=== PATIENT | female | born 1975 | race Caucasian/White ===

== ENCOUNTER 2020-07-06 07:47 | Outpatient (REF) | payer OTHER, SELFPAY ==
[2020-07-06 10:46] LABS: Alanine Aminotransferase 25 U/L (0-31); Albumin Level 4.2 g/dL (3.5-5.0); Alkaline Phosphatase 75 U/L (39-117); Anion Gap 12 (12-20); Aspartate Amino Transferase 20 U/L (5-31); Bilirubin Total 0.2 mg/dL (0.0-1.0); Blood Urea Nitrogen 11 mg/dL (9-16); Calcium 9.2 mg/dL (8.4-10.2); Carbon Dioxide 26 mmol/L (22-29); Chloride 105 mmol/L (96-108); Cholesterol 233 mg/dL; Estimated Glomerular Filt Rate > 60; Glucose Fasting 90 mg/dL (60-99); HDL Cholesterol 44 mg/dL; LDL Cholesterol Calculated 167 mg/dl; Potassium 5.3 mmol/l (3.3-5.1); Sodium 138 mmol/L (135-145); Triglycerides 113 mg/dL
[2020-07-06 10:59] LABS: Vitamin D 25-OH Total 19.9 ng/mL (>30)
== END 2020-07-06 07:48 | disposition home or self-care (01) ==
LOC: HO.10HDL 07:47
PROVIDERS: Absent Provider Internal Medicine Hypertension Specialist; PCP Internal Medicine; Visit Provider Internal Medicine
DX: I10 Essential (primary) hypertension (principal); E55.9 Vitamin D deficiency, unspecified
CPT/HCPCS: 80053; 80061; 82306

== ENCOUNTER 2020-07-24 09:06 | Outpatient (REF) | payer OTHER, SELFPAY ==
[2020-07-24 09:25] LABS: COVID-19 Test Negative (Negative)
== END 2020-07-24 09:07 | disposition home or self-care (01) ==
LOC: HO.EMPCOV 09:06
PROVIDERS: PCP Internal Medicine; Visit Provider Internal Medicine
DX: Z20.828 Contact with and (suspected) exposure to other viral communicable diseases (principal)
CPT/HCPCS: 87635; C9803

== ENCOUNTER 2020-08-07 16:59 | Outpatient (REF) | payer OTHER, SELFPAY ==
--- NOTE | 2020-08-07 17:05 | XR_ITS ---
EXAMINATION: CHEST 2 VIEWS CLINICAL INFORMATION: J18.9 - Pneumonia, unspecified organism . COMPARISON: 11/22/2019. TECHNIQUE: PA and lateral views of the chest obtained. FINDINGS: The lungs are well expanded. No focal infiltrate, effusion, edema, or pneumothorax. Cardiac and mediastinal silhouettes are within normal limits for technique. No acute bony abnormality seen XR/XR chest 2V IMPRESSION: No evidence of acute disease. Specifically no dense consolidation seen.
== END 2020-08-07 17:00 | disposition home or self-care (01) ==
LOC: HO.XRAY 16:59
PROVIDERS: PCP Internal Medicine; Visit Provider Physician Assistant
DX: J18.9 Pneumonia, unspecified organism (principal)
CPT/HCPCS: 71046

== ENCOUNTER 2020-08-18 11:21 | Outpatient (REF) | payer OTHER, SELFPAY ==
[2020-08-18 12:11] LABS: COVID-19 Test Negative (Negative)
== END 2020-08-18 11:22 | disposition home or self-care (01) ==
LOC: HO.EMPCOV 11:21
PROVIDERS: Visit Provider Internal Medicine
DX: Z20.822 Contact with and (suspected) exposure to COVID-19 (principal)
CPT/HCPCS: 36415; 87635; C9803

== ENCOUNTER 2020-09-07 14:31 | Outpatient (REF) | payer OTHER, SELFPAY ==
[2020-09-07 15:53] LABS: MANUAL DIFF FLAG NO
[2020-09-07 15:56] LABS: Basophils Percent Auto 0.4 % (0-2); Eosinophils Absolute Auto 0.4 X10*3/uL (0.0-0.4); Eosinophils Percent Auto 4.9 % (0-4); Hematocrit 38.4 % (37-47); Hemoglobin 13.4 g/dl (12.0-16.0); Imm Gran Abs Auto 0.03 X10*3/uL (0.00-0.03); Imm Gran Pct Auto 0.4 % (0.0-0.4); Lymphocytes Absolute Auto 2.7 X10*3/uL (1.2-4.9); Lymphocytes Percent Auto 32.3 % (20-40); Mean Corpuscular HGB Conc 34.9 g/dl (31.0-35.0); Mean Corpuscular Volume 94.6 fL (80-98); Mean Platelet Volume 9.6 fL (9.4-12.3); Monocytes Absolute Auto 0.7 X10*3/uL (0.1-1.2); Monocytes Percent Auto 8.2 % (2-11); Neutrophils Absolute Auto 4.5 X10*3/uL (2.0-8.3); Neutrophils Percent Auto 53.8 % (45-73); Platelet Count 404 X10*3/uL (160-400); Red Blood Count 4.06 X10*6/uL (4.20-5.50); Red Cell Distribution Width 11.8 % (11.0-16.0); White Blood Count 8.3 X10*3/uL (4.8-10.8)
== END 2020-09-07 14:32 | disposition home or self-care (01) ==
LOC: HO.LAB 14:31
PROVIDERS: PCP Internal Medicine; Visit Provider Internal Medicine Pulmonary Disease
DX: J45.50 Severe persistent asthma, uncomplicated (principal); J45.991 Cough variant asthma; Z91.09 Other allergy status, other than to drugs and biological substances; Z79.899 Other long term (current) drug therapy
CPT/HCPCS: 36415; 82785; 85025; 86003

== ENCOUNTER 2020-09-21 07:49 | Outpatient (REF) | payer OTHER, SELFPAY ==
--- NOTE | 2020-09-21 17:25 | PFT_ITS ---
Forced vital capacity slightly decreased. FEV1 also slightly decreased. [id number] moderately decreased and MVV is normal. Post bronchodilator therapy, there is a slight improvement in [id number]. Total lung capacity and residual volume normal. Diffusion capacity normal. CONCLUSION: Mild degree of small airway obstructive disorder, which improves after bronchodilator therapy. This finding is suggestive of mild bronchial asthma. Clinical correlation is recommended. MD AMBER Ku/MODL / [id number]
== END 2020-09-21 07:50 | disposition home or self-care (01) ==
LOC: HO.RESP 07:49
PROVIDERS: PCP Internal Medicine; Visit Provider Internal Medicine Pulmonary Disease
DX: J45.991 Cough variant asthma (principal)
CPT/HCPCS: 94060; 94727; 94729

== ENCOUNTER → 2020-09-28 09:08 | Outpatient (BNVA) | payer OTHER, SELFPAY | PROVIDERS: PCP Internal Medicine; Visit Provider Internal Medicine Pulmonary Disease ==

== ENCOUNTER 2020-10-05 07:54 | Outpatient (REF) | payer OTHER, SELFPAY ==
--- NOTE | ~2020-10-05 | MM_ITS ---
EXAMINATION: MM SCREENING DIGITAL BREAST TOMOSYNTHESIS, BILATERAL CLINICAL INFORMATION: Screening. Asymptomatic. The lifetime risk of breast cancer based on the Tyrer-Cuzick Model is 7.3%. COMPARISON: Mammography: July 01, 2019 and studies dating back to March 15, 2013 TECHNIQUE: Digital breast tomosynthesis is performed in both the craniocaudal and mediolateral oblique views along with computer-aided detection (CAD). Synthesized 2D images are generated from the tomosynthesis. FINDINGS: The breasts are almost entirely fatty (ACR BI-RADS breast composition Category a). There are no significant masses, abnormal calcifications, or other abnormalities. MM/MM tomosynthesis screening BI IMPRESSION: There are no significant changes from prior study. ASSESSMENT: BI-RADS 1: Negative RECOMMENDATION: Routine annual mammography screening. This patient's information was entered into a reminder system with a target due date for their next mammogram.
== END 2020-10-05 07:55 | disposition home or self-care (01) ==
LOC: HO.MAMMO 07:54
PROVIDERS: PCP Internal Medicine; Visit Provider Internal Medicine
DX: Z12.31 Encounter for screening mammogram for malignant neoplasm of breast (principal)
CPT/HCPCS: 77063; 77067

== ENCOUNTER 2021-01-09 06:03 | Outpatient (REF) | payer OTHER, SELFPAY ==
[2021-01-09 06:55] LABS: Anion Gap 12 (12-20); Blood Urea Nitrogen 12 mg/dL (9-16); Calcium 9.2 mg/dL (8.4-10.2); Carbon Dioxide 23 mmol/L (22-29); Chloride 107 mmol/L (96-108); Cholesterol 248 mg/dL; Estimated Glomerular Filt Rate > 60; HDL Cholesterol 45 mg/dL; LDL Cholesterol Calculated 172 mg/dl; Potassium 4.2 mmol/L (3.3-5.1); Sodium 138 mmol/L (135-145); Triglycerides 157 mg/dL
== END 2021-01-09 06:04 | disposition home or self-care (01) ==
LOC: HO.LAB 06:03
PROVIDERS: Absent Provider Internal Medicine; PCP Internal Medicine; Visit Provider Internal Medicine Hypertension Specialist
DX: I10 Essential (primary) hypertension (principal)
CPT/HCPCS: 36415; 80051; 80061; 82310; 82565; 84520

== ENCOUNTER 2021-02-07 13:54 | Outpatient (REF) | payer OTHER, SELFPAY | END 2021-02-07 13:55 | disposition home or self-care (01) | LOC: HO.LNP 13:54 | PROVIDERS: Visit Provider Internal Medicine | DX: Z20.822 Contact with and (suspected) exposure to COVID-19 (principal) | CPT/HCPCS: U0003; U0005 ==

== ENCOUNTER 2021-04-07 06:37 | Outpatient (REF) | payer OTHER, SELFPAY ==
[2021-04-07 11:48] LABS: Cholesterol 231 mg/dL; HDL Cholesterol 44 mg/dL; LDL Cholesterol Calculated 161 mg/dl; Triglycerides 131 mg/dL
[2021-04-10 22:46] LABS: Immunoglobulin E 355 kU/L (<OR=114)
[2021-04-11 15:30] LABS: Vitamin D 25-OH, D2 <4 ng/mL; Vitamin D 25-OH, D3 20 ng/mL; Vitamin D 25-OH, Total 20 ng/mL (30-100)
== END 2021-04-07 06:38 | disposition home or self-care (01) ==
LOC: HO.HMGCLDS 06:37
PROVIDERS: Internal Medicine Pulmonary Disease; PCP Internal Medicine; Visit Provider Internal Medicine
DX: E55.9 Vitamin D deficiency, unspecified (principal); E78.5 Hyperlipidemia, unspecified; Z91.09 Other allergy status, other than to drugs and biological substances
CPT/HCPCS: 36415; 80061; 82306; 82785

== ENCOUNTER 2021-04-18 11:11 | Outpatient (REF) | payer OTHER, SELFPAY | END 2021-04-18 11:12 | disposition home or self-care (01) | LOC: HO.LNP 11:11 | PROVIDERS: Visit Provider Physician Assistant Medical | DX: Z20.822 Contact with and (suspected) exposure to COVID-19 (principal) | CPT/HCPCS: U0003; U0005 ==

== ENCOUNTER → 2021-05-04 15:37 | Outpatient (BNVA) | payer OTHER, SELFPAY | PROVIDERS: PCP Internal Medicine; Visit Provider Internal Medicine Pulmonary Disease ==

== ENCOUNTER 2021-05-25 08:22 | Outpatient (REF) | payer OTHER, SELFPAY | END 2021-05-25 08:23 | disposition home or self-care (01) | LOC: HO.MDS 08:22 | PROVIDERS: PCP Internal Medicine; Visit Provider Internal Medicine Pulmonary Disease | DX: J45.50 Severe persistent asthma, uncomplicated (principal) | CPT/HCPCS: 96372; J2357 ==

== ENCOUNTER 2021-06-08 14:19 | Outpatient (REF) | payer OTHER, SELFPAY | END 2021-06-08 14:20 | disposition home or self-care (01) | LOC: HO.MDS 14:19 | PROVIDERS: Visit Provider Internal Medicine Pulmonary Disease | DX: J45.50 Severe persistent asthma, uncomplicated (principal) | CPT/HCPCS: 96372; J2357 ==

== ENCOUNTER 2021-06-29 15:28 | Outpatient (REF) | payer OTHER, SELFPAY | END 2021-06-29 15:29 | disposition home or self-care (01) | LOC: HO.MDS 15:28 | PROVIDERS: Visit Provider Internal Medicine Pulmonary Disease | DX: J45.50 Severe persistent asthma, uncomplicated (principal) | CPT/HCPCS: 96372; J2357 ==

== ENCOUNTER 2021-07-09 11:36 | Outpatient (REF) | payer OTHER, SELFPAY ==
[2021-07-09 14:23] LABS: Anion Gap 12 (12-20); Blood Urea Nitrogen 10 mg/dL (9-16); Calcium 9.6 mg/dL (8.4-10.2); Carbon Dioxide 25 mmol/L (22-29); Chloride 106 mmol/L (96-108); Estimated Glomerular Filt Rate > 60; Glucose Random 98 mg/dL (60-115); Potassium 4.2 mmol/L (3.3-5.1); Sodium 139 mmol/L (135-145)
[2021-07-09 14:35] LABS: Creatinine Urine 108.27 mg/dL; Total Protein Urine Random < 7 mg/dL (<12)
[2021-07-09 17:42] LABS: Appearance Urine HAZY; Color Urine YELLOW; Glucose Urine UA NEG (NEG); Leukocyte Esterase Urine NEG (NEG); Nitrite Urine NEG (NEG); Urine Blood NEG (NEG); Urine Ketones NEG (NEG); Urine Protein NEG (NEG-TRACE)
== END 2021-07-09 11:37 | disposition home or self-care (01) ==
LOC: HO.10HDL 11:36
PROVIDERS: Nurse Practitioner Acute Care; Visit Provider Internal Medicine Hypertension Specialist
DX: I10 Essential (primary) hypertension (principal); R30.0 Dysuria
CPT/HCPCS: 36415; 80048; 81003; 84156

== ENCOUNTER 2021-07-13 08:56 | Outpatient (REF) | payer OTHER, SELFPAY | END 2021-07-13 08:57 | disposition home or self-care (01) | LOC: HO.MDS 08:56 | PROVIDERS: Visit Provider Internal Medicine Pulmonary Disease | DX: J45.50 Severe persistent asthma, uncomplicated (principal) | CPT/HCPCS: 96372; J2357 ==

== ENCOUNTER → 2021-07-31 15:34 | Outpatient (BNVA) | payer OTHER, SELFPAY | PROVIDERS: PCP Internal Medicine; Visit Provider Internal Medicine Pulmonary Disease ==

== ENCOUNTER 2021-08-03 15:27 | Outpatient (REF) | payer OTHER, SELFPAY | END 2021-08-03 15:28 | disposition home or self-care (01) | LOC: HO.MDS 15:27 | PROVIDERS: PCP Internal Medicine; Visit Provider Internal Medicine Pulmonary Disease | DX: J45.40 Moderate persistent asthma, uncomplicated (principal) | CPT/HCPCS: 96372; J2357 ==

== ENCOUNTER 2021-08-17 15:35 | Outpatient (REF) | payer OTHER, SELFPAY | END 2021-08-17 15:36 | disposition home or self-care (01) | LOC: HO.MDS 15:35 | PROVIDERS: PCP Internal Medicine; Visit Provider Internal Medicine Pulmonary Disease | DX: J45.50 Severe persistent asthma, uncomplicated (principal) | CPT/HCPCS: 96372; J2357 ==

== ENCOUNTER 2021-08-31 15:29 | Outpatient (REF) | payer OTHER, SELFPAY | END 2021-08-31 15:30 | disposition home or self-care (01) | LOC: HO.MDS 15:29 | PROVIDERS: PCP Internal Medicine; Visit Provider Internal Medicine Pulmonary Disease | DX: J45.50 Severe persistent asthma, uncomplicated (principal) | CPT/HCPCS: 96372; J2357 ==

== ENCOUNTER 2021-09-01 09:01 | Outpatient (REF) | payer OTHER, SELFPAY ==
[2021-09-01 11:25] LABS: Alanine Aminotransferase 31 U/L (0-31); Albumin Level 4.1 g/dL (3.5-5.0); Alkaline Phosphatase 87 U/L (39-117); Anion Gap 11 (12-20); Aspartate Amino Transferase 23 U/L (5-31); Bilirubin Total 0.9 mg/dL (0.0-1.0); Blood Urea Nitrogen 12 mg/dL (9-16); Calcium 9.5 mg/dL (8.4-10.2); Carbon Dioxide 24 mmol/L (22-29); Chloride 108 mmol/L (96-108); Cholesterol 142 mg/dL; Estimated Glomerular Filt Rate > 60; Glucose Fasting 90 mg/dL (60-99); HDL Cholesterol 40 mg/dL; LDL Cholesterol Calculated 88 mg/dl; Potassium 4.4 mmol/L (3.3-5.1); Sodium 139 mmol/L (135-145); Total Protein 6.8 g/dL (6.5-8.0); Triglycerides 71 mg/dL
[2021-09-05 13:21] LABS: Vitamin D 25-OH, D2 <4 ng/mL; Vitamin D 25-OH, D3 16 ng/mL; Vitamin D 25-OH, Total 16 ng/mL (30-100)
== END 2021-09-01 09:02 | disposition home or self-care (01) ==
LOC: HO.HMGCLDS 09:01
PROVIDERS: Visit Provider Internal Medicine
DX: I10 Essential (primary) hypertension (principal); E78.5 Hyperlipidemia, unspecified; E55.9 Vitamin D deficiency, unspecified
CPT/HCPCS: 36415; 80053; 80061; 82306

== ENCOUNTER 2021-09-14 15:41 | Outpatient (REF) | payer OTHER, SELFPAY | END 2021-09-14 15:42 | disposition home or self-care (01) | LOC: HO.MDS 15:41 | PROVIDERS: PCP Internal Medicine; Visit Provider Internal Medicine Pulmonary Disease | DX: J45.50 Severe persistent asthma, uncomplicated (principal) | CPT/HCPCS: 96372; J2357 ==

== ENCOUNTER 2021-09-28 15:30 | Outpatient (REF) | payer OTHER, SELFPAY | END 2021-09-28 15:31 | LOC: HO.MDS 15:30 | PROVIDERS: Visit Provider Internal Medicine Pulmonary Disease | DX: J45.50 Severe persistent asthma, uncomplicated (principal) | CPT/HCPCS: 96372; J2357 ==

== ENCOUNTER 2021-10-12 15:36 | Outpatient (REF) | payer OTHER, SELFPAY | END 2021-10-12 15:37 | disposition home or self-care (01) | LOC: HO.MDS 15:36 | PROVIDERS: Visit Provider Internal Medicine Pulmonary Disease | DX: J45.50 Severe persistent asthma, uncomplicated (principal) | CPT/HCPCS: 96372; J2357 ==

== ENCOUNTER 2021-10-13 08:49 | Outpatient (REF) | payer OTHER, SELFPAY ==
--- NOTE | ~2021-10-13 | MM_ITS ---
EXAMINATION: MM SCREENING DIGITAL BREAST TOMOSYNTHESIS, BILATERAL CLINICAL INFORMATION: Screening. Asymptomatic. The lifetime risk of breast cancer based on the Tyrer-Cuzick Model is 7.0%. COMPARISON: Mammography: October 05, 2020 and studies dating back to March 15, 2013 TECHNIQUE: Digital breast tomosynthesis is performed in both the craniocaudal and mediolateral oblique views along with computer-aided detection (CAD). Synthesized 2D images are generated from the tomosynthesis. FINDINGS: There are scattered areas of fibroglandular density (ACR BI-RADS breast composition Category b). There are no significant masses, abnormal calcifications, or other abnormalities. MM/MM tomosynthesis screening BI IMPRESSION: There are no significant changes from prior study. ASSESSMENT: BI-RADS 1: Negative RECOMMENDATION: Routine annual mammography screening. This patient's information was entered into a reminder system with a target due date for their next mammogram.
== END 2021-10-13 08:50 | disposition home or self-care (01) ==
LOC: HO.MAMMO 08:49
PROVIDERS: PCP Internal Medicine; Visit Provider Internal Medicine
DX: Z12.31 Encounter for screening mammogram for malignant neoplasm of breast (principal)
CPT/HCPCS: 77063; 77067

== ENCOUNTER 2021-10-26 15:25 | Outpatient (REF) | payer OTHER, SELFPAY | END 2021-10-26 15:26 | disposition home or self-care (01) | LOC: HO.MDS 15:25 | PROVIDERS: Visit Provider Internal Medicine Pulmonary Disease | DX: J45.50 Severe persistent asthma, uncomplicated (principal) | CPT/HCPCS: 96372; J2357 ==

== ENCOUNTER 2021-11-09 15:30 | Outpatient (REF) | payer OTHER, SELFPAY | END 2021-11-09 15:31 | disposition home or self-care (01) | LOC: HO.MDS 15:30 | PROVIDERS: Visit Provider Internal Medicine Pulmonary Disease | DX: J45.50 Severe persistent asthma, uncomplicated (principal) | CPT/HCPCS: 96372; J2357 ==

== ENCOUNTER 2021-11-23 14:32 | Outpatient (REF) | payer OTHER, SELFPAY | END 2021-11-23 14:33 | disposition home or self-care (01) | LOC: HO.MDS 14:32 | PROVIDERS: Visit Provider Internal Medicine Pulmonary Disease | DX: J45.50 Severe persistent asthma, uncomplicated (principal) | CPT/HCPCS: 96372; J2357 ==

== ENCOUNTER 2021-12-07 15:14 | Outpatient (REF) | payer OTHER, SELFPAY | END 2021-12-07 15:15 | disposition home or self-care (01) | LOC: HO.MDS 15:14 | PROVIDERS: Visit Provider Internal Medicine Pulmonary Disease | DX: J45.50 Severe persistent asthma, uncomplicated (principal) | CPT/HCPCS: 96372; J2357 ==

== ENCOUNTER 2021-12-21 08:58 | Outpatient (REF) | payer OTHER, SELFPAY | END 2021-12-21 08:59 | disposition home or self-care (01) | LOC: HO.MDS 08:58 | PROVIDERS: Visit Provider Internal Medicine Pulmonary Disease | DX: J45.50 Severe persistent asthma, uncomplicated (principal) | CPT/HCPCS: J2357 ==

== ENCOUNTER 2022-01-18 14:41 | Outpatient (REF) | payer OTHER, SELFPAY | END 2022-01-18 14:42 | disposition home or self-care (01) | LOC: HO.MDS 14:41 | PROVIDERS: Visit Provider Internal Medicine Pulmonary Disease | DX: J45.50 Severe persistent asthma, uncomplicated (principal) | CPT/HCPCS: 96372; J2357 ==

== ENCOUNTER 2022-02-01 11:47 | Outpatient (REF) | payer OTHER, SELFPAY | END 2022-02-01 11:48 | disposition home or self-care (01) | LOC: HO.MDS 11:47 | PROVIDERS: Visit Provider Internal Medicine Pulmonary Disease | DX: J45.50 Severe persistent asthma, uncomplicated (principal) | CPT/HCPCS: 96372; J2357 ==

== ENCOUNTER 2022-02-15 14:25 | Outpatient (REF) | payer OTHER, SELFPAY | END 2022-02-15 14:26 | disposition home or self-care (01) | LOC: HO.MDS 14:25 | PROVIDERS: Visit Provider Internal Medicine Pulmonary Disease | DX: J45.50 Severe persistent asthma, uncomplicated (principal) | CPT/HCPCS: 96372; J2357 ==

== ENCOUNTER 2022-03-01 07:15 | Outpatient (REF) | payer OTHER, SELFPAY | END 2022-03-01 07:16 | disposition home or self-care (01) | LOC: HO.MDS 07:15 | PROVIDERS: Visit Provider Internal Medicine Pulmonary Disease | DX: J45.50 Severe persistent asthma, uncomplicated (principal) | CPT/HCPCS: 96372; J2357 ==

== ENCOUNTER 2022-03-15 15:27 | Outpatient (REF) | payer OTHER, SELFPAY | END 2022-03-15 15:28 | disposition home or self-care (01) | LOC: HO.MDS 15:27 | PROVIDERS: Visit Provider Internal Medicine Pulmonary Disease | DX: J45.50 Severe persistent asthma, uncomplicated (principal) | CPT/HCPCS: 96372; J2357 ==

== ENCOUNTER 2022-03-29 06:58 | Outpatient (REF) | payer OTHER, SELFPAY | END 2022-03-29 06:59 | disposition home or self-care (01) | LOC: HO.MDS 06:58 | PROVIDERS: Visit Provider Internal Medicine Pulmonary Disease | DX: J45.50 Severe persistent asthma, uncomplicated (principal) | CPT/HCPCS: 96372; J2357 ==

== ENCOUNTER 2022-04-12 12:45 | Outpatient (REF) | payer OTHER, SELFPAY | END 2022-04-12 12:46 | disposition home or self-care (01) | LOC: HO.MDS 12:45 | PROVIDERS: Visit Provider Internal Medicine Pulmonary Disease | DX: J45.50 Severe persistent asthma, uncomplicated (principal) | CPT/HCPCS: 96372; J2357 ==

== ENCOUNTER 2022-04-26 15:14 | Outpatient (REF) | payer OTHER, SELFPAY | END 2022-04-26 15:15 | disposition home or self-care (01) | LOC: HO.MDS 15:14 | PROVIDERS: Visit Provider Internal Medicine Pulmonary Disease | DX: J45.50 Severe persistent asthma, uncomplicated (principal) | CPT/HCPCS: 96372; J2357 ==

== ENCOUNTER 2022-05-10 15:01 | Outpatient (REF) | payer OTHER, SELFPAY | END 2022-05-10 15:02 | disposition home or self-care (01) | LOC: HO.MDS 15:01 | PROVIDERS: Visit Provider Internal Medicine Pulmonary Disease | DX: J45.50 Severe persistent asthma, uncomplicated (principal) | CPT/HCPCS: 96372; J2357 ==

== ENCOUNTER 2022-05-24 15:24 | Outpatient (REF) | payer OTHER, SELFPAY | END 2022-05-24 15:25 | disposition home or self-care (01) | LOC: HO.MDS 15:24 | PROVIDERS: Visit Provider Internal Medicine Pulmonary Disease | DX: J45.50 Severe persistent asthma, uncomplicated (principal) | CPT/HCPCS: 96372; J2357 ==

== ENCOUNTER 2022-06-07 15:04 | Outpatient (REF) | payer OTHER, SELFPAY | END 2022-06-07 15:05 | disposition home or self-care (01) | LOC: HO.MDS 15:04 | PROVIDERS: Visit Provider Internal Medicine Pulmonary Disease | DX: J45.50 Severe persistent asthma, uncomplicated (principal) | CPT/HCPCS: 96372; J2357 ==

== ENCOUNTER 2022-06-11 07:58 | Outpatient (REF) | payer OTHER, SELFPAY ==
[2022-06-11 09:09] LABS: Alanine Aminotransferase 26 U/L (0-31); Albumin Level 4.3 g/dL (3.5-5.0); Alkaline Phosphatase 78 U/L (39-117); Anion Gap 12 (12-20); Aspartate Amino Transferase 14 U/L (5-31); Bilirubin Total 0.8 mg/dL (0.0-1.0); Blood Urea Nitrogen 9 mg/dL (9-16); Calcium 9.1 mg/dL (8.4-10.2); Carbon Dioxide 23 mmol/L (22-29); Chloride 109 mmol/L (96-108); Cholesterol 137 mg/dL; Estimated Glomerular Filt Rate > 60; Glucose Fasting 99 mg/dL (60-99); HDL Cholesterol 44 mg/dL; LDL Cholesterol Calculated 78 mg/dl; Potassium 4.2 mmol/L (3.3-5.1); Sodium 140 mmol/L (135-145); Total Protein 6.7 g/dL (6.5-8.0); Triglycerides 78 mg/dL; Vitamin D 25-OH Total 20.7 ng/mL (>30)
== END 2022-06-11 07:59 | disposition home or self-care (01) ==
LOC: HO.LAB 07:58
PROVIDERS: PCP Internal Medicine; Visit Provider Internal Medicine
DX: E55.9 Vitamin D deficiency, unspecified (principal); E78.5 Hyperlipidemia, unspecified; E78.00 Pure hypercholesterolemia, unspecified
CPT/HCPCS: 36415; 80053; 80061; 82306

== ENCOUNTER 2022-06-25 12:41 | Outpatient (REF) | payer OTHER, SELFPAY ==
--- NOTE | ~2022-06-25 | XR_ITS ---
EXAMINATION: XR ELBOW, RIGHT CLINICAL INFORMATION: Right elbow pain. COMPARISON: None TECHNIQUE: AP, lateral, and oblique views of the right elbow. An indicator arrow points to the lateral aspect of the right elbow. FINDINGS: The bones and soft tissues are normal. No fracture or joint effusion. Alignment is anatomic. Joint spaces are maintained. XR/XR elbow RT min 3V IMPRESSION: Unremarkable right elbow.
== END 2022-06-25 12:42 | disposition home or self-care (01) ==
LOC: HO.XRAY 12:41
PROVIDERS: Visit Provider Student in an Organized Health Care Education/Training Program
DX: M77.11 Lateral epicondylitis, right elbow (principal)
CPT/HCPCS: 73080

== ENCOUNTER 2022-06-27 08:33 | Outpatient (REF) | payer OTHER, SELFPAY ==
[2022-06-27 11:08] LABS: Anion Gap 11 (12-20); Blood Urea Nitrogen 9 mg/dL (9-16); Calcium 9.5 mg/dL (8.4-10.2); Carbon Dioxide 26 mmol/L (22-29); Chloride 104 mmol/L (96-108); Estimated Glomerular Filt Rate > 60; Glucose Random 93 mg/dL (60-115); Potassium 4.5 mmol/L (3.3-5.1); Sodium 136 mmol/L (135-145)
[2022-06-27 14:19] LABS: Creatinine Urine 176.32 mg/dL; Total Protein Urine Random < 7 mg/dL (<12)
== END 2022-06-27 08:34 | disposition home or self-care (01) ==
LOC: HO.10HDL 08:33
PROVIDERS: Visit Provider Internal Medicine Hypertension Specialist
DX: I10 Essential (primary) hypertension (principal)
CPT/HCPCS: 36415; 80048; 84156

== ENCOUNTER 2022-07-05 15:30 | Outpatient (REF) | payer OTHER, SELFPAY | END 2022-07-05 15:31 | disposition home or self-care (01) | LOC: HO.MDS 15:30 | PROVIDERS: Visit Provider Internal Medicine Pulmonary Disease | DX: J45.50 Severe persistent asthma, uncomplicated (principal) | CPT/HCPCS: 96372; J2357 ==

== ENCOUNTER → 2022-07-17 07:45 | Outpatient (BNVA) | payer OTHER, SELFPAY | PROVIDERS: PCP Internal Medicine; Visit Provider Physician Assistant | DX: M77.11 Lateral epicondylitis, right elbow (principal) ==

== ENCOUNTER 2022-07-19 11:31 | Outpatient (REF) | payer OTHER, SELFPAY | END 2022-07-19 11:32 | disposition home or self-care (01) | LOC: HO.MDS 11:31 | PROVIDERS: Visit Provider Internal Medicine Pulmonary Disease | DX: J45.50 Severe persistent asthma, uncomplicated (principal) | CPT/HCPCS: 96372; J2357 ==

== ENCOUNTER 2022-08-02 14:59 | Outpatient (REF) | payer OTHER, SELFPAY | END 2022-08-02 15:00 | disposition home or self-care (01) | LOC: HO.MDS 14:59 | PROVIDERS: Visit Provider Internal Medicine Pulmonary Disease | DX: J45.50 Severe persistent asthma, uncomplicated (principal) | CPT/HCPCS: 96372; J2357 ==

== ENCOUNTER 2022-08-16 15:12 | Outpatient (REF) | payer OTHER, SELFPAY | END 2022-08-16 15:13 | disposition home or self-care (01) | LOC: HO.MDS 15:12 | PROVIDERS: Visit Provider Internal Medicine Pulmonary Disease | DX: J45.50 Severe persistent asthma, uncomplicated (principal) | CPT/HCPCS: 96372; J2357 ==

== ENCOUNTER → 2022-08-22 08:29 | Outpatient (BNVA) | payer OTHER, SELFPAY | PROVIDERS: PCP Internal Medicine; Visit Provider Internal Medicine Pulmonary Disease | DX: Z13.89 Encounter for screening for other disorder (principal) ==

== ENCOUNTER 2022-08-30 15:05 | Outpatient (REF) | payer OTHER, SELFPAY | END 2022-08-30 15:06 | disposition home or self-care (01) | LOC: HO.MDS 15:05 | PROVIDERS: Visit Provider Internal Medicine Pulmonary Disease | DX: J45.50 Severe persistent asthma, uncomplicated (principal) | CPT/HCPCS: 96372; J2357 ==

== ENCOUNTER 2022-09-13 15:20 | Outpatient (REF) | payer OTHER, SELFPAY | END 2022-09-13 15:21 | disposition home or self-care (01) | LOC: HO.MDS 15:20 | PROVIDERS: Visit Provider Internal Medicine Pulmonary Disease | DX: J45.50 Severe persistent asthma, uncomplicated (principal) | CPT/HCPCS: 96372; J2357 ==

== ENCOUNTER 2022-09-18 07:30 | Outpatient (RCR) | payer OTHER, SELFPAY ==
--- NOTE | 2022-08-21 08:02 | MHC.OT.EP ---
[address] [phone] Occupational Therapy Plan of Care Date of Evaluation: 08/21/22 Diagnosis: Right Tennis Elbow Pain Location: Right lateral elbow > right medial elbow, radiates up forearm Pain Score: 8 Pain Scale Used: Numeric (0 - 10) Aggravating Factors: Gripping, bending arm with sleep Alleviating Factors: Rx Cream from ortho, warm shower, ice pack to elbow during work, CFB at work helps a bit Assessment: 46 yo right hand dominant female w/ hx of right elbow pain over the past year of so, presents to OT from [facility], she has declined cortisone injection at this time and open to other conservative treatments. Tiesha is an employee at [employer] and works at the [employer], has difficulty answering phone, clamping lines and grasping objects. She also has pain with every day home activities that require gripping, lifting or carrying. Assessment is consistent w/ right lateral epicondylitis, possibly with some medial epicondylitis as well. We have discussed joint protection, use of counter force brace with daily activities and nighttime elbow brace to reduce flexion of elbow while sleeping. She is very motivated and receptive to therapy and will likely benefit from course of outpatient OT. Frequency and Duration: The patient will be seen 2x/wk for 4 weeks Short Term Goals: Ind w/ CFB for work and home tasks Ind w/ nighttime elbow brace use Ind w/ use of heat amd ice modalities appropriately Good follow through w/ Mill's stretches and incorporation of light cardio activity Technical Writer Goals: QuickDASH score <30 pts Right gross grasp >30lb w/ minimal pain Pt to demo lift an carry 20lb w/ minimal pain Pt to report ease w/ work tasks and modifications as needed Progress to resistance exercises for tennis elbow Treatment Plan: Therapeutic Exercise Therapeutic Activity Home Exercise Program Splinting Patient Education Edema Control ADL Training Ultrasound MHP Cold Packs Joint Mobilization Soft Tissue Mobilization Kinesiotaping Pt reports allergies/sensitivities to steroids as well as tapes/ahesives Electronically Signed By: Michelle Franco OTR/L CHT Please Sign and return to therapist. Thank you once again for your referral.
== END 2022-09-23 07:49 | disposition home or self-care (01) ==
LOC: HO.OT 07:30
PROVIDERS: Visit Provider Physician Assistant
DX: M77.11 Lateral epicondylitis, right elbow (principal)
CPT/HCPCS: 97033; 97035; 97110; 97140; 97165

== ENCOUNTER → 2022-09-27 07:53 | Outpatient (BNVA) | payer OTHER, SELFPAY | PROVIDERS: PCP Internal Medicine; Visit Provider Internal Medicine | DX: Z13.89 Encounter for screening for other disorder (principal) | CPT/HCPCS: 73562; 99203 ==

== ENCOUNTER 2022-09-27 10:34 | Outpatient (REF) | payer OTHER, SELFPAY | END 2022-09-27 10:35 | disposition home or self-care (01) | LOC: HO.MDS 10:34 | PROVIDERS: Visit Provider Internal Medicine Pulmonary Disease | DX: J45.50 Severe persistent asthma, uncomplicated (principal) | CPT/HCPCS: 96372; J2357 ==

== ENCOUNTER → 2022-09-30 08:04 | Outpatient (BNVA) | payer OTHER, SELFPAY | PROVIDERS: PCP Internal Medicine; Visit Provider Internal Medicine | DX: Z13.89 Encounter for screening for other disorder (principal) | CPT/HCPCS: 99213 ==

== ENCOUNTER → 2022-10-08 07:59 | Outpatient (BNVA) | payer OTHER, SELFPAY | PROVIDERS: PCP Internal Medicine; Visit Provider Internal Medicine | DX: Z13.89 Encounter for screening for other disorder (principal) | CPT/HCPCS: 99213 ==

== ENCOUNTER 2022-10-11 15:15 | Outpatient (REF) | payer OTHER, SELFPAY | END 2022-10-11 15:16 | disposition home or self-care (01) | LOC: HO.MDS 15:15 | PROVIDERS: Visit Provider Internal Medicine Pulmonary Disease | DX: J45.50 Severe persistent asthma, uncomplicated (principal) | CPT/HCPCS: 96372; J2357 ==

== ENCOUNTER 2022-10-25 15:12 | Outpatient (REF) | payer OTHER, SELFPAY | END 2022-10-25 15:13 | disposition home or self-care (01) | LOC: HO.MDS 15:12 | PROVIDERS: Visit Provider Internal Medicine Pulmonary Disease | DX: J45.50 Severe persistent asthma, uncomplicated (principal) | CPT/HCPCS: 96372; J2357 ==

== ENCOUNTER 2022-10-26 08:52 | Outpatient (REF) | payer OTHER, SELFPAY ==
--- NOTE | ~2022-10-26 | MM_ITS ---
EXAMINATION: MM SCREENING DIGITAL BREAST TOMOSYNTHESIS, BILATERAL CLINICAL INFORMATION: Screening. Asymptomatic. The lifetime risk of breast cancer based on the Tyrer-Cuzick Model is 5%. COMPARISON: Mammography: 10/13/2021, 10/05/2020, 07/01/2019 TECHNIQUE: Digital breast tomosynthesis is performed in both the craniocaudal and mediolateral oblique views along with computer-aided detection (CAD). Synthesized 2D images are generated from the tomosynthesis. FINDINGS: There are scattered areas of fibroglandular density (ACR BI-RADS breast composition Category b). Breast tissue composition borders on predominantly fatty. Background stromal and fibroglandular densities are stable. There are no significant masses, abnormal calcifications, or other abnormalities. No developing density or architectural abnormality. The axilla and skin contours are unremarkable. MM/MM tomosynthesis screening BI IMPRESSION: No mammographic evidence of malignancy. ASSESSMENT: BI-RADS 1: Negative RECOMMENDATION: Routine annual mammography screening. This patient's information was entered into a reminder system with a target due date for their next mammogram.
== END 2022-10-26 08:53 | disposition home or self-care (01) ==
LOC: HO.MAMMO 08:52
PROVIDERS: PCP Internal Medicine; Visit Provider Internal Medicine
DX: Z12.31 Encounter for screening mammogram for malignant neoplasm of breast (principal)
CPT/HCPCS: 77063; 77067

== ENCOUNTER 2022-10-28 12:37 | Outpatient (REF) | payer OTHER, SELFPAY | END 2022-10-28 12:38 | disposition home or self-care (01) | LOC: HO.HOSX 12:37 | PROVIDERS: Visit Provider Physician Assistant | DX: Z13.89 Encounter for screening for other disorder (principal) ==

== ENCOUNTER 2022-11-08 15:17 | Outpatient (REF) | payer OTHER, SELFPAY | END 2022-11-08 15:18 | disposition home or self-care (01) | LOC: HO.MDS 15:17 | PROVIDERS: Visit Provider Internal Medicine Pulmonary Disease | DX: J45.50 Severe persistent asthma, uncomplicated (principal) | CPT/HCPCS: 96372; J2357 ==

== ENCOUNTER 2022-11-22 15:12 | Outpatient (REF) | payer OTHER, SELFPAY | END 2022-11-22 15:13 | disposition home or self-care (01) | LOC: HO.MDS 15:12 | PROVIDERS: Visit Provider Internal Medicine Pulmonary Disease | DX: J45.50 Severe persistent asthma, uncomplicated (principal) | CPT/HCPCS: 96372; J2357 ==

== ENCOUNTER 2022-12-06 08:04 | Outpatient (REF) | payer OTHER, SELFPAY | END 2022-12-06 08:05 | disposition home or self-care (01) | LOC: HO.MDS 08:04 | PROVIDERS: Visit Provider Internal Medicine Pulmonary Disease | DX: J45.50 Severe persistent asthma, uncomplicated (principal) | CPT/HCPCS: 96372; J2357 ==

== ENCOUNTER 2022-12-20 15:18 | Outpatient (REF) | payer OTHER, SELFPAY | END 2022-12-20 15:19 | disposition home or self-care (01) | LOC: HO.MDS 15:18 | PROVIDERS: Visit Provider Internal Medicine Pulmonary Disease | DX: J45.50 Severe persistent asthma, uncomplicated (principal) | CPT/HCPCS: 96372; J2357 ==

== ENCOUNTER 2023-01-03 15:21 | Outpatient (REF) | payer OTHER, SELFPAY | END 2023-01-03 15:22 | disposition home or self-care (01) | LOC: HO.MDS 15:21 | PROVIDERS: Visit Provider Internal Medicine Pulmonary Disease | DX: J45.50 Severe persistent asthma, uncomplicated (principal) | CPT/HCPCS: 96372; J2357 ==

== ENCOUNTER 2023-01-17 15:27 | Outpatient (REF) | payer OTHER, SELFPAY | END 2023-01-17 15:28 | disposition home or self-care (01) | LOC: HO.MDS 15:27 | PROVIDERS: Visit Provider Internal Medicine Pulmonary Disease | DX: J45.50 Severe persistent asthma, uncomplicated (principal) | CPT/HCPCS: 96372; J2357 ==

== ENCOUNTER 2023-01-31 07:27 | Outpatient (REF) | payer OTHER, SELFPAY | END 2023-01-31 07:28 | disposition home or self-care (01) | LOC: HO.MDS 07:27 | PROVIDERS: Visit Provider Internal Medicine Pulmonary Disease | DX: J45.50 Severe persistent asthma, uncomplicated (principal) | CPT/HCPCS: 96372; J2357 ==

== ENCOUNTER 2023-02-14 11:51 | Outpatient (REF) | payer OTHER, SELFPAY | END 2023-02-14 11:52 | disposition home or self-care (01) | LOC: HO.MDS 11:51 | PROVIDERS: Visit Provider Internal Medicine Pulmonary Disease | DX: J45.50 Severe persistent asthma, uncomplicated (principal) | CPT/HCPCS: 96372; J2357 ==

== ENCOUNTER 2023-02-28 07:26 | Outpatient (REF) | payer OTHER, SELFPAY | END 2023-02-28 07:27 | disposition home or self-care (01) | LOC: HO.MDS 07:26 | PROVIDERS: Visit Provider Internal Medicine Pulmonary Disease | DX: J45.50 Severe persistent asthma, uncomplicated (principal) | CPT/HCPCS: 96372; J2357 ==

== ENCOUNTER 2023-03-14 07:39 | Outpatient (REF) | payer OTHER, SELFPAY | END 2023-03-14 07:40 | disposition home or self-care (01) | LOC: HO.MDS 07:39 | PROVIDERS: Visit Provider Internal Medicine Pulmonary Disease | DX: J45.50 Severe persistent asthma, uncomplicated (principal) | CPT/HCPCS: 96372; J2357 ==

== ENCOUNTER 2023-03-18 15:28 | Outpatient (AMB) | payer OTHER, SELFPAY ==
--- NOTE | 2023-03-18 15:31 | MHC.OFFVIS ---
Intake Vital Signs 03/18/23 15:32 Height 4 ft 11 in Weight 187 lb 6.287 oz BMI 37.8 BP 120/84 Blood Pressure Location Rt brachial Position Sitting Pulse 94 Pulse Source Pulse Oximeter Pulse Oximetry (%) 99 Oxygen Delivery Method Room Air Intake Visit Reasons: Asthma Allergies pineapple [PINEAPPLE] Allergy (Severe, Verified 03/18/23 15:38) SWELLING shellfish derived [SHELLFISH DERIVED] Allergy (Severe, Verified 03/18/23 15:38) ANAPHYLAXIS animal dander [PET DANDER] Allergy (Intermediate, Verified 03/18/23 15:38) ITCHING morphine [Morphine] Allergy (Intermediate, Verified 03/18/23 15:38) ITCHING NSAIDS (Non-Steroidal Anti-Inflamma [NSAIDS (NON-STEROIDAL ANTI-INFLAMMA] Allergy (Intermediate, Verified 03/18/23 15:38) BLEEDING sulfamethoxazole [From Bactrim] Allergy (Intermediate, Verified 03/18/23 15:38) RASH trimethoprim [From Bactrim] Allergy (Intermediate, Verified 03/18/23 15:38) RASH HPI Asthma HPI Details 47-year-old lady, nonsmoker, with underlying history of asthma diagnosed when she was a child, now followed for underlying moderate to severe persistent allergic asthma and multiple environmental allergies.? She has been using Xolair, Advair, and albuterol MDI previous with good control of her underlying symptoms.? She denies any recent exacerbations.? Patient did ran out of Advair and has not refill it for several months and now his symptoms much worse controlled. She also also complain of unrestful sleep, snoring, and daytime sleepiness. [facility] Medical History Asthma exacerbation Contact with and (suspected) exposure to other viral communicable diseases Depression with anxiety Essential hypertension Hypovitaminosis D Insomnia Mild recurrent major depression Moderate asthma Morbid obesity with BMI of 40.0-44.9, adult Pneumonia Pure hypercholesterolemia Surgical History History of hysterectomy Family History Mother Hypertension Father Hypertension Mental health disorder Other Family history of rheumatoid arthritis Social History Housing: House Alcohol intake: never Patient Tobacco Use Status: Never used Tobacco e-Cigarette/Vaping Use: Never Used Second Hand Smoke Exposure: No service: No Current occupational status: employed Current occupation: [employer], rt hand Current occupational exposures/hazards: No Cognitive needs: No Hearing needs: No Vision needs: Yes (Glasses) Review of Systems Const Reports daytime sleepiness, Denies excessive sweating, Reports fatigue, Denies fever(s), Reports lethargy, Denies malaise, Denies night sweats, Denies snoring and Denies weight loss Eyes Denies blurry vision and Denies itchy eyes ENT Denies nasal congestion, Denies post nasal drip, Denies sinus pain, Denies sinus pressure and Denies other ( Thrush) Card Denies chest pain, Denies pedal edema, Denies dyspnea, Reports dyspnea on exertion, Denies orthopnea and Denies paroxysmal nocturnal dyspnea Resp Denies cough, Denies hemoptysis, Denies excessive phlegm production, Denies dyspnea, Reports dyspnea on exertion, Denies snoring and Denies wheezing GI Denies abdominal pain and Denies heartburn Musc Denies myalgias, Denies arthralgias and Denies joint swelling Skin/Breast Denies rash Neuro Denies memory loss and Denies seizure-like activity Psych Denies abnormal sleep pattern, Denies anxiety and Denies memory loss Endo Denies excessive sweating, Reports fatigue and Denies heat intolerance Lon/Lymph Denies easy bruising Aller/Immun Denies itchy eyes, Denies seasonal rhinorrhea and Denies wheezing Physical Exam Vital Signs: Last Vital Signs Pulse 94 03/18/23 15:32 BP 120/84 03/18/23 15:32 Pulse Ox 99 03/18/23 15:32 Oxygen Delivery Method Room Air 03/18/23 15:32 BMI result Body Mass Index 37.8 Const General: no acute distress and alert Nutritional Appearance: obese Orientation/consciousness: Other orientation findings ( oriented) HEENT Head: Yes atraumatic Eyes General: appearance normal, both eyes and all related structures Sclerae: sclerae normal EOM: EOMs intact bilaterally Neck Neck: Yes supple Lymphatic: no lymphadenopathy noted Resp Effort & Inspection: normal respiratory effort and no use of accessory muscles Auscultation: clear to auscultation bilaterally Cardio Rate: regular rate Rhythm: regular rhythm Heart sounds: no gallops, no murmurs and no rubs Skin General skin exam: other ( warm) Extrem General: No clubbing, No cyanosis and No edema Assessment & Plan Assessment & Plan (1) Severe persistent allergic asthma: Code(s): J45.50 - Severe persistent asthma, uncomplicated Plan: Suboptimally controlled as patient has ran out of Advair. Restart Advair. Continue Xolair and albuterol MDI. (2) JUSTO (obstructive sleep apnea): Code(s): G47.33 - Obstructive sleep apnea (adult) (pediatric) Plan: Snoring, restful sleep, daytime somnolence. [place] Sleepiness Scale score of 16. Will obtain home sleep study. Orders: Orders RT home sleep study Today G47.33 - Obstructive sleep apnea (adult) (pediatric) Medications: Refilled fluticasone propion-salmeterol 250-50 mcg/dose (Advair Diskus) 1 ea PO BID 180 caps 2RF J45.991 - Cough variant asthma Coding Level of Care Code Est Pt Level 4 (28565) Diagnoses Severe persistent allergic asthma J45.50 JUSTO (obstructive sleep apnea) G47.33
[2023-03-18 15:32] VITALS: BP 120/84; PULSE 94; O2SAT 99; BMI 37.8
== END 2023-03-18 15:51 | disposition home or self-care (01) ==
PROVIDERS: PCP Internal Medicine; Visit Provider Internal Medicine Pulmonary Disease
DX: J45.50 Severe persistent asthma, uncomplicated (principal); G47.33 Obstructive sleep apnea (adult) (pediatric)
CPT/HCPCS: 99214

== ENCOUNTER → 2023-03-18 15:28 | Outpatient (BNVA) | payer OTHER, SELFPAY | PROVIDERS: Visit Provider Internal Medicine Pulmonary Disease ==

== ENCOUNTER → 2023-03-27 10:58 | Outpatient (REF) | payer OTHER, SELFPAY | LOC: HO.SL 10:58 | PROVIDERS: PCP Internal Medicine; Visit Provider Internal Medicine Pulmonary Disease | DX: G47.33 Obstructive sleep apnea (adult) (pediatric) (principal) | CPT/HCPCS: 95806 ==

== ENCOUNTER → 2023-03-27 11:08 | Outpatient (BNV) | payer OTHER, SELFPAY | PROVIDERS: PCP Internal Medicine; Visit Provider Internal Medicine | DX: R06.83 Snoring (principal) | CPT/HCPCS: 95806 ==

== ENCOUNTER 2023-03-28 07:12 | Outpatient (REF) | payer OTHER, SELFPAY | END 2023-03-28 07:13 | disposition home or self-care (01) | LOC: HO.MDS 07:12 | PROVIDERS: Visit Provider Internal Medicine Pulmonary Disease | DX: J45.50 Severe persistent asthma, uncomplicated (principal) | CPT/HCPCS: 96372; J2357 ==

== ENCOUNTER 2023-04-11 15:26 | Outpatient (REF) | payer OTHER, SELFPAY | END 2023-04-11 15:27 | disposition home or self-care (01) | LOC: HO.MDS 15:26 | PROVIDERS: Visit Provider Internal Medicine Pulmonary Disease | DX: J45.50 Severe persistent asthma, uncomplicated (principal) | CPT/HCPCS: 96372; J2357 ==

== ENCOUNTER 2023-04-25 15:29 | Outpatient (REF) | payer OTHER, SELFPAY | END 2023-04-25 15:30 | disposition home or self-care (01) | LOC: HO.MDS 15:29 | PROVIDERS: Visit Provider Internal Medicine Pulmonary Disease | DX: J45.50 Severe persistent asthma, uncomplicated (principal) | CPT/HCPCS: 96372; J2357 ==

== ENCOUNTER 2023-04-29 08:35 | Outpatient (AMB) | payer OTHER, SELFPAY ==
--- NOTE | 2023-04-29 08:35 | MHC.PC.OV ---
Intake Visit Reasons: Headaches, stomach ache, congested/ per Jessy Intake Note: pt states body aches, chills, headaches and congestion X3days Allergies pineapple [PINEAPPLE] Allergy (Severe, Verified 04/29/23 08:40) SWELLING shellfish derived [SHELLFISH DERIVED] Allergy (Severe, Verified 04/29/23 08:40) ANAPHYLAXIS animal dander [PET DANDER] Allergy (Intermediate, Verified 04/29/23 08:40) ITCHING morphine [Morphine] Allergy (Intermediate, Verified 04/29/23 08:40) ITCHING NSAIDS (Non-Steroidal Anti-Inflamma [NSAIDS (NON-STEROIDAL ANTI-INFLAMMA] Allergy (Intermediate, Verified 04/29/23 08:40) BLEEDING sulfamethoxazole [From Bactrim] Allergy (Intermediate, Verified 04/29/23 08:40) RASH trimethoprim [From Bactrim] Allergy (Intermediate, Verified 04/29/23 08:40) RASH Medication List - Last Reconciled 04/29/23 by TRISTON Franklin albuterol sulfate 90 mcg/actuation 2 puffs inhalation Q6H PRN atorvastatin 10 mg PO BEDTIME 90 days bupropion HCl 150 mg PO QAM 90 days cholecalciferol (vitamin D3) 50 mcg PO DAILY 90 days diclofenac sodium 1% (Arthritis Pain (diclofenac)) 2 grams topical QID 30 days fluticasone propion-salmeterol 250-50 mcg/dose (Advair Diskus) 1 ea PO BID omalizumab (Xolair) 300 mg (2 mL) subcut Q2W 28 days sumatriptan succinate 50 mg PO trazodone 100 mg (2 x 50 mg) PO BEDTIME PRN 90 days verapamil ER 240 mg PO DAILY zolpidem 5 mg PO BEDTIME PRN 5 days Tobacco use date assessed: 04/29/23 HPI Headaches, stomach ache, congested/ per Jessy HPI Details This is a telehealth visit and patient was verified by name and date of . Patient is a 47-year-old female who presents today with body aches, chills, congestion, soft bowel movements that are better today for the past 3 days. She also reports dry cough at night although this is chronic for her, she has asthma. She reports negative COVID test yesterday. Reports that her daughter had COVID 3 weeks ago. Her mom was recently with the same symptoms as patient. Patient reports she has been using her inhalers as prescribed, denies shortness of breath or wheezing. Patient also reports ongoing nausea for the past 3 days. She did eat soup yesterday. [facility] Medical History Pure hypercholesterolemia Morbid obesity with BMI of 40.0-44.9, adult Mild recurrent major depression Asthma exacerbation Contact with and (suspected) exposure to other viral communicable diseases Hypovitaminosis D Insomnia Depression with anxiety Moderate asthma Essential hypertension Pneumonia Surgical History History of hysterectomy Family History Mother Hypertension Father Hypertension Mental health disorder Other Family history of rheumatoid arthritis Social History Housing: House Alcohol intake: never Patient Tobacco Use Status: Never used Tobacco e-Cigarette/Vaping Use: Never Used Second Hand Smoke Exposure: No service: No Current occupational status: employed Current occupation: [employer], rt hand Current occupational exposures/hazards: No Cognitive needs: No Hearing needs: No Vision needs: Yes (Glasses) Questionnaire Thrive Questionnaire Date Thrive assessed: 01/08/23 AUDIT C Alcohol Use Questionnaire (AUDIT-C) 1. How often do you have a drink containing alcohol?: Never Total Score: 0 Score Reviewed/Action Taken: No OLIVIA-7 AMB Questionnaire OLIVIA-7 Date OLIVIA - 7 assessed: 01/08/23 Source: Developed by Drs. Rohan Gil, Alexandra Cheng, Edd Noonan and colleagues, with an educational michele from [employer]. Review of Systems Const Reports body aches, Reports chills, Reports fatigue, Denies fever(s) and Reports headache(s) ENT Denies dizziness, Denies otalgia, Reports headache(s), Denies nasal discharge, Denies sinus pain and Denies sore throat Card Denies chest pain, Denies edema, Denies lightheadedness and Denies dyspnea Resp Reports cough, Denies dyspnea and Denies wheezing GI Details: Soft stools Denies constipation, Denies diarrhea, Reports nausea and Denies vomiting Denies dysuria Musc Reports myalgias Skin/Breast Denies rash Neuro Denies dizziness and Reports headache(s) Endo Reports fatigue Aller/Immun Denies wheezing Physical exam (Primary Care) Tobacco/Smoking Status: Tobacco use Status Tobacco use date assessed 04/29/23 04/29/23 08:38 Patient Tobacco Use Status Never used Tobacco 04/29/23 08:38 Tobacco use type 01/08/23 07:28 e-Cigarette/Vaping Use Never Used 04/29/23 08:38 Thrive Assessment: Date of Thrive Assessment Date Thrive assessed 01/08/23 04/29/23 08:38 Const Other: This is a telehealth visit unable to obtain physical exam Speech is normal Telehealth Telehealth Location of provider rendering services: practice address Location of patient: address on file Patient Identification confirmed using: Name, : Yes Telehealth method: voice only (iphone) Patient verbally consented to treatment: Yes Patient verbally consented to billing insurance company: Yes Patient informed of any privacy concerns related to visit: Yes Minutes spent on Phone/Video with Pt.: 9 Assessment and Plan Assessment & Plan (1) Nausea: Code(s): R11.0 - Nausea Plan: ? Gastroenteritis, patient also with soft stools for the past 3 days. Mother recently with the same symptoms. Encouraged bland diet. Will provide with Zofran p.r.n. for nausea. Work note provided and return to work 05/01/2023. (2) Fatigue: Code(s): R53.83 - Other fatigue Plan: COVID test negative yesterday. Will test for flu. Patient can try [id number] Tylenol 650 mg every 6 hours as needed for body aches. Increase fluid consumption. Patient agreed with the plan. Orders: Orders Influenza A B2 ID NOW ([place]) Today R53.83 - Other fatigue Medications: New ondansetron 4 mg PO Q8H PRN 7 tabs 0RF nausea and vomiting R11.0 - Nausea Coding Level of Care Code Tele Est Pt Level 3 (06590) Diagnoses Nausea R11.0 Fatigue R53.83
== END 2023-04-29 09:34 | disposition home or self-care (01) ==
LOC: HO.HMGH 08:35
PROVIDERS: PCP Internal Medicine; Visit Provider Nurse Practitioner Family
DX: R11.0 Nausea (principal); R53.83 Other fatigue
CPT/HCPCS: 99213

== ENCOUNTER 2023-04-29 10:06 | Outpatient (REF) | payer OTHER, SELFPAY ==
[2023-04-29 11:04] LABS: IDNOW Serial# BCCEAD1C; Influenza A Negative (Negative); Influenza B2 Negative (Negative)
== END 2023-04-29 10:07 | disposition home or self-care (01) ==
LOC: HO.LAB 10:06
PROVIDERS: PCP Internal Medicine; Visit Provider Nurse Practitioner Family
DX: R53.83 Other fatigue (principal)
CPT/HCPCS: 87502

== ENCOUNTER 2023-05-09 15:09 | Outpatient (REF) | payer OTHER, SELFPAY | END 2023-05-09 15:10 | disposition home or self-care (01) | LOC: HO.MDS 15:09 | PROVIDERS: Visit Provider Internal Medicine Pulmonary Disease | DX: J45.50 Severe persistent asthma, uncomplicated (principal) | CPT/HCPCS: 96372; J2357 ==

== ENCOUNTER 2023-05-20 15:28 | Outpatient (AMB) | payer OTHER, SELFPAY ==
--- NOTE | 2023-05-20 15:31 | A.OFFVIS_ITS ---
Intake Vital Signs 05/20/23 15:32 Height 4 ft 11 in Weight 187 lb BMI 37.8 BP 132/97 H Blood Pressure Location Lt brachial Position Sitting Pulse 89 Pulse Source Doppler Pulse Oximetry (%) 99 Oxygen Delivery Method Room Air Intake Visit Reasons: Asthma Allergies pineapple [PINEAPPLE] Allergy (Severe, Verified 05/20/23 15:37) SWELLING shellfish derived [SHELLFISH DERIVED] Allergy (Severe, Verified 05/20/23 15:37) ANAPHYLAXIS animal dander [PET DANDER] Allergy (Intermediate, Verified 05/20/23 15:37) ITCHING morphine [Morphine] Allergy (Intermediate, Verified 05/20/23 15:37) ITCHING NSAIDS (Non-Steroidal Anti-Inflamma [NSAIDS (NON-STEROIDAL ANTI-INFLAMMA] Allergy (Intermediate, Verified 05/20/23 15:37) BLEEDING sulfamethoxazole [From Bactrim] Allergy (Intermediate, Verified 05/20/23 15:37) RASH trimethoprim [From Bactrim] Allergy (Intermediate, Verified 05/20/23 15:37) RASH HPI Asthma HPI Details 47-year-old lady, nonsmoker, with underl maria fernanda history of asthma diagnosed when she was a child, now followed for underlying moderate to severe persistent allergic asthma and multiple environmental allergies.? At the last office visit patient has been restarted on Advair and continued on Xolair, and albuterol MDI with good control of her symptoms. She denies any recent exacerbations. She has completed her home sleep study that does not show underlying sleep apnea. [facility] Medical History (Updated 05/20/23 @ 15:47 by Javon Khan MD) Pure hypercholesterolemia Morbid obesity with BMI of 40.0-44.9, adult Mild recurrent major depression Asthma exacerbation Contact with and (suspected) exposure to other viral communicable diseases Hypovitaminosis D Insomnia Depression with anxiety Moderate asthma Essential hypertension Pneumonia Surgical History History of hysterectomy Family History Mother Hypertension Father Hypertension Mental health disorder Other Family history of rheumatoid arthritis Social History Housing: House Alcohol intake: never Patient Tobacco Use Status: Never used Tobacco e-Cigarette/Vaping Use: Never Used Second Hand Smoke Exposure: No service: No Current occupational status: employed Current occupation: [employer], rt hand Current occupational exposures/hazards: No Cognitive needs: No Hearing needs: No Vision needs: Yes (Glasses) Review of Systems Const Denies daytime sleepiness, Denies excessive sweating, Denies fatigue, Denies fever(s), Denies lethargy, Denies malaise, Denies night sweats, Denies snoring and Denies weight loss Eyes Denies blurry vision and Denies itchy eyes ENT Denies nasal congestion, Denies post nasal drip, Denies sinus pain, Denies sinus pressure and Denies other ( Thrush) Card Denies chest pain, Denies pedal edema, Denies dyspnea, Denies orthopnea and Denies paroxysmal nocturnal dyspnea Resp Denies cough, Denies hemoptysis, Denies excessive phlegm production, Denies dyspnea, Denies snoring and Denies wheezing GI Denies abdominal pain and Denies heartburn Musc Denies myalgias, Denies arthralgias and Denies joint swelling Skin/Breast Denies rash Neuro Denies memory loss and Denies seizure-like activity Psych Denies abnormal sleep pattern, Denies anxiety and Denies memory loss Endo Denies excessive sweating, Denies fatigue and Denies heat intolerance Lon/Lymph Denies easy bruising Aller/Immun Denies itchy eyes, Denies seasonal rhinorrhea and Denies wheezing Physical Exam Vital Signs: Last Vital Signs Pulse 89 05/20/23 15:32 BP 132/97 H 05/20/23 15:32 Pulse Ox 99 05/20/23 15:32 Oxygen Delivery Method Room Air 05/20/23 15:32 BMI result Body Mass Index 37.8 Const General: no acute distress and alert Nutritional Appearance: obese Orientation/consciousness: Other orientation findings ( oriented) HEENT Head: Yes atraumatic Eyes General: appearance normal, both eyes and all related structures Sclerae: sclerae normal EOM: EOMs intact bilaterally Neck Neck: Yes supple Lymphatic: no lymphadenopathy noted Resp Effort & Inspection: normal respiratory effort and no use of accessory muscles Auscultation: clear to auscultation bilaterally Cardio Rate: regular rate Rhythm: regular rhythm Heart sounds: no gallops, no murmurs and no rubs Skin General skin exam: other ( warm) Extrem General: No clubbing, No cyanosis and No edema Assessment & Plan Assessment & Plan (1) Severe persistent allergic asthma: Code(s): J45.50 - Severe persistent asthma, uncomplicated Plan: Well controlled on current regimen of Xolair, Advair, and albuterol MDI. Continue current regimen. (2) Environmental allergies: Code(s): Z91.09 - Other allergy status, other than to drugs and biological substances Plan: Well controlled on Xolair. Continue current regimen. Coding Level of Care Code Est Pt Level 4 (50659) Diagnoses Severe persistent allergic asthma J45.50 Environmental allergies Z91.09
[2023-05-20 15:32] VITALS: BP 132/97; PULSE 89; O2SAT 99; BMI 37.8
== END 2023-05-20 15:46 | disposition home or self-care (01) ==
PROVIDERS: PCP Internal Medicine; Visit Provider Internal Medicine Pulmonary Disease
DX: J45.50 Severe persistent asthma, uncomplicated (principal); Z91.09 Other allergy status, other than to drugs and biological substances
CPT/HCPCS: 99214

== ENCOUNTER → 2023-05-20 15:28 | Outpatient (BNVA) | payer OTHER, SELFPAY | PROVIDERS: PCP Internal Medicine; Visit Provider Internal Medicine Pulmonary Disease ==

== ENCOUNTER 2023-05-23 15:23 | Outpatient (REF) | payer OTHER, SELFPAY | END 2023-05-23 15:24 | disposition home or self-care (01) | LOC: HO.MDS 15:23 | PROVIDERS: Visit Provider Internal Medicine Pulmonary Disease | DX: J45.50 Severe persistent asthma, uncomplicated (principal) | CPT/HCPCS: 96372; J2357 ==

== ENCOUNTER 2023-06-06 14:35 | Outpatient (REF) | payer OTHER, SELFPAY | END 2023-06-06 14:36 | disposition home or self-care (01) | LOC: HO.MDS 14:35 | PROVIDERS: Visit Provider Internal Medicine Pulmonary Disease | DX: J45.50 Severe persistent asthma, uncomplicated (principal) | CPT/HCPCS: 96372; J2357 ==

== ENCOUNTER 2023-06-25 15:34 | Outpatient (AMB) | payer OTHER, SELFPAY ==
--- NOTE | 2023-06-25 15:43 | MHC.PC.OV ---
Vital Signs 06/25/23 15:45 Height 4 ft 11 in Weight 190 lb BMI 38.4 BP 130/86 Blood Pressure Location Lt brachial Position Sitting Intake Visit Reasons: PE Intake Note: Patient here for a physical exam [place] [place] [employer] Required: No Accompanied by: Self / Same As Patient Allergies pineapple [PINEAPPLE] Allergy (Severe, Verified 06/25/23 16:01) SWELLING shellfish derived [SHELLFISH DERIVED] Allergy (Severe, Verified 06/25/23 16:01) ANAPHYLAXIS animal dander [PET DANDER] Allergy (Intermediate, Verified 06/25/23 16:01) ITCHING morphine [Morphine] Allergy (Intermediate, Verified 06/25/23 16:01) ITCHING NSAIDS (Non-Steroidal Anti-Inflamma [NSAIDS (NON-STEROIDAL ANTI-INFLAMMA] Allergy (Intermediate, Verified 06/25/23 16:01) BLEEDING sulfamethoxazole [From Bactrim] Allergy (Intermediate, Verified 06/25/23 16:01) RASH trimethoprim [From Bactrim] Allergy (Intermediate, Verified 06/25/23 16:01) RASH Medication List - Last Reconciled 06/25/23 by Yoana Saucedo MD albuterol sulfate 90 mcg/actuation 2 puffs inhalation Q6H PRN atorvastatin 10 mg PO BEDTIME 90 days bupropion HCl 150 mg PO QAM 90 days cholecalciferol (vitamin D3) 50 mcg PO DAILY 90 days diclofenac sodium 1% (Arthritis Pain (diclofenac)) 2 grams topical QID 30 days fluticasone propion-salmeterol 250-50 mcg/dose (Advair Diskus) 1 ea PO BID omalizumab (Xolair) 300 mg (2 mL) subcut Q2W 28 days ondansetron 4 mg PO Q8H PRN sumatriptan succinate 50 mg PO trazodone 100 mg (2 x 50 mg) PO BEDTIME PRN 90 days verapamil ER 240 mg PO DAILY Tobacco use date assessed: 04/29/23 Dental Screening Dental Screen Date: 06/25/23 Did you have a dental visit in the last 12 months?: Yes Did you have a dental problem in the last 6 months where you did not have access to dental care?: No Was dental information given to patient?: Patient has dentist HPI HPI Comments History of Present Illness Details This is a 47-year-old female with mild recurrent major depression that comes for her physical exam. Depression has been stable also she is released that today because she lost her cousin very recently. Last mammogram was 2022 and was normal. She prefers Cologuard rather than colonoscopy. No chest pain or shortness of breath. [facility] Medical History Pure hypercholesterolemia Morbid obesity with BMI of 40.0-44.9, adult Mild recurrent major depression Asthma exacerbation Contact with and (suspected) exposure to other viral communicable diseases Hypovitaminosis D Insomnia Depression with anxiety Moderate asthma Essential hypertension Pneumonia Surgical History History of hysterectomy Family History Mother Hypertension Father Hypertension Mental health disorder Other Family history of rheumatoid arthritis Social History Housing: House Alcohol intake: never Patient Tobacco Use Status: Never used Tobacco e-Cigarette/Vaping Use: Never Used Second Hand Smoke Exposure: No service: No Current occupational status: employed 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 Rohan Gil, Alexandra Cheng, Edd Noonan and colleagues, with an educational michele from [email or web address]. Review of Systems Const All systems reviewed & are unremarkable except as noted in HPI and below Eyes Reports no additional complaints, Denies change in vision and Denies other visual disturbances Card Denies chest pain at rest, Denies chest pain with activity, Denies edema, Denies irregular heart rhythm, Denies claudication, Denies dyspnea, Denies dyspnea on exertion, Denies orthopnea, Denies paroxysmal nocturnal dyspnea and Denies slow heart rate Resp Denies cough, Denies dyspnea and Denies dyspnea on exertion GI Denies abdominal pain, Denies change in bowel habits, Denies excessive flatus, Denies nausea and Denies vomiting Denies urinary incontinence, Denies urinary hesitancy and Denies urinary urgency Musc Denies abnormal gait, Denies atrophy, Denies deformity and Denies limited range of motion Skin/Breast Denies bleeding lesions, Denies changing lesions and Denies rash Neuro Denies abnormal gait and Denies lack of coordination Physical exam (Primary Care) Vital Signs: Last Vital Signs BP 130/86 06/25/23 15:45 BMI result Body Mass Index 38.4 Tobacco/Smoking Status: Tobacco use Status Tobacco use date assessed 04/29/23 06/25/23 15:53 Patient Tobacco Use Status Never used Tobacco 06/25/23 15:53 Tobacco use type 01/08/23 07:28 e-Cigarette/Vaping Use Never Used 06/25/23 15:53 Thrive Assessment: Date of Thrive Assessment Date Thrive assessed 01/08/23 06/25/23 15:53 Const Orientation/consciousness: patient oriented x3 HENMT Head: Yes normal to inspection, Yes normocephalic and Yes atraumatic Ears: external ears normal Eyes General: appearance normal, both eyes and all related structures Eyelids: Yes eyelids normal Conjunctivae: conjunctivae normal Neck Neck: Yes normal visual inspection and Yes supple Resp Effort & Inspection: normal respiratory effort Auscultation: clear to auscultation bilaterally Cardio Jugular venous distension: no JVD Rate: regular rate Rhythm: regular rhythm Heart sounds: S1 normal heart sound present and S2 normal heart sound present GI Inspection: Yes normal to inspection Palpation (GI): Soft to palpation and nontender Auscultation: normal bowel sounds Skin General skin exam: no rashes or lesions noted Neuro General: patient oriented x3 and no focal motor deficits Extrem General: Yes full ROM Psych Appearance: grossly normal Assessment and Plan Assessment & Plan (1) Physical exam: Code(s): Z00.00 - Encounter for general adult medical examination without abnormal findings Plan: Repeat in a year. (2) Mild recurrent major depression: Code(s): F33.0 - Major depressive disorder, recurrent, mild Plan: Continue bupropion. Orders: Orders Lipid Panel Today Z00.00 - Encounter for general adult medical examination without abnormal findings Comprehensive [place]. Panel Fast Today Z00.00 - Encounter for general adult medical examination without abnormal findings Referrals Cologuard Test Z12.11 - Encounter for screening for malignant neoplasm of colon, Z12.12 - Encounter for screening for malignant neoplasm of rectum Coding Level of Care Code Est Pt Prev Care 40-64y(18467) Diagnoses Physical exam Z00.00 Mild recurrent major depression F33.0 Time Spent (min) 33
[2023-06-25 15:45] VITALS: BP 130/86; BMI 38.4
== END 2023-06-25 16:19 | disposition home or self-care (01) ==
PROVIDERS: Visit Provider Internal Medicine
DX: Z00.00 Encounter for general adult medical examination without abnormal findings (principal); F33.0 Major depressive disorder, recurrent, mild
CPT/HCPCS: 99396

== ENCOUNTER 2023-07-04 15:14 | Outpatient (REF) | payer OTHER, SELFPAY | END 2023-07-04 15:15 | disposition home or self-care (01) | LOC: HO.MDS 15:14 | PROVIDERS: PCP Internal Medicine; Visit Provider Internal Medicine Pulmonary Disease | DX: J45.50 Severe persistent asthma, uncomplicated (principal) | CPT/HCPCS: 96372; J2357 ==

== ENCOUNTER 2023-07-18 07:14 | Outpatient (REF) | payer OTHER, SELFPAY | END 2023-07-18 07:15 | disposition home or self-care (01) | LOC: HO.MDS 07:14 | PROVIDERS: Visit Provider Internal Medicine Pulmonary Disease | DX: J45.50 Severe persistent asthma, uncomplicated (principal) | CPT/HCPCS: 96372; J2357 ==

== ENCOUNTER 2023-07-22 08:48 | Emergency (ER) | payer OTHER, SELFPAY ==
--- NOTE | ~2023-07-22 | XR_ITS ---
EXAMINATION: XR CHEST CLINICAL INFORMATION: Cough. COMPARISON: None available. TECHNIQUE: 2 views of the chest were obtained. FINDINGS: No significant abnormality is noted involving the heart, lungs, mediastinum, bony thorax or soft tissues. XR/XR chest 2V IMPRESSION: Unremarkable chest examination.
[2023-07-22 08:50] VITALS: BP 179/116; PULSE 106; RESP 20; TEMP 36.2; O2SAT 97; BMI 38.4
[2023-07-22 09:23] LABS: IDNOW Serial# 08D9AD1C; Strep A Nucleic Acid Negative (Negative)
[2023-07-22 09:59] LABS: Influenza A PCR NEGATIVE (Negative); Influenza B PCR NEGATIVE (Negative); Resp Syncy Virus RNA Qual PCR NEGATIVE (Negative); SARS COV2 PCR INHOUSE NEGATIVE (Negative)
--- NOTE | 2023-07-22 10:00 | PC.NURSE ---
bel garcia remains aware bp elevated but decreasing
--- NOTE | 2023-07-22 10:03 | ED.URI ---
HPI - URI/Sore Throat General Chief Complaint: Upper Respiratory Symptoms Stated Complaint: Cough Sore Throat Chest Tightness Time Seen by Provider: 07/22/23 09:42 Source: patient and RN notes reviewed Mode of arrival: ambulatory Limitations: no limitations History of Present Illness HPI Narrative: This is a 47-year-old female, with a history of asthma, depression, hypertension, presenting to the emergency depart with complaints of sore throat, cough, nasal congestion and subjective fevers and chills x 4 days. Patient reports that she woke up Friday morning and started to have a sore throat. She states that since Friday morning her symptoms have progressed into subjective fevers and chills, nasal congestion, facial pain. She has been using her albuterol inhaler as needed with some relief. She states that around this time every year she gets bronchitis as well as sinus infection. She states that her symptoms feel very similar to these symptoms she has had in the past. She sees Dr. Khan, her straight ruling machine operator, regularly for her asthma. Denies any chest pain, palpitations, current shortness of breath, wheezing, abdominal pain, nausea, vomiting or diarrhea. No urinary or bowel symptoms. She states that her family with sick several weeks ago with COVID and RSV. No other complaints or concerns at this time. MD elicited complaint: fever, cough, sore throat, nasal congestion and sinus pain Onset (ago): day(s) Consistency: constant Severity: moderate Description of mucous: yellow Able to tolerate fluids by mouth: Yes Exacerbating factors: nothing Context: sick contacts Associated symptoms: fever (Subjective), chills, headache, rhinorrhea, nasal congestion and sore throat Treatments prior to arrival: none Related Data Home Medications Medication Instructions Recorded Confirmed albuterol sulfate 90 mcg/actuation 2 puff inhalation Q6H PRN 09/04/21 06/25/23 aerosol inhaler verapamil 120 mg tablet,extended 240 mg PO DAILY 10/16/22 06/25/23 release sumatriptan succinate 50 mg tablet 50 mg PO 03/18/23 06/25/23 Previous Rx's Medication Instructions Recorded omalizumab 150 mg/mL subcutaneous 300 mg (2 mL) subcut Q2W 28 days 05/10/21 syringe (Xolair) #4 mL diclofenac sodium 1 % topical gel 2 g topical QID 30 days #100 grams 10/16/22 (Arthritis Pain (diclofenac)) fluticasone 250 mcg-salmeterol 50 1 ea PO BID #180 caps 03/19/23 mcg/dose blistr powdr for inhalation (Advair Diskus) bupropion HCl 150 mg 24 hr tablet, 150 mg PO QAM 90 days #90 tabs 04/25/23 extended release cholecalciferol (vitamin D3) 50 50 mcg PO DAILY 90 days #90 tabs 04/25/23 mcg (2,000 unit) tablet trazodone 50 mg tablet 100 mg (2 x 50 mg) PO BEDTIME PRN 04/25/23 sleep 90 days #180 tabs ondansetron 4 mg disintegrating 4 mg PO Q8H PRN nausea and 04/29/23 tablet vomiting #7 tabs atorvastatin 10 mg tablet 10 mg PO BEDTIME 90 days #90 tabs 05/02/23 azithromycin 250 mg tablet See Rx Instructions PO .COMPLEX #6 07/22/23 tabs benzonatate 200 mg capsule 200 mg PO TID PRN cough #14 caps 07/22/23 prednisone 20 mg tablet 20 mg PO DAILY 5 days #5 tabs 07/22/23 sodium chloride 0.65 % nasal spray 2 spray intranasal Q4H PRN nasal 07/22/23 aerosol (Saline Nasal Mist) congestion #44 mL Allergies Allergy/AdvReac Type Severity Reaction Status Date / Time pineapple [PINEAPPLE] Allergy Severe SWELLING Verified 07/22/23 08:54 shellfish derived Allergy Severe ANAPHYLAXIS Verified 07/22/23 08:54 [SHELLFISH DERIVED] animal dander [PET DANDER] Allergy Intermediate ITCHING Verified 07/22/23 08:54 morphine [Morphine] Allergy Intermediate ITCHING Verified 07/22/23 08:54 NSAIDS (Non-Steroidal Allergy Intermediate BLEEDING Verified 07/22/23 08:54 Anti-Inflamma [NSAIDS (NON-STEROIDAL ANTI-INFLAMMA] sulfamethoxazole Allergy Intermediate RASH Verified 07/22/23 08:54 [From Bactrim] trimethoprim [From Bactrim] Allergy Intermediate RASH Verified 07/22/23 08:54 Review of Systems Review of Systems: Yes all other systems are reviewed and are negative Constitutional: Constitutional: Reports as per [facility] Past Medical History Attestation statement: The following information was validated with the patient. Medical History Pure hypercholesterolemia Morbid obesity with BMI of 40.0-44.9, adult Mild recurrent major depression Asthma exacerbation Contact with and (suspected) exposure to other viral communicable diseases Hypovitaminosis D Insomnia Depression with anxiety Moderate asthma Essential hypertension Pneumonia Surgical History History of hysterectomy Family History Family History Mother Hypertension Father Hypertension Mental health disorder Other Family history of rheumatoid arthritis Social History Social History Housing: House Alcohol intake: never Patient Tobacco Use Status: Never used Tobacco e-Cigarette/Vaping Use: Never Used Second Hand Smoke Exposure: No Advance Directives: No Advance Directives Information Provided: Yes service: No Current occupational status: employed Current occupation: [employer], rt hand Current occupational exposures/hazards: No Cognitive needs: No Hearing needs: No Vision needs: Yes (Glasses) Physical Exam Vital Signs: Vital Signs: Last Vital Signs Temp 98.3 F 07/22/23 10:06 Pulse 90 07/22/23 10:06 Resp 20 07/22/23 10:06 BP 155/107 H 07/22/23 10:06 Pulse Ox 98 07/22/23 10:06 O2 Del Method Room Air 07/22/23 10:06 BMI result Body Mass Index 38.4 Const: General: cooperative, comfortable and no acute distress Orientation/consciousness: patient oriented x3 Limitations: no limitations HEENT: Other: Tenderness to palpation along the frontal and ethmoid sinuses, no fluctuance or induration. No erythema. Head: Yes normal to inspection, Yes normocephalic and Yes atraumatic Ears: hearing grossly normal bilaterally and TM's normal bilaterally General nose exam: Normal external nose present Face and sinus: Yes normal facial exam Mouth: Normal oral and palatal mucosa present, tongue normal, oropharynx normal and moist mucous membranes Throat: Yes posterior oropharynx normal, Yes tonsils normal and Yes uvula midline Eyes: General: appearance normal, both eyes and all related structures Eyelids: Yes eyelids normal Conjunctivae: conjunctivae normal Sclerae: sclerae normal Pupils: Equal, round and reactive pupils present EOM: EOMs intact bilaterally Neck: Neck: Yes normal visual inspection, Yes full ROM and Yes no lymphadenopathy Lymphatic: no lymphadenopathy noted Chest: Chest palpation & inspection: normal inspection of the chest Resp: Effort & Inspection: normal respiratory effort and able to speak in complete sentences Auscultation: clear to auscultation bilaterally, no crackles, no rales, no rhonchi and no wheezes Cardio: Rate: regular rate Rhythm: regular rhythm Heart sounds: S1 normal heart sound present and S2 normal heart sound present GI: Inspection: Yes normal to inspection Skin: General skin exam: no rashes or lesions noted Trauma: no lacerations or abrasions Wounds: no wounds Neuro: General: patient oriented x3 and moves all extremities Cranial nerves: Yes Equal, round and reactive pupils present Extrem: General: Yes normal to inspection Right upper extremity: normal to inspection Left upper extremity: normal to inspection Right lower extremity: normal to inspection Left lower extremity: normal to inspection Medical Decision Making Medical Decision Making [facility] Narrative: This is a 47-year-old female presenting to the emergency department with complaints of sore throat, cough, chest tightness, subjective fevers and chills. On arrival, patient hypertensive at 179/116 and she is tachycardic at 1:06 a.m., repeat blood pressure improved to 155/107. She has no dizziness, lightheadedness chest pain or shortness breath. No changes in her vision. She is neurologically intact. She has tenderness palpation along her frontal and ethmoid sinuses, with worsening headache with forward lean. Concerning for start of rhinosinusitis. Her lungs are clear to auscultation bilaterally she is nontoxic-appearing. She tested negative for COVID, RSV, flu, strep, chest x-ray unremarkable. Given concerns for sinusitis, will treat with course of antibiotics, prednisone, Tessalon Perles, and saline spray. Patient given return precautions. Patient understands and agrees with plan. Patient stable for discharge. Differential Diagnosis Differential Diagnoses: The differential diagnosis associated with the presentation includes COVID, flu, strep pharyngitis, upper respiratory infection, pneumonia Lab Data [facility] Lab Attestation statement: I reviewed the patient's lab results. Negative Labs: Lab Results 07/22/23 Range/Units 09:07 Influenza Type A (PCR) NEGATIVE (Negative) Influenza Type B (PCR) NEGATIVE (Negative) RSV RNA Qual (PCR) NEGATIVE (Negative) SARS-CoV-2 RNA (RT-PCR) NEGATIVE (Negative) S. pyogenes GrpA ESPINOZA Negative (Negative) Radiology Impression Discussion of test interpretation with radiology: I have reviewed the radiologist's reading. Radiologist Impression: EXAMINATION: XR CHEST CLINICAL INFORMATION: Cough. COMPARISON: None available. TECHNIQUE: 2 views of the chest were obtained. FINDINGS: No significant abnormality is noted involving the heart, lungs, mediastinum, bony thorax or soft tissues. XR/XR chest 2V IMPRESSION: Unremarkable chest examination. Dictated By: Bud Andrew MD Discharge Plan Discharge Clinical Impression: Sinusitis, Acute upper respiratory infection Patient Disposition: Still a Patient Instructions: Sinusitis (ED), Upper Respiratory Infection (ED) Additional Instructions: You presented to the emergency department due to a sinus congestion and a cough. You likely have the start of a sinus infection as well as an upper respiratory infection. It is unclear whether not this is a virus or a bacterial infection. Given your risk factors, I am treating with an antibiotic. You tested negative for COVID, RSV, and flu. Your chest x-ray does not show pneumonia at this time. I am treating with antibiotic, please finish the entire course even if you are feeling better. I am also giving him prednisone, this will help with the inflammation. I am also prescribing you a nasal spray, this will help with your sinus congestion. I am also prescribing you Tessalon, this will help with cough. Please get plenty of fluids get plenty of rest. Please return if you develop any new or worsening symptoms including but not limited to fevers not responding to Tylenol or Motrin, chest pain, shortness of breath. Follow-up with your straight ruling machine operator. Prescriptions: New prednisone 20 mg tablet 20 mg PO DAILY 5 Days Qty: 5 0RF benzonatate 200 mg capsule 200 mg PO TID PRN (Reason: cough) Qty: 14 0RF azithromycin 250 mg tablet See Rx Instructions PO .COMPLEX Qty: 6 0RF Rx Instructions: For 250 mg dose pack: take 500 mg today (day 1), then 250 mg for 4 days (days 2-5) Saline Nasal Mist 0.65 % aerosol,spray 2 spray intranasal Q4H PRN (Reason: nasal congestion) Qty: 44 0RF No Action Xolair 150 mg/mL syringe 300 mg subcut Q2W 28 Days Qty: 4 12RF fluticasone propion-salmeterol [Advair Diskus] 250-50 mcg/dose blister with device 1 ea PO BID Qty: 180 2RF bupropion HCl 150 mg tablet extended release 24 hr 150 mg PO QAM 90 Days Qty: 90 1RF cholecalciferol (vitamin D3) 50 mcg (2,000 unit) tablet 50 mcg PO DAILY 90 Days Qty: 90 1RF trazodone 50 mg tablet 100 mg PO BEDTIME PRN (Reason: sleep) 90 Days Qty: 180 1RF atorvastatin 10 mg tablet 10 mg PO BEDTIME 90 Days Qty: 90 1RF verapamil 120 mg tablet extended release 240 mg PO DAILY diclofenac sodium [Arthritis Pain (diclofenac)] 1 % gel 2 g topical QID 30 Days Qty: 100 1RF Rx Instructions: apply to single elbow, wrist or hand; for hand includes palm/fingers/back of hand albuterol sulfate 90 mcg/actuation HFA aerosol inhaler 2 puff inhalation Q6H PRN ondansetron 4 mg tablet,disintegrating 4 mg PO Q8H PRN (Reason: nausea and vomiting) Qty: 7 0RF sumatriptan succinate 50 mg tablet 50 mg PO
[2023-07-22 10:06] VITALS: BP 155/107; PULSE 90; RESP 20; TEMP 36.8; O2SAT 98
== END 2023-07-22 10:45 | disposition home or self-care (01) ==
PROVIDERS: Emergency Provider Emergency Medicine; PCP Internal Medicine
DX: J06.9 Acute upper respiratory infection, unspecified (principal); J02.9 Acute pharyngitis, unspecified; J32.9 Chronic sinusitis, unspecified; R05.9 Cough, unspecified; R07.89 Other chest pain; I10 Essential (primary) hypertension; Z20.822 Contact with and (suspected) exposure to COVID-19; Z20.828 Contact with and (suspected) exposure to other viral communicable diseases
CPT/HCPCS: 0241U; 71046; 87651; 99282; 99283

== ENCOUNTER 2023-07-24 07:08 | Outpatient (AMB) | payer OTHER, SELFPAY ==
--- NOTE | 2023-07-24 07:33 | MHC.OFFVIS ---
Intake Vital Signs 07/24/23 07:44 Height 4 ft 11 in Weight 179 lb BMI 36.1 BP 127/73 Blood Pressure Location Lt brachial Position Sitting Pulse 89 Intake Visit Reasons: Colonoscopy Screening Intake Note: Patient new consult for 1st pre colonoscopy screening. Dr. Kim and Fidelia Kelly former patient. Patient cc: Constipation, abdominal pain and bloating, fullness and cologuard positive. 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 Accompanied by: Self / Same As Patient Allergies pineapple [PINEAPPLE] Allergy (Severe, Verified 07/24/23 07:32) SWELLING shellfish derived [SHELLFISH DERIVED] Allergy (Severe, Verified 07/24/23 07:32) ANAPHYLAXIS animal dander [PET DANDER] Allergy (Intermediate, Verified 07/24/23 07:32) ITCHING morphine [Morphine] Allergy (Intermediate, Verified 07/24/23 07:32) ITCHING NSAIDS (Non-Steroidal Anti-Inflamma [NSAIDS (NON-STEROIDAL ANTI-INFLAMMA] Allergy (Intermediate, Verified 07/24/23 07:32) BLEEDING sulfamethoxazole [From Bactrim] Allergy (Intermediate, Verified 07/24/23 07:32) RASH trimethoprim [From Bactrim] Allergy (Intermediate, Verified 07/24/23 07:32) RASH Medication List - Last Reconciled 07/24/23 by Fabi Malik PA-C albuterol sulfate 90 mcg/actuation 2 puffs inhalation Q6H PRN atorvastatin 10 mg PO BEDTIME 90 days azithromycin For 250 mg dose pack: take 500 mg today (day 1), then 250 mg for 4 days (days 2-5) benzonatate 200 mg PO TID PRN bupropion HCl 150 mg PO QAM 90 days cholecalciferol (vitamin D3) 50 mcg PO DAILY 90 days fluticasone propion-salmeterol 250-50 mcg/dose (Advair Diskus) 1 ea PO BID omalizumab (Xolair) 300 mg (2 mL) subcut Q2W 28 days prednisone 20 mg PO DAILY 5 days sodium chloride 0.65% (Saline Nasal Mist) 2 sprays intranasal Q4H PRN sumatriptan succinate 50 mg PO trazodone 100 mg (2 x 50 mg) PO BEDTIME PRN 90 days verapamil ER 240 mg PO DAILY HPI HPI Comments History of Present Illness Details A 47 y/o female here after positive cologuard-She says her bowels are not normal- she has constipation- increased fiber-she did notice some improvement -no overt bleeding She has hx gastritis-no HP EGD- 2013 Early satiety with nausea- intermittent diffuse abdominal pain ongoing for couple years. She has some issues- asthma-compliant with treatment P GM- colon ca - age unknown hx HP negative- She has no vomiting, weight loss, hematemesis, hematochezia fever or chills PFSH Medical History Pure hypercholesterolemia Morbid obesity with BMI of 40.0-44.9, adult Mild recurrent major depression Asthma exacerbation Contact with and (suspected) exposure to other viral communicable diseases Hypovitaminosis D Insomnia Depression with anxiety Moderate asthma Essential hypertension Pneumonia Surgical History History of hysterectomy Family History (Updated 07/24/23 @ 08:01 by Fabi Malik PA-C) Mother Hypertension Father Hypertension Mental health disorder Maternal Grandmother Colon cancer Other Family history of rheumatoid arthritis Social History Housing: House Alcohol intake: never Patient Tobacco Use Status: Never used Tobacco e-Cigarette/Vaping Use: Never Used Second Hand Smoke Exposure: No service: No Current occupational status: employed 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[employer], rt hand Current occupational exposures/hazards: No Cognitive needs: No Hearing needs: No Vision needs: Yes (Glasses) Review of Systems Const All systems reviewed & are unremarkable except as noted in HPI and below Card Denies chest pain and Denies dyspnea Resp Denies dyspnea GI Reports bloating, Reports constipation and Reports nausea Physical Exam Vital Signs: Last Vital Signs Pulse 89 07/24/23 07:44 BP 127/73 07/24/23 07:44 BMI result Body Mass Index 36.1 Const General: cooperative, healthy appearing, comfortable and no acute distress Orientation/consciousness: patient oriented x3 Limitations: no limitations Eyes Sclerae: sclerae normal Resp Effort & Inspection: normal respiratory effort and able to speak in complete sentences Auscultation: clear to auscultation bilaterally, no rales, no rhonchi and no wheezes Cardio Rate: regular rate Rhythm: regular rhythm Heart sounds: S1 normal heart sound present and S2 normal heart sound present GI Palpation (GI): Soft to palpation and not firm Auscultation: normal bowel sounds Skin General skin exam: no rashes or lesions noted Neuro General: patient oriented x3 Extrem General: Yes full ROM Psych Appearance: grossly normal and well kempt Mental Status: mental status grossly normal Speech and movement: Normal speech and movement present and Clear speech present Attitude: cooperative Thought process: Normal thought process present Thought content: Normal thought content present Insight: Good insight present (Psych) Judgement: Good judgement present (Psych) Results Reviewed Results Reviewed: 2013-EGD- mild gastritis- no HP Assessment & Plan Assessment & Plan (1) Positive colorectal cancer screening using Cologuard test: Comment: May likely be hemorrhoidal, polyp Code(s): R19.5 - Other fecal abnormalities Plan: Colonoscopy (2) Chronic idiopathic constipation: Comment: Maintain high-fiber diet Consistent bowel regimen Code(s): K59.04 - Chronic idiopathic constipation Plan: consistent bowel regimen (3) Hx of gastritis: Comment: Early satiety, nausea Code(s): Z87.19 - Personal history of other diseases of the digestive system Plan: Will get H pylori stool antigen if positive will treat (4) Early satiety: Comment: History gastritis and hematemesis-EGD 2013 Code(s): R68.81 - Early satiety Plan: EGD Plan EGD/ colon- anesthesia consult- asthma- MG Orders: Orders Comprehensive Met. Panel Today K58.9 - Irritable bowel syndrome without diarrhea Thyroid Stimulating Hormone Today R19.8 - Other specified symptoms and signs involving the digestive system and abdomen EGD/[place] Combo - GI Use Only Today K59.04 - Chronic idiopathic constipation, R19.5 - Other fecal abnormalities, R68.81 - Early satiety, Z87.19 - Personal history of other diseases of the digestive system H pylori Ag Stool Today A04.8 - Other specified bacterial intestinal infections Complete Blood Count Auto Diff Today K59.04 - Chronic idiopathic constipation, R19.5 - Other fecal abnormalities Lipid Panel Today E78.00 - Pure hypercholesterolemia, unspecified, K59.04 - Chronic idiopathic constipation, R19.5 - Other fecal abnormalities Medications: New docusate sodium (Colace) 200 mg (2 x 100 mg) PO BEDTIME 60 caps 5RF polyethylene glycol 3350 (Miralax) 17 grams PO DAILY 510 grams 6RF bisacodyl (Dulcolax (bisacodyl)) 10 mg [place] DAILY PRN 20 ea 0RF constipation bisacodyl (Dulcolax (bisacodyl)) Day before procedure, prep day Take 4 tablets by mouth upon awakening followed by large glass of water 20 mg (4 x 5 mg) PO ONCE 1 day 4 tabs 0RF colonoscopy prep Z12.11 - Encounter for screening for malignant neoplasm of colon polyethylene glycol 3350 (Miralax) Take as directed by mouth the day before your procedure. 238 grams PO ONCE 1 day PRN 238 grams 0RF laxative effect calcium polycarbophil (Fiber Laxative (calcium polycarbophil)) 1,250 mg (2 x 625 mg) PO DAILY 30 days 60 tabs 3RF Patient Instructions: Very pleasant 47-year-old female chronic constipation, abdominal bloating her early satiety and nausea she will call for results H.P, if positive will treat Schedule EGD colonoscopy Discussed procedure, rare risk need for escorted due to anesthesia MiraLax Gatorade split prep, reviewed literature given Maintain high-fiber diet Consistent bowel regimen Encouraged to call questions or concerns Coding Level of Care Code New Pt Level 3 (59572) Diagnoses Positive colorectal cancer screening using Cologuard test R19.5 Chronic idiopathic constipation K59.04 Hx of gastritis Z87.19 Early satiety R68.81 Time Spent (min) 30
[2023-07-24 07:44] VITALS: BP 127/73; PULSE 89; BMI 36.1
== END 2023-07-24 08:18 | disposition home or self-care (01) ==
PROVIDERS: PCP Internal Medicine; Visit Provider Physician Assistant
DX: R19.5 Other fecal abnormalities (principal); K59.04 Chronic idiopathic constipation; Z87.19 Personal history of other diseases of the digestive system; R68.81 Early satiety
CPT/HCPCS: 99203

== ENCOUNTER → 2023-07-24 07:08 | Outpatient (BNVA) | payer OTHER, SELFPAY | PROVIDERS: PCP Internal Medicine; Visit Provider Physician Assistant ==

== ENCOUNTER 2023-07-24 08:34 | Outpatient (REF) | payer OTHER, SELFPAY ==
[2023-07-24 10:33] LABS: MANUAL DIFF FLAG NO
[2023-07-24 10:35] LABS: Basophils Percent Auto 0.4 % (0-2); Eosinophils Percent Auto 0.5 % (0-4); Hematocrit 40.1 % (37.0-47.0); Imm Gran Abs Auto 0.01 X10*3/uL (0.00-0.03); Imm Gran Pct Auto 0.1 % (0.0-0.4); Lymphocytes Absolute Auto 2.4 X10*3/uL (1.2-4.9); Lymphocytes Percent Auto 29.4 % (20-40); Mean Corpuscular HGB Conc 34.9 g/dl (31.0-35.0); Mean Corpuscular Hemoglobin 33.4 pg (27.0-33.0); Mean Corpuscular Volume 95.7 fL (80.0-98.0); Mean Platelet Volume 9.5 fL (9.4-12.3); Monocytes Absolute Auto 0.6 X10*3/uL (0.1-1.2); Monocytes Percent Auto 7.7 % (2-11); Neutrophils Percent Auto 61.9 % (45-73); Platelet Count 380 X10*3/uL (160-400); Red Blood Count 4.19 X10*6/uL (4.20-5.50); Red Cell Distribution Width 11.6 % (11.0-16.0)
[2023-07-24 11:13] LABS: Alanine Aminotransferase 23 U/L (0-31); Albumin Level 4.2 g/dL (3.5-5.0); Alkaline Phosphatase 72 U/L (39-117); Anion Gap 15 (12-20); Aspartate Amino Transferase 14 U/L (5-31); Bilirubin Total 0.6 mg/dL (0.0-1.0); Blood Urea Nitrogen 13 mg/dL (9-16); Calcium 9.2 mg/dL (8.4-10.2); Carbon Dioxide 24 mmol/L (22-29); Chloride 105 mmol/L (96-108); Cholesterol 138 mg/dL (<200); Estimated Glomerular Filt Rate > 60; Glucose Random 101 mg/dL (60-115); HDL Cholesterol 46 mg/dL (>40); LDL Cholesterol Calculated 75 mg/dL (<100); Potassium 3.9 mmol/L (3.3-5.1); Sodium 140 mmol/L (135-145); Total Protein 7.2 g/dL (6.5-8.0); Triglycerides 88 mg/dL (<150)
[2023-07-24 11:19] LABS: Thyroid Stimulating Hormone 1.32 uIU/mL (0.32-4.0)
== END 2023-07-24 08:35 | disposition home or self-care (01) ==
LOC: HO.10HDL 08:34
PROVIDERS: Visit Provider Physician Assistant
DX: K59.04 Chronic idiopathic constipation (principal); R19.5 Other fecal abnormalities; K58.9 Irritable bowel syndrome, unspecified; R19.8 Other specified symptoms and signs involving the digestive system and abdomen; E78.00 Pure hypercholesterolemia, unspecified
CPT/HCPCS: 36415; 80053; 80061; 84443; 85025

== ENCOUNTER 2023-08-01 07:22 | Outpatient (REF) | payer OTHER, SELFPAY | END 2023-08-01 07:23 | disposition home or self-care (01) | LOC: HO.MDS 07:22 | PROVIDERS: Visit Provider Internal Medicine Pulmonary Disease | DX: J45.50 Severe persistent asthma, uncomplicated (principal) | CPT/HCPCS: 96372; J2357 ==

== ENCOUNTER 2023-08-15 07:20 | Outpatient (REF) | payer OTHER, SELFPAY | END 2023-08-15 07:21 | disposition home or self-care (01) | LOC: HO.MDS 07:20 | PROVIDERS: Visit Provider Internal Medicine Pulmonary Disease | DX: J45.50 Severe persistent asthma, uncomplicated (principal) | CPT/HCPCS: 96372; J2357 ==

== ENCOUNTER 2023-08-20 07:29 | Outpatient (REF) | payer OTHER, SELFPAY | END 2023-08-20 07:30 | disposition home or self-care (01) | LOC: HO.10HDLNP 07:29 | PROVIDERS: Visit Provider Physician Assistant | DX: A04.8 Other specified bacterial intestinal infections (principal) | CPT/HCPCS: 87338 ==

== ENCOUNTER 2023-08-29 15:26 | Outpatient (REF) | payer OTHER, SELFPAY | END 2023-08-29 15:27 | disposition home or self-care (01) | LOC: HO.MDS 15:26 | PROVIDERS: Visit Provider Internal Medicine Pulmonary Disease | DX: J45.50 Severe persistent asthma, uncomplicated (principal) | CPT/HCPCS: 96372; J2357 ==

== ENCOUNTER 2023-09-10 11:30 | Day surgery (SDC) | payer OTHER, SELFPAY ==
[2023-09-08 13:46] VITALS: BMI 36.1
--- NOTE | 2023-09-09 10:52 | P.CONAN_ITS ---
Documented by User: Linda Ram NP 09/09/23 10:53 HPI - Anesthesia Eval Consult details Narrative: 47yo F for Upper Endoscopy and Colonoscopy PMFSH Active Problems Active Problems: All Active Problems (Updated 07/24/23 @ 12:18 by Fabi Malik PA-C) Hx of gastritis (Acute) Early satiety (Acute) Chronic idiopathic constipation (Acute) Positive colorectal cancer screening using Cologuard test (Acute) Nausea (Acute) Fatigue (Acute) Cellulitis of left axilla (Acute) Cellulitis of left upper arm (Acute) Patellofemoral arthritis of left knee (Acute) Chondrocalcinosis of left knee (Acute) Fall from slipping on ice (Acute ~09/27/22) Fibromyalgia, primary (Acute) Right tennis elbow (Acute) Physical exam (Acute) Acute sinusitis (Acute) Spasm of cervical paraspinous muscle (Acute) Yeast cystitis (Acute) Dysuria (Acute) Urinary tract infection (Acute) Upper respiratory tract infection (Acute) Environmental allergies (Acute) Cough variant asthma (Acute) Severe persistent allergic asthma (Acute) Pure hypercholesterolemia (Acute) Mild recurrent major depression (Acute) Asthma exacerbation (Acute) Contact with and (suspected) exposure to other viral communicable diseases (Acute) Hypovitaminosis D (Acute) Insomnia (Acute) Depression with anxiety (Acute) Moderate asthma (Acute) Essential hypertension (Acute) Past Medical History Medical History (Updated 09/10/23 @ 13:37 by Nelly Fields MD) Migraine Pure hypercholesterolemia Morbid obesity with BMI of 40.0-44.9, adult Mild recurrent major depression Asthma exacerbation Contact with and (suspected) exposure to other viral communicable diseases Hypovitaminosis D Insomnia Depression with anxiety Moderate asthma Essential hypertension Pneumonia Family History Family History Mother Hypertension Father Hypertension Mental health disorder Maternal Grandmother Colon cancer Other Family history of rheumatoid arthritis Surgical History Surgical History History of endometrial ablation History of esophagogastroduodenoscopy (EGD) History of hysterectomy Social History Social History Housing: House Alcohol intake: never Patient Tobacco Use Status: Never used Tobacco e-Cigarette/Vaping Use: Never Used Second Hand Smoke Exposure: No Have you been hit, kicked, punched, or otherwise hurt by someone within the past year? 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[employer], rt hand Current occupational exposures/hazards: No Cognitive needs: No Hearing needs: No Vision needs: Yes (Glasses) Meds Allergies Allergy/AdvReac Type Severity Reaction Status Date / Time pineapple [PINEAPPLE] Allergy Severe SWELLING Verified 07/24/23 07:32 shellfish derived Allergy Severe ANAPHYLAXIS Verified 07/24/23 07:32 [SHELLFISH DERIVED] animal dander [PET DANDER] Allergy Intermediate ITCHING Verified 07/24/23 07:32 morphine [Morphine] Allergy Intermediate ITCHING Verified 07/24/23 07:32 NSAIDS (Non-Steroidal Allergy Intermediate BLEEDING Verified 07/24/23 07:32 Anti-Inflamma [NSAIDS (NON-STEROIDAL ANTI-INFLAMMA] sulfamethoxazole Allergy Intermediate RASH Verified 07/24/23 07:32 [From Bactrim] trimethoprim [From Bactrim] Allergy Intermediate RASH Verified 07/24/23 07:32 Home Medications Medication Instructions Recorded Confirmed Last Taken Type albuterol sulfate 90 mcg/actuation 2 puff inhalation Q6H PRN 09/04/21 09/08/23 Unknown History aerosol inhaler Shortness Of Breath Or Wheezing verapamil 120 mg tablet,extended 240 mg PO DAILY 10/16/22 09/08/23 Unknown History release sumatriptan succinate 50 mg tablet 50 mg PO DAILY PRN Migraine 03/18/23 09/08/23 Unknown History Headache Exam Height,Weight and Vital Signs: Height 4 ft 11 in Weight 81.193 kg Pertinent Lab Results Pertinent Lab Results: Laboratory Tests 07/24/23 08:40 WBC 8.0 Hgb 14.0 Hct 40.1 Plt Count 380 Sodium 140 Potassium 3.9 Chloride 105 Carbon Dioxide 24 BUN 13 Creatinine 0.79 Assessment and Plan Assessment Anesthesia Assessment: Chart Reviewed Documented by User: Nelly Fields MD 09/10/23 13:39 [facility] Active Problems Active Problems: All Active Problems (Updated 09/10/23 @ 13:22 y Nelly Fields MD) Hx of gastritis (Acute) Early satiety (Acute) Chronic idiopathic constipation (Acute) Positive colorectal cancer screening using Cologuard test (Acute) Nausea (Acute) Fatigue (Acute) Cellulitis of left axilla (Acute) Cellulitis of left upper arm (Acute) Patellofemoral arthritis of left knee (Acute) Chondrocalcinosis of left knee (Acute) Fall from slipping on ice (Acute ~09/27/22) Fibromyalgia, primary (Acute) Right tennis elbow (Acute) Physical exam (Acute) Acute sinusitis (Acute) Spasm of cervical paraspinous muscle (Acute) Yeast cystitis (Acute) Dysuria (Acute) Urinary tract infection (Acute) Environmental allergies (Acute) Cough variant asthma (Acute) Severe persistent allergic asthma (Acute) Pure hypercholesterolemia (Acute) Mild recurrent major depression (Acute) Hypovitaminosis D (Acute) Insomnia (Acute) Depression with anxiety (Acute) Moderate asthma (Acute)- controlled with xolair injections. Not needed inhaler Essential hypertension (Acute) Denies JUSTO - sleep study negative. Snoring but no JUSTO Past Medical History Medical History (Updated 09/10/23 @ 13:37 by Nelly Fields MD) Migraine Pure hypercholesterolemia Morbid obesity with BMI of 40.0-44.9, adult Mild recurrent major depression Asthma exacerbation Contact with and (suspected) exposure to other viral communicable diseases Hypovitaminosis D Insomnia Depression with anxiety Moderate asthma Essential hypertension Pneumonia Family History Family History Mother Hypertension Father Hypertension Mental health disorder Maternal Grandmother Colon cancer Other Family history of rheumatoid arthritis Family history of problems with anesthesia: No Surgical History Surgical History History of endometrial ablation History of esophagogastroduodenoscopy (EGD) History of hysterectomy History of Problems with Anesthesia: Yes (Slow awakening, PONV with GA) Social History Social History Housing: House Alcohol intake: never Patient Tobacco Use Status: Never used Tobacco e-Cigarette/Vaping Use: Never Used Second Hand Smoke Exposure: No Have you been hit, kicked, punched, or otherwise hurt by someone within the past year? 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[employer], rt hand Current occupational exposures/hazards: No Cognitive needs: No Hearing needs: No Vision needs: Yes (Glasses) Meds Allergies Allergy/AdvReac Type Severity Reaction Status Date / Time pineapple [PINEAPPLE] Allergy Severe SWELLING Verified 07/24/23 07:32 shellfish derived Allergy Severe ANAPHYLAXIS Verified 07/24/23 07:32 [SHELLFISH DERIVED] animal dander [PET DANDER] Allergy Intermediate ITCHING Verified 07/24/23 07:32 morphine [Morphine] Allergy Intermediate ITCHING Verified 07/24/23 07:32 NSAIDS (Non-Steroidal Allergy Intermediate BLEEDING Verified 07/24/23 07:32 Anti-Inflamma [NSAIDS (NON-STEROIDAL ANTI-INFLAMMA] sulfamethoxazole Allergy Intermediate RASH Verified 07/24/23 07:32 [From Bactrim] trimethoprim [From Bactrim] Allergy Intermediate RASH Verified 07/24/23 07:32 Home Medications Medication Instructions Recorded Confirmed Last Taken Type albuterol sulfate 90 mcg/actuation 2 puff inhalation Q6H PRN 09/04/21 09/08/23 Unknown History aerosol inhaler Shortness Of Breath Or Wheezing verapamil 120 mg tablet,extended 240 mg PO DAILY 10/16/22 09/08/23 Unknown History release sumatriptan succinate 50 mg tablet 50 mg PO DAILY PRN Migraine 03/18/23 09/08/23 Unknown History Headache Exam Height,Weight and Vital Signs: Height 4 ft 11 in Weight 81.193 kg Vital Signs Temp Pulse Resp BP Pulse Ox O2 Del Method 09/10/23 12:40 98.2 F 89 18 143/97 H 98 Room Air Airway Mallampati Class: III TM Dist: >3cm Neck ROM: Full Loose/Missing/Broken Teeth: Yes (Molars extracted. Denies broken or loose teeth) Heart: RRR Lungs: CTAB Assessment and Plan Assessment Anesthesia Assessment: Anesthesia Plan Discussed and Chart Reviewed Final Anesthetic Review Family History of Problems with Anesthesia: No History of Problems with Anesthesia: Yes (Slow awakening, PONV with GA) NPO: Yes ASA Class: III Final Preanesthetic Review: No Changes in Pt Med Stat, Meds/Allgs Chart Reviewed, Consent Obtained/Reviewed and Anes Risks/Benef Reviewed Patient Risk: Intermediate Procedure Risk: Low Assessment/Block/Sedation in SS: Assess/Block/Sedation-SS Anesthetic Plan Anesthetic Plan: TIVA Disposition: Standard PACU
[2023-09-10 12:40] VITALS: BP 143/97; PULSE 89; RESP 18; TEMP 36.8; O2SAT 98; BMI 36.8
[2023-09-10] MEDS: Lactated Ringers 1,000 ML 100 ML IVCONT (12:44)
--- NOTE | 2023-09-10 12:45 | MHC.SHP ---
Pre-Procedural Eval Section A - 24 Hr Update-Section A only Date of Service: 09/10/23 Section B - Complete if H&P > 30 days Chief Complaint: Chronic idiopathic constipation Details of Present Illness: FH of CRC and colonic polyps Relevant Family History (Specify if Yes): Yes Relevant Social History: None Present Medications: see Short Stay Collaborative assessment Medical History: Significant History (Pure hypercholesterolemia obesity, adult Mild recurrent major depression Asthma exacerbation Contact with and (suspected) exposure to other viral communicable diseases Hypovitaminosis D Insomnia Depression with anxiety Moderate asthma Essential hypertension Pneumonia) History of Previous Operations: Relevant previous surgery/procedure and date(s) (y of endometrial ablation History of esophagogastroduodenoscopy (EGD) History of hysterectomy) Allergies: Allergies Allergy/AdvReac Type Severity Reaction Status Date / Time pineapple [PINEAPPLE] Allergy Severe SWELLING Verified 07/24/23 07:32 shellfish derived Allergy Severe ANAPHYLAXIS Verified 07/24/23 07:32 [SHELLFISH DERIVED] animal dander [PET DANDER] Allergy Intermediate ITCHING Verified 07/24/23 07:32 morphine [Morphine] Allergy Intermediate ITCHING Verified 07/24/23 07:32 NSAIDS (Non-Steroidal Allergy Intermediate BLEEDING Verified 07/24/23 07:32 Anti-Inflamma [NSAIDS (NON-STEROIDAL ANTI-INFLAMMA] sulfamethoxazole Allergy Intermediate RASH Verified 07/24/23 07:32 [From Bactrim] trimethoprim [From Bactrim] Allergy Intermediate RASH Verified 07/24/23 07:32 Review of Systems Sugical H&P ROS: Negative: Constitution, Cardiovascular, Respiratory, Neurological, Psychiatric, Hem-Onc, Allergic/Immunologic, Gastrointestinal, Genitourinary, Musculoskeletal, Integumentary, Endocrine and Eyes/Ears/Nose/Throat Exam Surgical H&P Exam: Normal: HEENT, Normal: Heart, Normal: Lungs, Normal: Extremities, Normal: Abdomen, Normal: Skin and Normal: Neurological Plan Diagnosis/Plan: Unchanged I have reviewed the history and physical and performed a pertinent physical examination on my patient. No changes have occurred unless specified. Time Spent With Patient Time: Total time managing care of this patient today ____ minutes.
--- NOTE | 2023-09-10 13:41 | W.PM.OPN ---
Operative Note Operative Note Date of Service: 09/10/23 Narrative: Operative Information Procedure Description: EGD, Colonoscopy Indication: FH of CRC and polyps, pos cologuard, satiety Anesthesia: MAC FLEXIBLE TRANSORAL UPPER GASTROINTESTINAL ENDOSCOPY AND COLONOSCOPY PROCEDURE NOTE UPPER ENDOSCOPY Consent: Indications for the procedure and potential complications of bleeding, perforation, reaction to medications and missed diagnosis were discussed with the patient and informed consent was obtained. Instrument: Olympus GIF H 190 J mid size upper endoscope Monitoring: Vital signs and clinical assessment, continuous EKG monitoring, Pulse oximetry, Carbon Dioxide monitoring and blood pressure monitoring were done throughout the procedure. Procedure: The patient was placed in the left lateral decubitis position and pre-procedure medications were administered and a bite block was placed. The endoscope was inserted into the mouth and advanced under direct vision to the third part of duodenum. A careful inspection was made as the upper endoscope was withdrawn including a retroflexed examination of the proximal stomach; Findings and interventions are described below. Findings: Larynx:normal Esophagus: GE junction at 38 cm, diaphragm hiatus at 38 cm, bogginess and erythema, bx taken from GEJ and distal esophagus Stomach: Patchy erythema sonny in fundus. Biopsies were obtained. Grade 2 flap valve on retroflexed examination of the cardia. Duodenum: Normal bulb and descending duodenum, bx taken Intervention: Biopsies as noted above COLONOSCOPY Instrument: Olympus variable stiffness pediatric scope 190L Colonoscopy Monitoring: Vital signs and clinical assessment, continuous EKG monitoring, Pulse oximetry, Carbon Dioxide monitoring and blood pressure monitoring were done throughout the procedure. Colon withdrawal time was 9 minutes. Procedure: The patient was placed in the left lateral decubitis position and pre-procedure medications were administered. After a digital rectal examination of the ano-rectum, the video colonoscope was inserted into the rectum and advanced through the colon to the cecum/TI. The colonoscope was slowly withdrawn in a retrograde panoramic fashion and the colon mucosa was carefully examined including a retroflexed view of the rectum. Findings and interventions are described below. Procedure Difficulty:easy Findings: Terminal Ileum-normal, bx taken Cecum: granular mucosa bx taken Ascending Colon: normal Transverse Colon -normal Descending Colon:normal Sigmoid Colon: normal Rectum: Retroflexion with small internal hemorrhoids, grade I Anorectum - normal Colon preparation: [place] Bowel Preparation Scale Right colon; 1-2 Transverse colon: 2 Left colon; 2 (0 = Unprepared colon segment with mucosa not seen due to solid stool that cannot be cleared. 1 = Portion of mucosa of the colon segment seen, but other areas of the colon segment not well seen due to staining, residual stool and/or opaque liquid. 2 = Minor amount of residual staining, small fragments of stool and/or opaque liquid, but mucosa of colon segment seen well. 3 = Entire mucosa of colon segment seen well with no residual staining, small fragments of stool or opaque liquid) Impression and Post Procedure Diagnosis: Endoscopy Findings: gastritis esophagitis Colonoscopy Findings: internal hemorrhoids non specific mucosal changes cecum Plan: Await Pathology results Repeat Colonoscopy in 3 years due to fair prep and FH of CRC or earlier if clinically indicated High fiber diet leaflet avoid straining at stool, epsom salts and sitz bath, anusol supps or cream if h pylori pos treat-otherwise trial of PPI Above findings were reviewed with the patient and relevant handouts were provided if indicated.
[2023-09-10 14:32] VITALS: BP 124/82; PULSE 93; RESP 16; TEMP 36.1; O2SAT 97
[2023-09-10 14:47] VITALS: BP 139/93; PULSE 81; RESP 16; O2SAT 99
[2023-09-10 15:01] VITALS: BP 139/93; PULSE 86; RESP 16; TEMP 36.2; O2SAT 98
== END 2023-09-10 15:17 | disposition home or self-care (01) ==
PROVIDERS: PCP Internal Medicine; Visit Provider Internal Medicine Gastroenterology
PROC: (CPT 43239; principal; 2023-09-10 14:40)
DX: K52.9 Noninfective gastroenteritis and colitis, unspecified (principal); K29.60 Other gastritis without bleeding; K20.80 Other esophagitis without bleeding; K22.89 Other specified disease of esophagus; K64.0 First degree hemorrhoids; R19.5 Other fecal abnormalities; Z80.0 Family history of malignant neoplasm of digestive organs; E78.00 Pure hypercholesterolemia, unspecified; I10 Essential (primary) hypertension; R68.81 Early satiety; K59.04 Chronic idiopathic constipation; Z79.899 Other long term (current) drug therapy; Z79.02 Long term (current) use of antithrombotics/antiplatelets
CPT/HCPCS: 43239; 45380; 88305; 88313; 88342; J1596

== ENCOUNTER → 2023-09-10 11:30 | Outpatient (BNV) | payer OTHER, SELFPAY | PROVIDERS: PCP Internal Medicine; Visit Provider Internal Medicine Gastroenterology | DX: Z12.11 Encounter for screening for malignant neoplasm of colon (principal); Z80.0 Family history of malignant neoplasm of digestive organs; R19.5 Other fecal abnormalities; R68.81 Early satiety; K64.0 First degree hemorrhoids; K63.89 Other specified diseases of intestine | CPT/HCPCS: 43239; 45380 ==

== ENCOUNTER 2023-09-12 15:27 | Outpatient (REF) | payer OTHER, SELFPAY | END 2023-09-12 15:28 | disposition home or self-care (01) | LOC: HO.MDS 15:27 | PROVIDERS: Visit Provider Internal Medicine Pulmonary Disease | DX: J45.50 Severe persistent asthma, uncomplicated (principal) | CPT/HCPCS: 96372; J2357 ==

== ENCOUNTER 2023-09-24 09:01 | Outpatient (AMB) | payer OTHER, SELFPAY ==
--- NOTE | 2023-09-24 09:09 | A.OFFVIS_ITS ---
Intake Vital Signs 09/24/23 09:34 Height 4 ft 11 in Weight 190 lb 0.615 oz BMI 38.4 BP 166/87 H Blood Pressure Location Lt brachial Position Sitting Pulse 84 Intake Visit Reasons: S/p egd/colon Christin Intake Note: Patient is seen in office for post op assessment post EGD/Colonoscopy by Dr Waller. 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 Accompanied by: Self / Same As Patient Allergies pineapple [PINEAPPLE] Allergy (Severe, Verified 09/24/23 09:14) SWELLING shellfish derived [SHELLFISH DERIVED] Allergy (Severe, Verified 09/24/23 09:14) ANAPHYLAXIS animal dander [PET DANDER] Allergy (Intermediate, Verified 09/24/23 09:14) ITCHING morphine [Morphine] Allergy (Intermediate, Verified 09/24/23 09:14) ITCHING NSAIDS (Non-Steroidal Anti-Inflamma [NSAIDS (NON-STEROIDAL ANTI-INFLAMMA] Allergy (Intermediate, Verified 09/24/23 09:14) BLEEDING sulfamethoxazole [From Bactrim] Allergy (Intermediate, Verified 09/24/23 09:14) RASH trimethoprim [From Bactrim] Allergy (Intermediate, Verified 09/24/23 09:14) RASH Medication List - Last Reconciled 09/24/23 by Fabi Malik PA-C albuterol sulfate 90 mcg/actuation 2 puffs inhalation Q6H PRN atorvastatin 10 mg PO BEDTIME 90 days benzonatate 200 mg PO TID PRN bisacodyl (Dulcolax (bisacodyl)) 10 mg [place] DAILY PRN bupropion HCl 150 mg PO QAM 90 days calcium polycarbophil (Fiber Laxative (calcium polycarbophil)) 1,250 mg (2 x 625 mg) PO DAILY 30 days cholecalciferol (vitamin D3) 50 mcg PO DAILY 90 days docusate sodium (Colace) 200 mg (2 x 100 mg) PO BEDTIME fluticasone propion-salmeterol 250-50 mcg/dose (Advair Diskus) 1 ea PO BID omalizumab (Xolair) 300 mg (2 mL) subcut Q2W 28 days polyethylene glycol 3350 (Miralax) 17 grams PO DAILY sodium chloride 0.65% (Saline Nasal Mist) 2 sprays intranasal Q4H PRN sumatriptan succinate 50 mg PO DAILY PRN trazodone 100 mg (2 x 50 mg) PO BEDTIME PRN 90 days verapamil ER 240 mg PO DAILY HPI HPI Comments History of Present Illness Details A 47 y/o female f/u after EGD/ colon-for acid reflux, rectal bleeding, constipation and positive Cologuard Famotidine with fairly good response taking p.r.n. Reviewed procedure report, pathology as well as recommendation Dietary modifications, consistent bowel regimen beneficial [facility] Medical History (Updated 09/25/23 @ 09:48 by Fabi Malik PA-C) Migraine Pure hypercholesterolemia Morbid obesity with BMI of 40.0-44.9, adult Mild recurrent major depression Asthma exacerbation Contact with and (suspected) exposure to other viral communicable diseases Hypovitaminosis D Insomnia Depression with anxiety Moderate asthma Essential hypertension Pneumonia Surgical History History of endometrial ablation History of esophagogastroduodenoscopy (EGD) History of hysterectomy Family History Mother Hypertension Father Hypertension Mental health disorder Maternal Grandmother Colon cancer Other Family history of rheumatoid arthritis Social History Housing: House Alcohol intake: never Patient Tobacco Use Status: Never used Tobacco e-Cigarette/Vaping Use: Never Used Second Hand Smoke Exposure: No service: No Current occupational status: employed Current [place]: [employer] [place] Current occupational exposures/hazards: No Cognitive needs: No Hearing needs: No Vision needs: Yes (Glasses) Physical Exam Vital Signs: Last Vital Signs Pulse 84 09/24/23 09:34 BP 166/87 H 09/24/23 09:34 BMI result Body Mass Index 38.4 Results Reviewed Results Reviewed: Endoscopy Findings: gastritis esophagitis Colonoscopy Findings: internal hemorrhoids non specific mucosal changes cecum Plan: Await Pathology results Repeat Colonoscopy in 3 years due to fair prep and FH of CRC or earlier if clinically indicated High fiber diet leaflet avoid straining at stool, epsom salts and sitz bath, anusol supps or cream if h pylori pos treat-otherwise trial of PPI Age/Sex: 47/F Attending: Shelton Waller MD : 1975 Submitted by: Shelton Waller MD Copies to: Yoana Howe MD MR #: [id number] Status: [facility] Collected: 09/10/23 Location: [facility] Received: 09/11/23 Diagnosis A. Cecum, biopsy: Colonic mucosa with lymphoid aggregates and no specific change. B. Terminal ileum, biopsy: Ileal mucosa with no specific change. C. Duodenum, biopsy: Duodenal mucosa with predominantly preserved villi and mild changes consistent with chronic/non-specific duodenitis. D. Stomach, biopsy: Gastric body mucosa with lamina propria hemorrhage and focal minimal chronic inactive inflammation; negative for H pylori, intestinal metaplasia and dysplasia. E. Gastroesophageal junction, biopsy: Columnar mucosa with minimal chronic inactive inflammation; negative for intestinal metaplasia and dysplasia; no squamous component present. F. Esophagus, distal, biopsy: Squamous mucosa with no specific change; no columnar component present. Clinical History Pre-Op Dx: Chronic idiopathic constipation, family history of colon cancer, positive Cologuard test Post-Op Dx: Internal hemorrhoids, non specific colitis, gastritis, esophagitis Microscopic Description Microscopic sections reviewed. Immunostain for H. pylori on D is negative. AB/PAS stain on C is positive for focal evidence of chronic injury. AB/PAS stains on D and E are negative for intestinal metaplasia. Controls stain appropriately. Material Received A. Cecum bx's B. TI bx's C. Duodenum bx's D. Stomach bx's E. GE junction bx's F. Distal esophagus bx's Gross Description A. Received in formalin are 3 gar 1 mm soft tissue fragments, totally submitted in cassette A1. B. Received in formalin are 4 gar 1-2 mm soft tissue fragments, totally submitted in cassette B1. C. Received in formalin are 4 gar 1-3 mm soft tissue fragments, totally submitted in cassette C1. Patient: Tiesha Patel Age/Sex: 47/F MR#: [id number] Page 1 of 2 Assessment & Plan Assessment & Plan (1) Hx of gastritis: Comment: Very pleasant Code(s): Z87.19 - Personal history of other diseases of the digestive system Plan: Dietary modification (2) Chronic idiopathic constipation: Comment: Maintain high-fiber diet Consistent bowel regimen Code(s): K59.04 - Chronic idiopathic constipation Plan: High-fiber diet Consistent bowel regimen (3) Bloating: Code(s): R14.0 - Abdominal distension (gaseous) Plan: Low FODmap (4) Hemorrhoids: Code(s): K64.9 - Unspecified hemorrhoids Plan: High-fiber diet Plan 3 year repeat colon Low Fodmap famotodine 40 Medications: New famotidine 40 mg PO DAILY 30 tabs 5RF Patient Instructions: 47-year-old female follows up after recent EGD colonoscopy for multiple GI complaints. Symptoms seem to somewhat Repeat asymptomatic colonoscopy 3 years Reviewed procedure report, recommendations and pathology Review dietary modifications to include consider low FODMAP diet Reflux precautions, famotidine 40 mg daily Maintain consistent bowel regimen High-fiber diet Avoid straining Encouraged to call questions or concerns Coding Level of Care Code Est Pt Level 3 (40489) Diagnoses Hx of gastritis Z87.19 Chronic idiopathic constipation K59.04 Bloating R14.0 Hemorrhoids K64.9 Time Spent (min) 25
[2023-09-24 09:34] VITALS: BP 166/87; PULSE 84; BMI 38.4
== END 2023-09-24 10:43 | disposition home or self-care (01) ==
PROVIDERS: PCP Internal Medicine; Visit Provider Physician Assistant
DX: Z87.19 Personal history of other diseases of the digestive system (principal); K59.04 Chronic idiopathic constipation; R14.0 Abdominal distension (gaseous); K64.9 Unspecified hemorrhoids
CPT/HCPCS: 99213

== ENCOUNTER → 2023-09-24 09:01 | Outpatient (BNVA) | payer OTHER, SELFPAY | PROVIDERS: PCP Internal Medicine; Visit Provider Physician Assistant ==

== ENCOUNTER 2023-09-26 15:31 | Outpatient (REF) | payer OTHER, SELFPAY ==
[2023-09-26 15:32] VITALS: BP 142/94; PULSE 102; RESP 18; TEMP 36.5; O2SAT 98; BMI 38.4
[2023-09-26] MEDS: Omalizumab 150 MG/ML SYRINGE 300 MG SUBCUT (15:45)
== END 2023-09-26 15:32 | disposition home or self-care (01) ==
LOC: HO.MDS 15:31
PROVIDERS: Visit Provider Internal Medicine Pulmonary Disease
DX: J45.50 Severe persistent asthma, uncomplicated (principal)
CPT/HCPCS: 96372; J2357

== ENCOUNTER 2023-10-10 15:30 | Outpatient (REF) | payer OTHER, SELFPAY ==
[2023-10-10 15:37] VITALS: BP 145/90; PULSE 88; RESP 18; TEMP 36.7; O2SAT 98
[2023-10-10] MEDS: Omalizumab 150 MG/ML SYRINGE 300 MG SUBCUT (15:39)
== END 2023-10-10 15:31 | disposition home or self-care (01) ==
LOC: HO.MDS 15:30
PROVIDERS: Visit Provider Internal Medicine Pulmonary Disease
DX: J45.50 Severe persistent asthma, uncomplicated (principal)
CPT/HCPCS: 96372; J2357

== ENCOUNTER 2023-10-24 07:07 | Outpatient (REF) | payer OTHER, SELFPAY ==
[2023-10-24 07:08] VITALS: BP 147/88; PULSE 88; RESP 20; TEMP 36.7; O2SAT 97
[2023-10-24] MEDS: Omalizumab 150 MG/ML SYRINGE 300 MG SUBCUT (07:12)
== END 2023-10-24 07:08 | disposition home or self-care (01) ==
LOC: HO.MDS 07:07
PROVIDERS: Visit Provider Internal Medicine Pulmonary Disease
DX: J45.50 Severe persistent asthma, uncomplicated (principal)
CPT/HCPCS: 96372; J2357

== ENCOUNTER 2023-10-24 07:34 | Outpatient (REF) | payer OTHER, SELFPAY ==
[2023-10-24 11:34] LABS: Alanine Aminotransferase 30 U/L (0-31); Albumin Level 4.2 g/dL (3.5-5.0); Alkaline Phosphatase 79 U/L (39-117); Anion Gap 13 (12-20); Aspartate Amino Transferase 19 U/L (5-31); Bilirubin Total 0.7 mg/dL (0.0-1.0); Blood Urea Nitrogen 12 mg/dL (9-16); Calcium 9.3 mg/dL (8.4-10.2); Carbon Dioxide 23 mmol/L (22-29); Chloride 106 mmol/L (96-108); Cholesterol 140 mg/dL (<200); Estimated Glomerular Filt Rate > 60; Glucose Fasting 107 mg/dL (60-99); HDL Cholesterol 43 mg/dL (>40); LDL Cholesterol Calculated 81 mg/dL (<100); Potassium 4.1 mmol/L (3.3-5.1); Sodium 138 mmol/L (135-145); Triglycerides 81 mg/dL (<150)
== END 2023-10-24 07:35 | disposition home or self-care (01) ==
LOC: HO.10HDL 07:34
PROVIDERS: Visit Provider Internal Medicine
DX: Z00.00 Encounter for general adult medical examination without abnormal findings (principal); Z13.6 Encounter for screening for cardiovascular disorders
CPT/HCPCS: 36415; 80053; 80061

== ENCOUNTER 2023-10-27 15:34 | Outpatient (AMB) | payer OTHER, SELFPAY ==
--- NOTE | 2023-10-27 15:40 | MHC.PC.OV ---
Vital Signs 10/27/23 15:41 10/27/23 16:45 Height 4 ft 11 in Weight 187 lb BMI 37.8 BP 154/110 H 150/110 H Blood Pressure Location Lt brachial Lt brachial Position Sitting Sitting Intake Visit Reasons: bp,both hands numb/needs 30minutes Intake Note: Patient here follow up bp, bilateral hand pain and numbness, hip/joint pain Blanket Folder Required: No Accompanied by: Self / Same As Patient Allergies pineapple [PINEAPPLE] Allergy (Severe, Verified 10/27/23 16:06) SWELLING shellfish derived [SHELLFISH DERIVED] Allergy (Severe, Verified 10/27/23 16:06) ANAPHYLAXIS animal dander [PET DANDER] Allergy (Intermediate, Verified 10/27/23 16:06) ITCHING morphine [Morphine] Allergy (Intermediate, Verified 10/27/23 16:06) ITCHING NSAIDS (Non-Steroidal Anti-Inflamma [NSAIDS (NON-STEROIDAL ANTI-INFLAMMA] Allergy (Intermediate, Verified 10/27/23 16:06) BLEEDING sulfamethoxazole [From Bactrim] Allergy (Intermediate, Verified 10/27/23 16:06) RASH trimethoprim [From Bactrim] Allergy (Intermediate, Verified 10/27/23 16:06) RASH Medication List - Last Reconciled 10/27/23 by Yoana Saucedo MD albuterol sulfate 90 mcg/actuation 2 puffs inhalation Q6H PRN atorvastatin 10 mg PO BEDTIME 90 days bisacodyl (Dulcolax (bisacodyl)) 10 mg AL DAILY PRN bupropion HCl 150 mg PO QAM 90 days calcium polycarbophil (Fiber Laxative (calcium polycarbophil)) 1,250 mg (2 x 625 mg) PO DAILY 30 days cholecalciferol (vitamin D3) 50 mcg PO DAILY 90 days docusate sodium (Colace) 200 mg (2 x 100 mg) PO BEDTIME famotidine 40 mg PO DAILY fluticasone propion-salmeterol 250-50 mcg/dose (Advair Diskus) 1 ea PO BID omalizumab (Xolair) 300 mg (2 mL) subcut Q2W 28 days polyethylene glycol 3350 (Miralax) 17 grams PO DAILY sodium chloride 0.65% (Saline Nasal Mist) 2 sprays intranasal Q4H PRN sumatriptan succinate 50 mg PO DAILY PRN trazodone 100 mg (2 x 50 mg) PO BEDTIME PRN 90 days verapamil ER 240 mg PO DAILY Tobacco use date assessed: 10/27/23 Dental Screening Dental Screen Date: 10/27/23 Did you have a dental visit in the last 12 months?: Yes Did you have a dental problem in the last 6 months where you did not have access to dental care?: No Was dental information given to patient?: Patient has dentist HPI HPI Comments History of Present Illness Details This is a 47-year-old female with hypertension, pure hypercholesterolemia, moderate persistent asthma and mild recurrent major depression that comes today for follow-up on blood pressure which is elevated. I will add losartan to her verapamil. She follows with marketing and outreach coordinator which gave her verapamil at bedtime and I told her to take the losartan in the morning. Cholesterol stable with statins. Asthma has markedly improved with Xolair. Depression has also improved with medications. She denies any chest pain or shortness of breath. [facility] Medical History Migraine Pure hypercholesterolemia Morbid obesity with BMI of 40.0-44.9, adult Mild recurrent major depression Asthma exacerbation Contact with and (suspected) exposure to other viral communicable diseases Hypovitaminosis D Insomnia Depression with anxiety Moderate asthma Essential hypertension Pneumonia Surgical History History of endometrial ablation History of esophagogastroduodenoscopy (EGD) History of hysterectomy Family History Mother Hypertension Father Hypertension Mental health disorder Maternal Grandmother Colon cancer Other Family history of rheumatoid arthritis Social History Housing: House Alcohol intake: never Patient Tobacco Use Status: Never used Tobacco e-Cigarette/Vaping Use: Never Used Second Hand Smoke Exposure: No service: No Current occupational status: employed 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 1. Little interest or pleasure in doing things: not at all 2. Feeling down, depressed, or hopeless: several days 3. Trouble falling or staying asleep, or sleeping too much: not at all 4. Feeling tired or having little energy: more than half the days 5. Poor appetite or overeating: several days 6. Feeling bad about yourself - or that you are a failure or have let yourself or your family down: not at all 7. Trouble concentrating on things, such as reading the newspaper or watching television: several days 8. Moving or speaking so slowly that other people could have noticed. Or the opposite - being so fidgety or restless that you have been moving around a lot more than usual: not at all 9. Thoughts that you would be better off or of hurting yourself in some way: not at all Total score: 5 Depression Screening Interpretation: Positive Depression Screening Follow-up: Existing condition and In treatment Depression Screening Done: Yes 31801 - PHQ-9 Billing: Yes Source: Developed by Drs. Rohan Gil, Alexandra Cheng, Edd Noonan and colleagues, with an educational michele from [employer]. Thrive Questionnaire Date Thrive assessed: 10/27/23 I am a: Patient What is your living situation today?: I have a steady place to live Within the past 12 months, did the food you bought not last and you didn't have the money to get more?: Never true Within the past 12 months, did you worry whether your food would run out before you got money to buy more?: Never true Do you have trouble paying for medicines?: No Do you have trouble getting transportation to medical appointments?: No Do you have trouble paying your heating and electricity bill?: No Do you have trouble taking care of your child, family member or friend?: No Do you have trouble with day-to-day activities such as bathing, preparing meals, shopping, managing finances, etc.?: No Are you currently unemployed and looking for a job?: No Are you interested in more education?: No Please select the resources that you would like help with: None Currently or been in a relationship where the following occur: no concerns reported THRIVE Score: 0 AUDIT C Alcohol Use Questionnaire (AUDIT-C) 1. How often do you have a drink containing alcohol?: Never Total Score: 0 OLIVIA-7 AMB Questionnaire OLIVIA-7 Date OLIVIA - 7 assessed: 10/27/23 Feeling nervous, anxious, or on edge: 0 = Not at all Not being able to stop or control worryin = Not at all Worrying too much about different things: 0 = Not at all Trouble relaxin = Not at all Being so restless that it is hard to sit still: 0 = Not at all Becoming easily annoyed or irritable: 0 = Not at all Feeling afraid as if something awful might happen: 0 = Not at all Total OLIVIA-7 score (0-4 normal; 5-9 mild; 10-14 moderate; 15-21 severe): 0 Source: Developed by Drs. Rohan Gil, Alexandra Cheng, Edd Noonan and colleagues, with an educational michele from [employer]. OLIVIA-7 Assessment Billing OLIVIA-7 Assessment Tool: OLIVIA-7 Assessment 80216 Review of Systems Const All systems reviewed & are unremarkable except as noted in HPI and below Eyes Reports no additional complaints, Denies change in vision and Denies other visual disturbances Card Denies chest pain at rest, Denies chest pain with activity, Denies edema, Denies irregular heart rhythm, Denies claudication, Denies dyspnea, Denies dyspnea on exertion, Denies orthopnea, Denies paroxysmal nocturnal dyspnea and Denies slow heart rate Resp Denies cough, Denies dyspnea and Denies dyspnea on exertion GI Denies abdominal pain, Denies change in bowel habits, Denies excessive flatus, Denies nausea and Denies vomiting Denies urinary incontinence, Denies urinary hesitancy and Denies urinary urgency Physical exam (Primary Care) Vital Signs: Last Vital Signs BP 154/110 H 10/27/23 15:41 BMI result Body Mass Index 37.8 Tobacco/Smoking Status: Tobacco use Status Tobacco use date assessed 10/27/23 10/27/23 15:51 Patient Tobacco Use Status Never used Tobacco 10/27/23 15:43 Tobacco use type 01/08/23 07:28 e-Cigarette/Vaping Use Never Used 10/27/23 15:43 PHQ-9: PHQ-9 Score PHQ-9: Total score 5 10/27/23 16:10 Depression Screening Interpretation: Positive Depression Screening Follow-up: Existing condition and In treatment Thrive Assessment: Date of Thrive Assessment Date Thrive assessed 10/27/23 10/27/23 15:51 Currently or been in a relationship where the following occur: no concerns reported Cardio Jugular venous distension: no JVD Rate: regular rate Rhythm: regular rhythm Heart sounds: S1 normal heart sound present and S2 normal heart sound present Extrem General: Yes full ROM Assessment and Plan Assessment & Plan (1) Essential hypertension: Code(s): I10 - Essential (primary) hypertension Plan: Continue verapamil. Start losartan. Follow-up with Cardiology. Blood pressure goal is equal or less than 130/80. Recheck blood pressure with nurse navigator in 3 weeks. (2) Moderate asthma: Code(s): J45.909 - Unspecified asthma, uncomplicated Qualifiers: Asthma persistence: persistent Asthma complication type: with acute exacerbation Qualified Code(s): J45.41 - Moderate persistent asthma with (acute) exacerbation Plan: Continue long-acting inhaler. Use rescue inhaler as needed. Continue Xolair. Follow-up with pulmonology. (3) Mild recurrent major depression: Code(s): F33.0 - Major depressive disorder, recurrent, mild Plan: Continue bupropion. (4) Pure hypercholesterolemia: Code(s): E78.00 - Pure hypercholesterolemia, unspecified Plan: Continue statins. Medications: New losartan 25 mg PO DAILY 90 days 90 tabs 1RF I10 - Essential (primary) hypertension Coding Level of Care Code Est Pt Level 4 (77064) Diagnoses Essential hypertension I10 Moderate persistent asthma with acute exacerbation J45.41 Asthma persistence: persistent Asthma complication type: with acute exacerbation Mild recurrent major depression F33.0 Pure hypercholesterolemia E78.00 Additional Codes OLIVIA-7 Assessment Billing - OLIVIA-7 Assessment Tool: OLIVIA-7 Assessment 73665 ([id number]) Time Spent (min) 24
[2023-10-27 15:41] VITALS: BP 154/110; BMI 37.8
[2023-10-27 16:45] VITALS: BP 150/110
== END 2023-10-27 16:30 | disposition home or self-care (01) ==
PROVIDERS: PCP Internal Medicine; Visit Provider Internal Medicine
DX: I10 Essential (primary) hypertension (principal); J45.41 Moderate persistent asthma with (acute) exacerbation; F33.0 Major depressive disorder, recurrent, mild; E78.00 Pure hypercholesterolemia, unspecified
CPT/HCPCS: 99214

== ENCOUNTER 2023-11-08 08:59 | Outpatient (REF) | payer OTHER, SELFPAY | END 2023-11-08 09:00 | disposition home or self-care (01) | LOC: HO.MAMMO 08:59 | PROVIDERS: PCP Internal Medicine; Visit Provider Internal Medicine | DX: Z12.31 Encounter for screening mammogram for malignant neoplasm of breast (principal) | CPT/HCPCS: 77063; 77067 ==

== ENCOUNTER → 2023-11-08 09:45 | Outpatient (BNV) | payer OTHER, SELFPAY | PROVIDERS: PCP Internal Medicine; Visit Provider Radiology Diagnostic Radiology | DX: Z12.31 Encounter for screening mammogram for malignant neoplasm of breast (principal) | CPT/HCPCS: 77063; 77067 ==

== ENCOUNTER 2023-11-13 09:10 | Outpatient (AMB) | payer OTHER, SELFPAY ==
--- NOTE | 2023-11-13 09:23 | A.OFFVIS_ITS ---
Intake Vital Signs 11/13/23 09:24 Height 4 ft 11 in Weight 189 lb 9.561 oz BMI 38.3 BP 142/80 H Blood Pressure Location Rt brachial Position Sitting Pulse 102 H Pulse Source Pulse Oximeter Pulse Oximetry (%) 98 Oxygen Delivery Method Room Air Intake Visit Reasons: left hip pain Intake Note: Pt presents today for left hip pain x 1 month. Sometimes unable to bear weight. Pain is aggravated by stairs, prolonged sitting and is worse at night. She has tried Tylenol, icy hot, voltaren gel but none provide relief. Also reports pain in other joints Health Outreach Worker Required: No Accompanied by: Self / Same As Patient Allergies pineapple [PINEAPPLE] Allergy (Severe, Verified 11/13/23 09:26) SWELLING shellfish derived [SHELLFISH DERIVED] Allergy (Severe, Verified 11/13/23 09:26) ANAPHYLAXIS animal dander [PET DANDER] Allergy (Intermediate, Verified 11/13/23 09:26) ITCHING morphine [Morphine] Allergy (Intermediate, Verified 11/13/23 09:26) ITCHING NSAIDS (Non-Steroidal Anti-Inflamma [NSAIDS (NON-STEROIDAL ANTI-INFLAMMA] Allergy (Intermediate, Verified 11/13/23 09:26) BLEEDING sulfamethoxazole [From Bactrim] Allergy (Intermediate, Verified 11/13/23 09:26) RASH trimethoprim [From Bactrim] Allergy (Intermediate, Verified 11/13/23 09:26) RASH Medication List - Last Reconciled 11/13/23 by Maria E Whitmore MD albuterol sulfate 90 mcg/actuation 2 puffs inhalation Q6H PRN atorvastatin 10 mg PO BEDTIME 90 days bisacodyl (Dulcolax (bisacodyl)) 10 mg IN DAILY PRN bupropion HCl XL 150 mg PO QAM 90 days calcium polycarbophil (Fiber-Lax) 1,250 mg (2 x 625 mg) PO DAILY cholecalciferol (vitamin D3) 50 mcg PO DAILY 90 days docusate sodium (Colace) 200 mg (2 x 100 mg) PO BEDTIME famotidine 40 mg PO DAILY fluticasone propion-salmeterol 250-50 mcg/dose (Advair Diskus) 1 ea PO BID losartan 25 mg PO DAILY 90 days methylprednisolone (Medrol (Krishna)) PO PER PKG DIR omalizumab (Xolair) 300 mg (2 mL) subcut Q2W 28 days polyethylene glycol 3350 (Miralax) 17 grams PO DAILY sodium chloride 0.65% (Saline Nasal Mist) 2 sprays intranasal Q4H PRN sumatriptan succinate 50 mg PO DAILY PRN trazodone 100 mg (2 x 50 mg) PO BEDTIME PRN 90 days verapamil ER 240 mg PO DAILY HPI HPI Comments History of Present Illness Details Patient returns for follow-up. She is here for evaluation of left hip pain. It started approximately 1 month ago. She stated that she has started walking in order to lose weight to control her hypertension. She has developed pain in her left buttock, left groin and the outside of her left hip. Pain is worse with activity, worse when getting out of her car, lying on her side and after sitting down for some time and standing up. She states that she can not take NSAIDs due to GI problems. She does take Tylenol without much relief. [facility] Medical History Migraine Pure hypercholesterolemia Morbid obesity with BMI of 40.0-44.9, adult Mild recurrent major depression Asthma exacerbation Contact with and (suspected) exposure to other viral communicable diseases Hypovitaminosis D Insomnia Depression with anxiety Moderate asthma Essential hypertension Pneumonia Surgical History History of endometrial ablation History of esophagogastroduodenoscopy (EGD) History of hysterectomy Family History Mother Hypertension Father Hypertension Mental health disorder Maternal Grandmother Colon cancer Other Family history of rheumatoid arthritis Social History Housing: House Alcohol intake: never Patient Tobacco Use Status: Never used Tobacco e-Cigarette/Vaping Use: Never Used Second Hand Smoke Exposure: No service: No Current occupational status: employed 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, rt hand Current occupational exposures/hazards: No Cognitive needs: No Hearing needs: No Vision needs: Yes (Glasses) Review of Systems Musc Reports arthralgias, Reports limited range of motion and Reports stiffness Physical Exam Vital Signs: Last Vital Signs Pulse 102 H 11/13/23 09:24 BP 142/80 H 11/13/23 09:24 Pulse Ox 98 11/13/23 09:24 Oxygen Delivery Method Room Air 11/13/23 09:24 BMI result Body Mass Index 38.3 Const General: cooperative, healthy appearing, comfortable and no acute distress Nutritional Appearance: obese Orientation/consciousness: patient oriented x3 Limitations: no limitations HEENT Head: Yes normocephalic and Yes atraumatic Resp Effort & Inspection: normal respiratory effort and able to speak in complete sentences Neuro General: patient oriented x3 Extrem Other: Left lower lumbar paraspinal muscle tenderness, Left buttock tenderness Left trochanteric bursa area tenderness with negative Dilcia's test Assessment & Plan Assessment & Plan (1) Trochanteric bursitis, left hip: Code(s): M70.62 - Trochanteric bursitis, left hip Plan: Patient is here for evaluation of abrupt onset of left buttock, left hip and left groin pain in the setting of increased physical activity. This is likely gluteal tendinitis/trochanteric bursitis. Will prescribe a Medrol Dosepak. Provided patient with a printout of home exercises for trochanteric bursitis. Follow-up as needed Plan I spent 15 minutes reviewing patient's chart, evaluating patient, counseling patient and documenting in the chart Medications: New methylprednisolone (Medrol (Krishna)) PO PER PKG DIR 21 ea 0RF Coding Level of Care Code Est Pt Level 3 (19653) Diagnoses Trochanteric bursitis, left hip M70.62
[2023-11-13 09:24] VITALS: BP 142/80; PULSE 102; O2SAT 98; BMI 38.3
== END 2023-11-13 10:27 | disposition home or self-care (01) ==
PROVIDERS: PCP Internal Medicine; Visit Provider Student in an Organized Health Care Education/Training Program
DX: M70.62 Trochanteric bursitis, left hip (principal)
CPT/HCPCS: 99213

== ENCOUNTER → 2023-11-13 09:10 | Outpatient (BNVA) | payer OTHER, SELFPAY | PROVIDERS: PCP Internal Medicine; Visit Provider Student in an Organized Health Care Education/Training Program ==

== ENCOUNTER 2023-11-25 15:29 | Outpatient (AMB) | payer OTHER, SELFPAY ==
--- NOTE | 2023-11-25 15:32 | MHC.OFFVIS ---
Vital Signs 11/25/23 15:33 Height 4 ft 11 in Weight 190 lb 11.198 oz BMI 38.5 BP 138/80 Blood Pressure Location Rt brachial Position Sitting Pulse 99 Pulse Source Doppler Pulse Oximetry (%) 98 Oxygen Delivery Method Room Air Intake Visit Reasons: Asthma Allergies pineapple [PINEAPPLE] Allergy (Severe, Verified 11/25/23 15:38) SWELLING shellfish derived [SHELLFISH DERIVED] Allergy (Severe, Verified 11/25/23 15:38) ANAPHYLAXIS animal dander [PET DANDER] Allergy (Intermediate, Verified 11/25/23 15:38) ITCHING morphine [Morphine] Allergy (Intermediate, Verified 11/25/23 15:38) ITCHING NSAIDS (Non-Steroidal Anti-Inflamma [NSAIDS (NON-STEROIDAL ANTI-INFLAMMA] Allergy (Intermediate, Verified 11/25/23 15:38) BLEEDING sulfamethoxazole [From Bactrim] Allergy (Intermediate, Verified 11/25/23 15:38) RASH trimethoprim [From Bactrim] Allergy (Intermediate, Verified 11/25/23 15:38) RASH HPI HPI Asthma: Details: 47-year-old lady, nonsmoker, with underlying history of asthma diagnosed when she was a child, now followed for underlying moderate to severe persistent allergic asthma and multiple environmental allergies.? She continues on Advair and continued on Xolair, and albuterol MDI with good control of her symptoms. She denies any recent exacerbations. [facility] Medical History Migraine Pure hypercholesterolemia Morbid obesity with BMI of 40.0-44.9, adult Mild recurrent major depression Asthma exacerbation Contact with and (suspected) exposure to other viral communicable diseases Hypovitaminosis D Insomnia Depression with anxiety Moderate asthma Essential hypertension Pneumonia Surgical History History of endometrial ablation History of esophagogastroduodenoscopy (EGD) History of hysterectomy Family History Mother Hypertension Father Hypertension Mental health disorder Maternal Grandmother Colon cancer Other Family history of rheumatoid arthritis Social History Housing: House Alcohol intake: never Patient Tobacco Use Status: Never used Tobacco e-Cigarette/Vaping Use: Never Used Second Hand Smoke Exposure: No service: No Current occupational status: employed Current occupation: [employer] [place] [employer] [employer] [place] Current occupational exposures/hazards: No Cognitive needs: No Hearing needs: No Vision needs: Yes (Glasses) Review of Systems Const Denies daytime sleepiness, Denies excessive sweating, Denies fatigue, Denies fever(s), Denies lethargy, Denies malaise, Denies night sweats, Denies snoring and Denies weight loss Eyes Denies blurry vision and Denies itchy eyes ENT Denies nasal congestion, Denies post nasal drip, Denies sinus pain, Denies sinus pressure and Denies other ( Thrush) Card Denies chest pain, Denies pedal edema, Denies dyspnea, Denies orthopnea and Denies paroxysmal nocturnal dyspnea Resp Denies cough, Denies hemoptysis, Denies excessive phlegm production, Denies dyspnea, Denies snoring and Denies wheezing GI Denies abdominal pain and Denies heartburn Musc Denies myalgias, Denies arthralgias and Denies joint swelling Skin/Breast Denies rash Neuro Denies memory loss and Denies seizure-like activity Psych Denies abnormal sleep pattern, Denies anxiety and Denies memory loss Endo Denies excessive sweating, Denies fatigue and Denies heat intolerance Lon/Lymph Denies easy bruising Aller/Immun Denies itchy eyes, Denies seasonal rhinorrhea and Denies wheezing Physical Exam Vital Signs: Last Vital Signs Pulse 99 11/25/23 15:33 BP 138/80 11/25/23 15:33 Pulse Ox 98 11/25/23 15:33 Oxygen Delivery Method Room Air 11/25/23 15:33 BMI result Body Mass Index 38.5 Const General: no acute distress and alert Nutritional Appearance: not obese Orientation/consciousness: Other orientation findings ( oriented) HEENT Head: Yes atraumatic Eyes General: appearance normal, both eyes and all related structures Sclerae: sclerae normal EOM: EOMs intact bilaterally Neck Neck: Yes supple Lymphatic: no lymphadenopathy noted Resp Effort & Inspection: normal respiratory effort and no use of accessory muscles Auscultation: clear to auscultation bilaterally Cardio Rate: regular rate Rhythm: regular rhythm Heart sounds: no gallops, no murmurs and no rubs Skin General skin exam: other ( warm) Extrem General: No clubbing, No cyanosis and No edema Assessment & Plan Assessment & Plan (1) Severe persistent allergic asthma: Code(s): J45.50 - Severe persistent asthma, uncomplicated Category: Medical Plan: Excellent control on Xolair, Advair, and albuterol MDI. Continue current regimen. (2) Environmental allergies: Code(s): Z91.09 - Other allergy status, other than to drugs and biological substances Category: Medical Plan: Well controlled on Xolair. Continue current regimen. Coding Level of Care Code Est Pt Level 4 (35468) Diagnoses Severe persistent allergic asthma J45.50 Environmental allergies Z91.09
[2023-11-25 15:33] VITALS: BP 138/80; PULSE 99; O2SAT 98; BMI 38.5
== END 2023-11-25 15:46 | disposition home or self-care (01) ==
PROVIDERS: PCP Internal Medicine; Visit Provider Internal Medicine Pulmonary Disease
DX: J45.50 Severe persistent asthma, uncomplicated (principal); Z91.09 Other allergy status, other than to drugs and biological substances
CPT/HCPCS: 99214

== ENCOUNTER → 2023-11-25 15:29 | Outpatient (BNVA) | payer OTHER, SELFPAY | PROVIDERS: PCP Internal Medicine; Visit Provider Internal Medicine Pulmonary Disease ==

== ENCOUNTER 2024-01-26 14:01 | Outpatient (REF) | payer OTHER, SELFPAY ==
--- NOTE | ~2024-01-26 | MR_ITS ---
EXAMINATION: MR BRAIN WITHOUT AND WITH CONTRAST CLINICAL INFORMATION: Migraine headache, optic neuritis COMPARISON: CT scan brain on 09/03/2018 TECHNIQUE: Multiplanar, multisequence MRI of the brain was obtained before and after the intravenous administration of 8.5 mL Gadavist. FINDINGS: Ventricles, sulci and cisterns are normal. No focal cerebral, brainstem or cerebellar lesions with abnormal signal can be seen. Diffusion weighted images show no abnormal regional decrease in diffusion. Post contrast images show no enhancing cerebral, brainstem or cerebellar lesions. No abnormal meningeal enhancement is seen. The pituitary gland is normal. Optic chiasm is not displaced. Cerebellar tonsils position is normal. Moderate circumferential mucosal thickening is seen in lower left maxillary sinus. The right maxillary sinus also shows mild circumferential mucosal thickening in the lower portion. Right anterior upper ethmoid air cells show moderate mucosal thickening. ORBITS: Bilateral eyeballs are intact. The extraocular muscles, bilateral optic nerve/ophthalmic vein complexes are intact with normal signal intensity, enhancement and symmetrical. Bilateral intraorbital fat planes are normal. MR/MR head/brain wo/w con IMPRESSION: 1. Normal MRI scan of the brain. 2. No acute cerebral infarction is seen. 3. No evidence of space occupying or enhancing intracranial mass lesion could be found. 4. No evidence of intracranial hemorrhage. 5. Interval development of bilateral maxillary antrum and right ethmoid sinus disease. 6. Within the limitation of whole brain evaluation, there are no imaging signs for optic nerve neuritis or neuroma.
[2024-01-26] MEDS: gadobutroL 10 ML VIAL IVPUSH (15:19)
== END 2024-01-26 14:02 | disposition home or self-care (01) ==
LOC: HO.MRI 14:01
PROVIDERS: PCP Internal Medicine; Visit Provider Psychiatry & Neurology Neurology
DX: H46.9 Unspecified optic neuritis (principal); G43.909 Migraine, unspecified, not intractable, without status migrainosus
CPT/HCPCS: 70553; A9585

== ENCOUNTER 2024-05-27 14:29 | Outpatient (AMB) | payer OTHER, SELFPAY ==
[2024-05-27 15:26] VITALS: BP 124/78; PULSE 91; O2SAT 97
--- NOTE | 2024-05-27 15:26 | A.OFFVIS_ITS ---
Vital Signs 05/27/24 15:26 Weight 192 lb 14.472 oz BP 124/78 Blood Pressure Location Rt brachial Position Sitting Pulse 91 Pulse Source Doppler Pulse Oximetry (%) 97 Oxygen Delivery Method Room Air Intake Visit Reasons: Asthma Allergies pineapple [PINEAPPLE] Allergy (Severe, Verified 05/27/24 15:34) SWELLING shellfish derived [SHELLFISH DERIVED] Allergy (Severe, Verified 05/27/24 15:34) ANAPHYLAXIS animal dander [PET DANDER] Allergy (Intermediate, Verified 05/27/24 15:34) ITCHING morphine [Morphine] Allergy (Intermediate, Verified 05/27/24 15:34) ITCHING NSAIDS (Non-Steroidal Anti-Inflamma [NSAIDS (NON-STEROIDAL ANTI-INFLAMMA] All ergy (Intermediate, Verified 05/27/24 15:34) BLEEDING sulfamethoxazole [From Bactrim] Allergy (Intermediate, Verified 05/27/24 15:34) RASH trimethoprim [From Bactrim] Allergy (Intermediate, Verified 05/27/24 15:34) RASH HPI HPI Asthma: Details: 48-year-old lady, nonsmoker, with underlying history of asthma diagnosed when she was a child, now followed for underlying moderate to severe persistent allergic asthma and multiple environmental allergies.? She continues on Advair and continued on Xolair, and albuterol MDI with good control of her symptoms. She denies any recent exacerbations. At this time patient is feeling very well and wants to try stopping her Xolair. [facility] Medical History Migraine Pure hypercholesterolemia Morbid obesity with BMI of 40.0-44.9, adult Mild recurrent major depression Asthma exacerbation Contact with and (suspected) exposure to other viral communicable diseases Hypovitaminosis D Insomnia Depression with anxiety Moderate asthma Essential hypertension Pneumonia Surgical History History of endometrial ablation History of esophagogastroduodenoscopy (EGD) History of hysterectomy Family History Mother Hypertension Father Hypertension Mental health disorder Maternal Grandmother Colon cancer Other Family history of rheumatoid arthritis Social History Housing: House Alcohol intake: never Patient Tobacco Use Status: Never used Tobacco e-Cigarette/Vaping Use: Never Used Second Hand Smoke Exposure: No service: No Current occupational status: employed Current occupation: [employer] [place] [employer] [employer] Current occupational exposures/hazards: No Cognitive needs: No Hearing needs: No Vision needs: Yes (Glasses) Review of Systems Const Denies daytime sleepiness, Denies excessive sweating, Denies fatigue, Denies fever(s), Denies lethargy, Denies malaise, Denies night sweats, Denies snoring and Denies weight loss Eyes Denies blurry vision and Denies itchy eyes ENT Denies nasal congestion, Denies post nasal drip, Denies sinus pain, Denies sinus pressure and Denies other ( Thrush) Card Denies chest pain, Denies pedal edema, Denies dyspnea, Denies orthopnea and Denies paroxysmal nocturnal dyspnea Resp Denies cough, Denies hemoptysis, Denies excessive phlegm production, Denies dyspnea, Denies snoring and Denies wheezing GI Denies abdominal pain and Denies heartburn Musc Denies myalgias, Denies arthralgias and Denies joint swelling Skin/Breast Denies rash Neuro Denies memory loss and Denies seizure-like activity Psych Denies abnormal sleep pattern, Denies anxiety and Denies memory loss Endo Denies excessive sweating, Denies fatigue and Denies heat intolerance Lon/Lymph Denies easy bruising Aller/Immun Denies itchy eyes, Denies seasonal rhinorrhea and Denies wheezing Physical Exam Vital Signs: Last Vital Signs Pulse 91 05/27/24 15:26 BP 124/78 05/27/24 15:26 Pulse Ox 97 05/27/24 15:26 Oxygen Delivery Method Room Air 05/27/24 15:26 Const General: no acute distress and alert Nutritional Appearance: obese Orientation/consciousness: Other orientation findings ( oriented) HEENT Head: Yes atraumatic Eyes General: appearance normal, both eyes and all related structures Sclerae: sclerae normal EOM: EOMs intact bilaterally Neck Neck: Yes supple Lymphatic: no lymphadenopathy noted Resp Effort & Inspection: normal respiratory effort and no use of accessory muscles Auscultation: clear to auscultation bilaterally Cardio Rate: regular rate Rhythm: regular rhythm Heart sounds: no gallops, no murmurs and no rubs Skin General skin exam: other ( warm) Extrem General: No clubbing, No cyanosis and No edema Assessment & Plan Assessment & Plan (1) Environmental allergies: Code(s): Z91.09 - Other allergy status, other than to drugs and biological substances Category: Medical Plan: Patient wants to stop Xolair and reassess her symptoms. Will hold Xolair. (2) Severe persistent allergic asthma: Code(s): J45.50 - Severe persistent asthma, uncomplicated Category: Medical Plan: Patient wants to stop Xolair and reassess her symptoms of overt. Will hold Xolair. Continue baseline regimen of Advair and albuterol MDI. Coding Level of Care Code Est Pt Level 4 (65470) Diagnoses Environmental allergies Z91.09 Severe persistent allergic asthma J45.50
== END 2024-05-27 15:49 | disposition home or self-care (01) ==
LOC: HO.HPS 14:30
PROVIDERS: PCP Internal Medicine; Visit Provider Internal Medicine Pulmonary Disease
DX: Z91.09 Other allergy status, other than to drugs and biological substances (principal); J45.50 Severe persistent asthma, uncomplicated
CPT/HCPCS: 99214

== ENCOUNTER → 2024-05-27 14:29 | Outpatient (BNVA) | payer OTHER, SELFPAY | PROVIDERS: PCP Internal Medicine; Visit Provider Internal Medicine Pulmonary Disease ==

== ENCOUNTER 2024-06-30 15:46 | Outpatient (AMB) | payer OTHER, SELFPAY ==
[2024-06-30 16:29] VITALS: BP 152/98; BMI 38.8
--- NOTE | 2024-06-30 16:29 | MHC.PC.OV ---
Vital Signs 06/30/24 16:29 Height 4 ft 11 in Weight 192 lb BMI 38.8 BP 152/98 H Blood Pressure Location Lt brachial Position Sitting Intake Visit Reasons: PE Intake Note: Patient here for a physical exam Sample Sawyer Required: No Accompanied by: Self / Same As Patient Allergies pineapple [PINEAPPLE] Allergy (Severe, Verified 06/30/24 16:55) SWELLING shellfish derived [SHELLFISH DERIVED] Allergy (Severe, Verified 06/30/24 16:55) ANAPHYLAXIS animal dander [PET DANDER] Allergy (Intermediate, Verified 06/30/24 16:55) ITCHING morphine [Morphine] Allergy (Intermediate, Verified 06/30/24 16:55) ITCHING NSAIDS (Non-Steroidal Anti-Inflamma [NSAIDS (NON-STEROIDAL ANTI-INFLAMMA] Allergy (Intermediate, Verified 06/30/24 16:55) BLEEDING sulfamethoxazole [From Bactrim] Allergy (Intermediate, Verified 06/30/24 16:55) RASH trimethoprim [From Bactrim] Allergy (Intermediate, Verified 06/30/24 16:55) RASH Medication List - Last Reconciled 06/30/24 by Yoana Saucedo MD atorvastatin 10 mg PO BEDTIME 90 days bisacodyl (Dulcolax (bisacodyl)) 10 mg [place] DAILY PRN bupropion HCl XL 150 mg PO QAM 90 days calcium polycarbophil (Fiber-Lax) 1,250 mg (2 x 625 mg) PO DAILY cholecalciferol (vitamin D3) 50 mcg PO DAILY 90 days docusate sodium (Colace) 200 mg (2 x 100 mg) PO BEDTIME famotidine 40 mg PO DAILY losartan 25 mg PO DAILY 90 days sodium chloride 0.65% (Saline Nasal Mist) 2 sprays intranasal Q4H PRN sumatriptan succinate 50 mg PO DAILY PRN trazodone 100 mg (2 x 50 mg) PO BEDTIME PRN 90 days verapamil ER 240 mg PO DAILY Tobacco use date assessed: 10/27/23 Dental Screening Dental Screen Date: 10/27/23 HPI HPI Comments History of Present Illness Details The patient is a 48-year-old female presenting for her physical exam. She has hypertension, hyperlipidemia, and anxiety. She has a history of elevated blood pressure, which will be recheck in three weeks, and is managed with Losartan. The patient reports that her blood pressure is lower with increased physical activity but never completely stabilizes. She is currently prescribed atorvastatin for hyperlipidemia, with prior cholesterol levels well-controlled as of October. The patient has an interest in potentially reducing pharmacological management. Anxiety and insomnia are well-managed with daily bupropion (150mg), and trazodone aids in sleep. Previous experiences with a higher dose of bupropion (300mg) resulted in increased anxiety. The patient reports an improvement in anxiety symptoms but has occasional recurring depression, with a PHQ-9 score of 10, suggesting mild depression. The patient reports migraines managed by sumatriptan (50mg). She has a documented allergy to pineapple, shellfish, animal dander, morphine, and NSAIDs, which can cause skin reactions and bleeding. There's a noted sensitivity to sulfate, causing diarrhea. Additionally, the patient has undergone a hysterectomy for benign reasons therefore no need for Pap smear. - Regular monitoring of blood pressure - Previous screenings: endoscopy and colonoscopy performed this year - Encouraged to maintain a heart-healthy diet and regular physical activity [facility] Medical History Migraine Pure hypercholesterolemia Morbid obesity with BMI of 40.0-44.9, adult Mild recurrent major depression Asthma exacerbation Contact with and (suspected) exposure to other viral communicable diseases Hypovitaminosis D Insomnia Depression with anxiety Moderate asthma Essential hypertension Pneumonia Surgical History History of endometrial ablation History of esophagogastroduodenoscopy (EGD) History of hysterectomy Family History Mother Hypertension Father Hypertension Mental health disorder Maternal Grandmother Colon cancer Other Family history of rheumatoid arthritis Social History Housing: House Alcohol intake: never Patient Tobacco Use Status: Never used Tobacco e-Cigarette/Vaping Use: Never Used Second Hand Smoke Exposure: No service: No Current occupational status: employed Current occupation: [employer] [place] [employer],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 1. Little interest or pleasure in doing things: several days 2. Feeling down, depressed, or hopeless: several days 3. Trouble falling or staying asleep, or sleeping too much: several days 4. Feeling tired or having little energy: nearly every day 5. Poor appetite or overeating: not at all 6. Feeling bad about yourself - or that you are a failure or have let yourself or your family down: not at all 7. Trouble concentrating on things, such as reading the newspaper or watching television: nearly every day 8. Moving or speaking so slowly that other people could have noticed. Or the opposite - being so fidgety or restless that you have been moving around a lot more than usual: several days 9. Thoughts that you would be better off or of hurting yourself in some way: not at all Total score: 10 Depression Screening Interpretation: Positive Depression Screening Follow-up: Existing condition, In treatment and Follow-up Visit Requested Depression Screening Done: Yes 76122 - PHQ-9 Billing: Yes Source: Developed by Drs. Rohan Gil, Alexandra Cheng, Edd Noonan and colleagues, with an educational michele from [employer]. Thrive Questionnaire Date Thrive assessed: 10/27/23 I am a: Patient What is your living situation today?: I have a steady place to live Within the past 12 months, did the food you bought not last and you didn't have the money to get more?: Never true Within the past 12 months, did you worry whether your food would run out before you got money to buy more?: Never true Do you have trouble paying for medicines?: No Do you have trouble getting transportation to medical appointments?: No Do you have trouble paying your heating and electricity bill?: No Do you have trouble taking care of your child, family member or friend?: No Do you have trouble with day-to-day activities such as bathing, preparing meals, shopping, managing finances, etc.?: No Are you currently unemployed and looking for a job?: No Are you interested in more education?: No Please select the resources that you would like help with: None Currently or been in a relationship where the following occur: No concerns reported THRIVE Score: 0 AUDIT C Alcohol Use Questionnaire (AUDIT-C) 1. How often do you have a drink containing alcohol?: Never Total Score: 0 Score Reviewed/Action Taken: No OLIVIA-7 AMB Questionnaire OLIVIA-7 Date OLIVIA - 7 assessed: 10/27/23 Feeling nervous, anxious, or on edge: 0 = Not at all Not being able to stop or control worryin = Not at all Worrying too much about different things: 0 = Not at all Trouble relaxin = Nearly every day Being so restless that it is hard to sit still: 1 = Several days Becoming easily annoyed or irritable: 0 = Not at all Feeling afraid as if something awful might happen: 0 = Not at all Total OLIVIA-7 score (0-4 normal; 5-9 mild; 10-14 moderate; 15-21 severe): 4 Source: Developed by Drs. Rohan Gil, Alexandra Cheng, Edd Noonan and colleagues, with an educational michele from [employer]. OLIVIA-7 Assessment Billing OLIVIA-7 Assessment Tool: OLIVIA-7 Assessment 31501 Review of Systems Const All systems reviewed & are unremarkable except as noted in HPI and below Card Denies chest pain at rest, Denies chest pain with activity, Denies edema, Denies irregular heart rhythm, Denies claudication, Denies dyspnea, Denies dyspnea on exertion, Denies orthopnea, Denies paroxysmal nocturnal dyspnea and Denies slow heart rate Resp Denies cough, Denies dyspnea and Denies dyspnea on exertion GI Denies abdominal pain, Denies change in bowel habits, Denies excessive flatus, Denies nausea and Denies vomiting Denies urinary incontinence, Denies urinary hesitancy and Denies urinary urgency Musc Denies abnormal gait, Denies atrophy, Denies deformity and Denies limited range of motion Skin/Breast Denies bleeding lesions, Denies changing lesions and Denies rash Neuro Denies abnormal gait and Denies lack of coordination Physical exam (Primary Care) Vital Signs: Last Vital Signs BP 152/98 H 06/30/24 16:29 BMI result Body Mass Index 38.8 BMI Assessment/Plan discussion: High BMI High, discussed plan: lifestyle, weight reduction, dietary and physical activity Tobacco/Smoking Status: Tobacco use Status Tobacco use date assessed 10/27/23 06/30/24 16:35 Patient Tobacco Use Status Never used Tobacco 06/30/24 16:35 Tobacco use type 06/14/23 07:28 e-Cigarette/Vaping Use Never Used 06/30/24 16:35 PHQ-9: PHQ-9 Score PHQ-9: Total score 10 06/30/24 17:07 Depression Screening Interpretation: Positive Depression Screening Follow-up: Existing condition, In treatment and Follow-up Visit Requested Thrive Assessment: Date of Thrive Assessment Date Thrive assessed 10/27/23 06/30/24 16:35 Currently or been in a relationship where the following occur: No concerns reported HENMT Head: Yes normal to inspection, Yes normocephalic and Yes atraumatic Ears: external ears normal Eyes General: appearance normal, both eyes and all related structures Eyelids: Yes eyelids normal Conjunctivae: conjunctivae normal Neck Neck: Yes normal visual inspection and Yes supple Resp Effort & Inspection: normal respiratory effort Auscultation: clear to auscultation bilaterally Cardio Jugular venous distension: no JVD Rate: regular rate Rhythm: regular rhythm Heart sounds: S1 normal heart sound present and S2 normal heart sound present GI Inspection: Yes normal to inspection Palpation (GI): Soft to palpation and nontender Auscultation: normal bowel sounds Skin General skin exam: no rashes or lesions noted Neuro General: no focal motor deficits Extrem General: Yes full ROM Psych Appearance: grossly normal Office Procedures Flu Questionnaire Does the patient have a severe egg allergy?: No Immunizations Fluarix Triv [id number] (PF) 45 mcg (15 mcg x 3)/0.5 mL IM syringe Performing Provider: Yoana Saucedo MD [place] [facility] [facility] [place] [facility] Documented (not given) by: SADIQ Bose on 06/30/24 16:36 Reason Not Given: Patient Refused Coding Level of Care Code Est Pt Level 3 (53120) Est Pt Prev Care 40-64y(05267) Diagnoses Physical exam Z00.00 Class 2 obesity with body mass index (BMI) of 38.0 to 38.9 in adult E66.812; Z68.38 Mild recurrent major depression F33.0 Essential hypertension I10 Additional Codes OLIVIA-7 Assessment Billing - OLIVIA-7 Assessment Tool: OLIVIA-7 Assessment 94157 ([id number]) PHQ-9 - 26677 - PHQ-9 Billing: Yes ([id number]) Time Spent (min) 33 Assessment & Plan Assessment & Plan (1) Physical exam: Code(s): Z00.00 - Encounter for general adult medical examination without abnormal findings Category: Medical (2) Class 2 obesity with body mass index (BMI) of 38.0 to 38.9 in adult: Code(s): E66.812 - Obesity, class 2; Z68.38 - Body mass index [BMI] 38.0-38.9, adult Category: Medical (3) Mild recurrent major depression: Code(s): F33.0 - Major depressive disorder, recurrent, mild Category: Medical (4) Essential hypertension: Code(s): I10 - Essential (primary) hypertension Category: Medical Plan - Essential Hypertension: Continue current regimen with Losartan 25mg and monitor blood pressure in three weeks by nurse navigator. Encourage regular physical activity. - Hyperlipidemia: Continue atorvastatin 10mg. Consider re-evaluation of dose if future laboratory tests indicate changes. - Anxiety and Depression: Maintain bupropion 150mg daily. Consider dosage increase after two weeks if symptoms persist, avoiding simultaneous medication changes. - Migraine: Continue sumatriptan 50mg as needed for migraines. - Insomnia: Maintain trazodone for sleep management. - Allergy Management: Avoid known allergens and reassess with truck striker as needed. - Continue health maintenance and routine screenings as scheduled. Patient was informed and verbally consented to the use of an ambient scribe for clinic note documentation during this visit. During the visit, I discussed with the patient management strategies for her hypertension, hyperlipidemia, anxiety, depression, and migraines. We covered the importance of maintaining her prescribed medication regimens and the potential side effects and benefits of each. Specifically, the possibility of starting Wegovy for combined weight management and cardiovascular protection was discussed, including potential side effects such as pancreatitis and thyroid nodules observed in rats. We emphasized incremental dosage adjustments to mitigate adverse effects. Additionally, the need for individual medication evaluation before increasing bupropion was highlighted to prevent exacerbation of symptoms. Orders: Orders Vitamin D 25-OH Total Today E55.9 - Vitamin D deficiency, unspecified Influenza [id number] Immunization Today Z23 - Encounter for immunization Lipid Panel Today E78.5 - Hyperlipidemia, unspecified Comprehensive [place]. Panel Fast Today Z00.00 - Encounter for general adult medical examination without abnormal findings Medications: New bupropion HCl XL 300 mg PO QAM 90 tabs 1RF 90 days semaglutide (weight loss) (Wegovy) administer weeks 1 through 4 of therapy 0.25 mg (0.5 mL) subcut QWEEK 2 mL 0RF 4 weeks E66.812 - Obesity, class 2, E78.00 - Pure hypercholesterolemia, unspecified, I10 - Essential (primary) hypertension, Z68.38 - Body mass index [BMI] 38.0-38.9, adult Discontinued bupropion HCl XL Discontinued Reason: Patient Completed Course 150 mg PO QAM 90 days 90 tabs 1RF Patient Instructions: - Continue current medications as prescribed. - Monitor blood pressure regularly and report significant changes. - Maintain heart-healthy diet and regular physical activity. - Re-evaluate in two weeks to assess mental health status and consider medication adjustments. - Avoid known allergens diligently. - Return for scheduled screenings and follow-up appointments.
== END 2024-06-30 17:09 | disposition home or self-care (01) ==
PROVIDERS: PCP Internal Medicine; Visit Provider Internal Medicine
DX: Z00.00 Encounter for general adult medical examination without abnormal findings (principal); E66.812 Obesity, class 2; Z68.38 Body mass index [BMI] 38.0-38.9, adult; F33.0 Major depressive disorder, recurrent, mild; I10 Essential (primary) hypertension; Z23 Encounter for immunization

== ENCOUNTER → 2024-06-30 15:46 | Outpatient (BNVA) | payer OTHER, SELFPAY | PROVIDERS: PCP Internal Medicine; Visit Provider Internal Medicine | DX: Z00.00 Encounter for general adult medical examination without abnormal findings (principal); E66.812 Obesity, class 2; Z68.38 Body mass index [BMI] 38.0-38.9, adult; F33.0 Major depressive disorder, recurrent, mild; I10 Essential (primary) hypertension; E78.5 Hyperlipidemia, unspecified; F41.9 Anxiety disorder, unspecified; G43.909 Migraine, unspecified, not intractable, without status migrainosus; G47.00 Insomnia, unspecified; Z79.899 Other long term (current) drug therapy | CPT/HCPCS: 96127 ==

== ENCOUNTER 2024-07-02 06:05 | Outpatient (REF) | payer OTHER, SELFPAY ==
[2024-07-02 08:13] LABS: Alanine Aminotransferase 31 U/L (0-31); Albumin Level 4.1 g/dL (3.5-5.0); Alkaline Phosphatase 73 U/L (39-117); Anion Gap 10 (12-20); Aspartate Amino Transferase 22 U/L (5-31); Bilirubin Total 0.4 mg/dL (0.0-1.0); Blood Urea Nitrogen 10 mg/dL (9-16); Calcium 9.4 mg/dL (8.4-10.2); Carbon Dioxide 24 mmol/L (22-29); Chloride 109 mmol/L (96-108); Cholesterol 148 mg/dL (<200); Estimated Glomerular Filt Rate > 60; Glucose Fasting 106 mg/dL (60-99); HDL Cholesterol 44 mg/dL (>40); LDL Cholesterol Calculated 89 mg/dL (<100); Potassium 4.2 mmol/L (3.3-5.1); Sodium 139 mmol/L (135-145); Total Protein 6.9 g/dL (6.5-8.0); Triglycerides 78 mg/dL (<150)
[2024-07-02 08:29] LABS: Vitamin D 25-OH Total 22.6 ng/mL (>30)
== END 2024-07-02 06:06 | disposition home or self-care (01) ==
LOC: HO.LAB 06:05
PROVIDERS: PCP Internal Medicine; Visit Provider Internal Medicine
DX: Z00.00 Encounter for general adult medical examination without abnormal findings (principal); E55.9 Vitamin D deficiency, unspecified; E78.5 Hyperlipidemia, unspecified
CPT/HCPCS: 36415; 80053; 80061; 82306

== ENCOUNTER → 2024-07-29 08:43 | Outpatient (BNVA) | payer OTHER, SELFPAY | PROVIDERS: PCP Internal Medicine ==

== ENCOUNTER → 2024-08-02 12:39 | Outpatient (BNV) | payer OTHER, SELFPAY | PROVIDERS: Emergency Provider Emergency Medicine; PCP Internal Medicine; Visit Provider Internal Medicine | DX: R94.31 Abnormal electrocardiogram [ECG] [EKG] (principal) | CPT/HCPCS: 93010 ==

== ENCOUNTER → 2024-08-02 12:39 | Outpatient (BNV) | payer OTHER, SELFPAY | PROVIDERS: PCP Internal Medicine; Visit Provider Radiology Diagnostic Radiology | DX: R51.9 Headache, unspecified (principal) | CPT/HCPCS: 70450 ==

== ENCOUNTER → 2024-08-12 14:34 | Outpatient (BNVA) | payer OTHER, SELFPAY | PROVIDERS: PCP Internal Medicine ==

== ENCOUNTER 2024-08-24 08:50 | Outpatient (AMB) | payer OTHER, SELFPAY ==
[2024-08-24 08:55] VITALS: BP 138/87; PULSE 95; O2SAT 99; BMI 39.2
--- NOTE | 2024-08-24 08:55 | A.OFFVIS_ITS ---
Vital Signs 08/24/24 08:55 Height 4 ft 11 in Weight 194 lb 5.019 oz BMI 39.2 BP 138/87 Blood Pressure Location Lt brachial Position Sitting Pulse 95 Pulse Source Doppler Pulse Oximetry (%) 99 Oxygen Delivery Method Room Air Intake Visit Reasons: productive cough/ congestion Allergies pineapple [PINEAPPLE] Allergy (Severe, Verified 08/24/24 09:01) SWELLING shellfish derived [SHELLFISH DERIVED] Allergy (Severe, Verified 08/24/24 09:01) ANAPHYLAXIS animal dander [PET DANDER] Allergy (Intermediate, Verified 08/24/24 09:01) ITCHING morphine [Morphine] Allergy (Intermediate, Verified 08/24/24 09:01) ITCHING NSAIDS (Non-Steroidal Anti-Inflamma [NSAIDS (NON-STEROIDAL ANTI-INFLAMMA] Allergy (Intermediate, Verified 08/24/24 09:01) BLEEDING sulfamethoxazole [From Bactrim] Allergy (Intermediate, Verified 08/24/24 09:01) RASH trimethoprim [From Bactrim] Allergy (Intermediate, Verified 08/24/24 09:01) RASH HPI HPI productive cough/ congestion: Details: 48-year-old lady, nonsmoker, with underlying history of asthma diagnosed when she was a child, now followed for underlying moderate to severe persistent allergic asthma and multiple environmental allergies.? She continues on Advair and albuterol MDI with good baseline control of her symptoms. She denies any recent exacerbations. After the last office visit patient stopped her Xolair as she felt that she has been doing well. Today she presents for sick visit complaining of acute allergic symptoms of to be exposed to a dog 3-4 days prior with significant nasal congestion and sore throat, today also with cough productive of greenish sputum, but no wheezing. [facility] Medical History Migraine Pure hypercholesterolemia Morbid obesity with BMI of 40.0-44.9, adult Mild recurrent major depression Asthma exacerbation Contact with and (suspected) exposure to other viral communicable diseases Hypovitaminosis D Insomnia Depression with anxiety Moderate asthma Essential hypertension Pneumonia Surgical History History of endometrial ablation History of esophagogastroduodenoscopy (EGD) History of hysterectomy Family History Mother Hypertension Father Hypertension Mental health disorder Maternal Grandmother Colon cancer Other Family history of rheumatoid arthritis Social History Housing: House Alcohol intake: never Patient Tobacco Use Status: Never used Tobacco e-Cigarette/Vaping Use: Never Used Second Hand Smoke Exposure: No service: No Current occupational status: employed Current occupation: [employer] [place] [employer] [place], rt hand Current occupational exposures/hazards: No Cognitive needs: No Hearing needs: No Vision needs: Yes (Glasses) Review of Systems Const Denies daytime sleepiness, Denies excessive sweating, Denies fatigue, Denies fever(s), Denies lethargy, Denies malaise, Denies night sweats, Denies snoring and Denies weight loss Eyes Denies blurry vision and Denies itchy eyes ENT Reports nasal congestion, Reports post nasal drip, Denies sinus pain, Denies sinus pressure and Denies other ( Thrush) Card Denies chest pain, Denies pedal edema, Denies dyspnea, Denies orthopnea and Denies paroxysmal nocturnal dyspnea Resp Reports cough, Denies hemoptysis, Reports excessive phlegm production, Denies dyspnea, Denies snoring and Denies wheezing GI Denies abdominal pain and Denies heartburn Musc Denies myalgias, Denies arthralgias and Denies joint swelling Skin/Breast Denies rash Neuro Denies memory loss and Denies seizure-like activity Psych Denies abnormal sleep pattern, Denies anxiety and Denies memory loss Endo Denies excessive sweating, Denies fatigue and Denies heat intolerance Lon/Lymph Denies easy bruising Aller/Immun Denies itchy eyes, Denies seasonal rhinorrhea and Denies wheezing Physical Exam Vital Signs: Last Vital Signs Pulse 95 08/24/24 08:55 BP 138/87 08/24/24 08:55 Pulse Ox 99 08/24/24 08:55 Oxygen Delivery Method Room Air 08/24/24 08:55 BMI result Body Mass Index 39.2 Const General: no acute distress and alert Nutritional Appearance: not obese Orientation/consciousness: Other orientation findings ( oriented) HEENT Head: Yes atraumatic Eyes General: appearance normal, both eyes and all related structures Sclerae: sclerae normal EOM: EOMs intact bilaterally Neck Neck: Yes supple Lymphatic: no lymphadenopathy noted Resp Effort & Inspection: normal respiratory effort and no use of accessory muscles Auscultation: clear to auscultation bilaterally Cardio Rate: regular rate Rhythm: regular rhythm Heart sounds: no gallops, no murmurs and no rubs Skin General skin exam: other ( warm) Extrem General: No clubbing, No cyanosis and No edema Assessment & Plan Assessment & Plan (1) Severe persistent allergic asthma: Code(s): J45.50 - Severe persistent asthma, uncomplicated Category: Medical Plan: Baseline controlled on Advair and albuterol MDI. Continue current regimen. Patient stopped Xolair secondary to his symptoms being well controlled may require Xolair re-initiation. (2) Environmental allergies: Code(s): Z91.09 - Other allergy status, other than to drugs and biological substances Category: Medical Plan: Now with worsening symptoms after exposure to a dog, may require Xolair re- initiation. (3) Acute sinusitis: Code(s): J01.90 - Acute sinusitis, unspecified Category: Medical Plan: Will treat with a course of doxycycline. Medications: New doxycycline monohydrate 100 mg PO BID 20 caps 0RF Coding Level of Care Code Est Pt Level 4 (18331) Diagnoses Severe persistent allergic asthma J45.50 Environmental allergies Z91.09 Acute sinusitis J01.90
--- OUTSIDE RECORDS SUMMARY | 2024-08-24 09:10 | XMS_ITS | Clinical Summary ---
Author Organization [facility] Address [address] [place] [address] Phone Care Team Providers Care Manager [employer] Name Role Phone Yoana Howe MD Primary Care Provider [phone] Allergies Active Allergy Reactions Criticality Noted Date Comments Latex Other (see comments) 01/11/2021 Lisinopril Other (see comments) Medium 01/11/2021 Sulfamethoxazole-Trimethoprim Other (see comments) 01/11/2021 Medications cholecalciferol (VITAMIN D-3) 25 MCG (1000 UT) capsule Take 3 capsules by mouth 1 (one) time each day Active citalopram (CeleXA) 20 MG tablet Take 1 tablet by mouth 1 (one) time each day Active Advair Diskus 250-50 MCG/DOSE diskus inhaler INHALE 1 PUFF BY MOUTH 2 TIMES A DAY 11/07/2020 Active atorvastatin (LIPITOR) 10 MG tablet 04/26/2021 Active buPROPion XL (WELLBUTRIN XL) 150 MG 24 hr tablet Take 150 mg by mouth 1 (one) time each day in the morning 12/01/2021 Active SUMAtriptan (IMITREX) 50 MG tablet Take 50 mg by mouth 1 (one) time each day 12/29/2021 Active traZODone (DESYREL) 50 MG tablet Take 50 mg by mouth at night if needed 12/23/2021 Active verapamil SR (CALAN-SR) 180 MG CR tablet Take 1 tablet (180 mg total) by mouth every night Do not crush or chew. 30 tablet 11 07/08/2022 Active Active Problems Problem Noted Date Diagnosed Date Hypertensive disorder 01/11/2021 Recurrent urinary tract infection 01/11/2021 Family History Medical History Relation Comments Hypertension Child Diabetes Father Hypertension Father Hypertension Mother Relation Status Comments Child Father Unknown Mother Unknown Social History Tobacco Use Types Packs/Day Years Used Date Smoking Tobacco: Never Smokeless Tobacco: Never Tobacco Cessation:Counseling Given: Not Answered Alcohol Use Standard Drinks/Week Comments No 0 (1 standard drink = 0.6 oz pur e alcohol) Comments Unknown Sex and Gender Information Value Date Recorded Sex Assigned at Not on file Legal Sex Female 4:54 PM EST Gender Identity Not on file Sexual Orientation Not on file Last Filed Vital Signs Vital Sign Reading Time Taken Comments Blood Pressure 140/90 07/08/2022 3:39 PM EST Pulse 89 07/08/2022 3:39 PM EST Temperature - - Respiratory Rate - - Oxygen Saturation 95% 07/08/2022 3:39 PM EST Inhaled Oxygen Concentration - - Weight 85.8 kg (189 lb 3.2 oz) 07/08/2022 3:39 P M EST Height 149.9 cm (4' 11 ) 07/08/2019 12:00 PM EST Body Mass Index 38.21 07/08/2019 12:00 PM EST Plan of Treatment Health Maintenance Due Date Last Done Comments Pneumococcal Vaccine: Pediat rics (0 to 5 Years) and At-Risk Patients (6 to 64 Years) (1 of 2 - PCV) 12/26/1983 Hepatitis B Vaccine (1 of 3 - 19+ 3-dose series) 12/25 Influenza Vaccine (#1) 2024 Insurance COMPREHENSIVE BENEFITS COMPREHENSIVE BENEFITS Care Teams Manager [employer] Relationship Specialty Start Date End Date Yoana Howe MD [address] [place], [place] PCP - General 08/07/20
== END 2024-08-24 09:11 | disposition home or self-care (01) ==
PROVIDERS: PCP Internal Medicine; Visit Provider Internal Medicine Pulmonary Disease
DX: J45.50 Severe persistent asthma, uncomplicated (principal); Z91.09 Other allergy status, other than to drugs and biological substances; J01.90 Acute sinusitis, unspecified
CPT/HCPCS: 99214

== ENCOUNTER → 2024-08-24 08:50 | Outpatient (BNVA) | payer OTHER, SELFPAY | PROVIDERS: PCP Internal Medicine; Visit Provider Internal Medicine Pulmonary Disease ==

== ENCOUNTER 2024-08-31 08:25 | Outpatient (REF) | payer OTHER, SELFPAY ==
--- OUTSIDE RECORDS SUMMARY | 2024-08-31 10:24 | XMS_ITS | Clinical Summary ---
Author Organization [facility] Address [address] [place] [address] Phone Care Team Providers Care Dish Technician Name Role Phone Yoana Howe MD Primary Care Provider [phone] Allergies Active Allergy Reactions Criticality Noted Date [...] Insurance COMPREHENSIVE BENEFITS COMPREHENSIVE BENEFITS Care Teams Dish Technician Relationship Specialty Start Date End Date Yoana Howe MD [address] [place], [place] PCP - General 08/07/20
[2024-08-31 10:34] LABS: Influenza A PCR NEGATIVE (Negative); Influenza B PCR NEGATIVE (Negative); Resp Syncy Virus RNA Qual PCR NEGATIVE (Negative); SARS COV2 PCR INHOUSE NEGATIVE (Negative)
== END 2024-08-31 08:26 | disposition home or self-care (01) ==
LOC: HO.LAB 08:25
PROVIDERS: PCP Internal Medicine
DX: R05.1 Acute cough (principal); J39.9 Disease of upper respiratory tract, unspecified
CPT/HCPCS: 0241U

== ENCOUNTER 2024-08-31 08:25 | Outpatient (AMB) | payer OTHER, SELFPAY ==
--- NOTE | 2024-08-31 08:26 | MHC.PC.OV ---
Intake Visit Reasons: body aches, dry cough, vomiting, sinus infection Intake Note: Patient is here to follow up on body aches, dry cough, vomiting and sinus infection. Nremt Required: No Fountain Pen Nibs Inspector: Not Required per policy Accompanied by: Self / Same As Patient Allergies pineapple [PINEAPPLE] Allergy (Severe, Verified 09/15/24 15:19) SWELLING shellfish derived [SHELLFISH DERIVED] Allergy (Severe, Verified 09/15/24 15:19) ANAPHYLAXIS animal dander [PET DANDER] Allergy (Intermediate, Verified 09/15/24 15:19) ITCHING morphine [Morphine] Allergy (Intermediate, Verified 09/15/24 15:19) ITCHING NSAIDS (Non-Steroidal Anti-Inflamma [NSAIDS (NON-STEROIDAL ANTI-INFLAMMA] Allergy (Intermediate, Verified 09/15/24 15:19) BLEEDING sulfamethoxazole [From Bactrim] Allergy (Intermediate, Verified 09/15/24 15:19) RASH trimethoprim [From Bactrim] Allergy (Intermediate, Verified 09/15/24 15:19) RASH Medication List - Last Reconciled 08/31/24 by ROSANA Valenica atorvastatin 10 mg PO BEDTIME 90 days bisacodyl (Dulcolax (bisacodyl)) 10 mg TN DAILY PRN bupropion HCl XL 150 mg PO QAM 90 days calcium polycarbophil (Fiber-Lax) 1,250 mg (2 x 625 mg) PO DAILY cholecalciferol (vitamin D3) 50 mcg PO DAILY 90 days docusate sodium (Colace) 200 mg (2 x 100 mg) PO BEDTIME doxycycline monohydrate 100 mg PO BID famotidine 40 mg PO DAILY fluticasone propion-salmeterol 250-50 mcg/dose (Advair Diskus) 1 ea PO BID guaifenesin ER (Mucinex) 600 mg PO Q12H PRN hydrochlorothiazide 12.5 mg PO DAILY ipratropium bromide 2 sprays intranasal TID-QID PRN losartan 100 mg PO DAILY 90 days prednisone 10 mg PO DIRECTED semaglutide (weight loss) (Wegovy) 0.5 mg (0.5 mL) subcut QWEEK 4 weeks semaglutide (weight loss) (Wegovy) 0.25 mg (0.5 mL) subcut QWEEK 4 weeks sodium chloride 0.65% (Saline Nasal Mist) 2 sprays intranasal Q4H PRN sumatriptan succinate 50 mg PO DAILY PRN trazodone 100 mg (2 x 50 mg) PO BEDTIME PRN 90 days verapamil ER 240 mg PO DAILY Tobacco use date assessed: 08/31/24 Dental Screening Dental Screen Date: 08/31/24 Did you have a dental visit in the last 12 months?: Yes Did you have a dental problem in the last 6 months where you did not have access to dental care?: No Was dental information given to patient?: Patient has dentist HPI body aches, dry cough, vomiting, sinus infection HPI Details This is a medically necessary visit as the patient would typically be seen in the office, however, the patient is unable to come in the office so the visit was converted to an audiovisual, telephone visit format with patient's consent and request. Patient understands that this visit was in place of an in person visit and is aware of the risks of communicating via phone/computer and verbally consents. Patient reports that August 24 she has started having dry cough, nasal congestion and sinus pressure She went to the farm crew member and was placed on doxycycline Reports that she started having sore throat and went back to the farm crew member last Friday She was given a nose spray and was told to continue her antibiotics Reports that on Friday she started having diarrhea, which somewhat subsided And yesterday she felt like she was unable to get out of bed Reports going to work this morning and was sent home Patient reports that she is still having the nasal congestion and headaches Reports that she has not been taking any medication [id number] because she has a blood pressure and she is scared that this my increase with [id number] medications Patient reports using her asthma inhalers, she denies wheezing, denies shortness of breath Reports that her throat is full of mucus especially in the mornings and her cough is worse at night Patient reports that she gets bronchitis every year and she just wants to feel better Patient reports negative home COVID tests will send the patient for a respiratory panel. Will start the patient and prednisone tapering and order Mucinex Encouraged patient to continue the antibiotics until completed into increase p.o. fluids [facility] Medical History Migraine Pure hypercholesterolemia Morbid obesity with BMI of 40.0-44.9, adult Mild recurrent major depression Asthma exacerbation Contact with and (suspected) exposure to other viral communicable diseases Hypovitaminosis D Insomnia Depression with anxiety Moderate asthma Essential hypertension Pneumonia Surgical History History of endometrial ablation History of esophagogastroduodenoscopy (EGD) History of hysterectomy Family History Mother Hypertension Father Hypertension Mental health disorder Maternal Grandmother Colon cancer Other Family history of rheumatoid arthritis Social History Housing: House Alcohol intake: never Patient Tobacco Use Status: Never used Tobacco e-Cigarette/Vaping Use: Never Used Second Hand Smoke Exposure: No service: No Current occupational status: employed Current occupation: [employer],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 1. Little interest or pleasure in doing things: not at all 2. Feeling down, depressed, or hopeless: not at all 3. Trouble falling or staying asleep, or sleeping too much: not at all 4. Feeling tired or having little energy: not at all 5. Poor appetite or overeating: not at all 6. Feeling bad about yourself - or that you are a failure or have let yourself or your family down: not at all 7. Trouble concentrating on things, such as reading the newspaper or watching television: not at all 8. Moving or speaking so slowly that other people could have noticed. Or the opposite - being so fidgety or restless that you have been moving around a lot more than usual: not at all 9. Thoughts that you would be better off or of hurting yourself in some way: not at all Total score: 0 Depression Screening Interpretation: Negative Depression Screening Done: Yes 10421 - PHQ-9 Billing: Yes Source: Developed by Drs. Rohan Gil, Alexandra Cheng, Edd Noonan and colleagues, with an educational michele from [employer]. Thrive Questionnaire Date Thrive assessed: 08/31/24 I am a: Patient What is your living situation today?: I have a steady place to live Within the past 12 months, did the food you bought not last and you didn't have the money to get more?: Never true Within the past 12 months, did you worry whether your food would run out before you got money to buy more?: Never true Do you have trouble paying for medicines?: No Do you have trouble getting transportation to medical appointments?: No Do you have trouble paying your heating and electricity bill?: No Do you have trouble taking care of your child, family member or friend?: No Do you have trouble with day-to-day activities such as bathing, preparing meals, shopping, managing finances, etc.?: No Are you currently unemployed and looking for a job?: No Are you interested in more education?: No Please select the resources that you would like help with: None Currently or been in a relationship where the following occur: No concerns reported THRIVE Score: 0 AUDIT C Alcohol Use Questionnaire (AUDIT-C) 1. How often do you have a drink containing alcohol?: Never Total Score: 0 OLIVIA-7 AMB Questionnaire OLIVIA-7 Date OLIVIA - 7 assessed: 08/31/24 Feeling nervous, anxious, or on edge: 0 = Not at all Not being able to stop or control worryin = Not at all Worrying too much about different things: 0 = Not at all Trouble relaxin = Not at all Being so restless that it is hard to sit still: 0 = Not at all Becoming easily annoyed or irritable: 0 = Not at all Feeling afraid as if something awful might happen: 0 = Not at all Total OLIVIA-7 score (0-4 normal; 5-9 mild; 10-14 moderate; 15-21 severe): 0 Source: Developed by Drs. Rohan Gil, Alexandra Cheng, Edd Noonan and colleagues, with an educational michele from [employer]. OLIVIA-7 Assessment Billing OLIVIA-7 Assessment Tool: OLIVIA-7 Assessment 12751 Review of Systems Const Details: Denies chills, Denies fatigue, Denies fever(s), + intermittent headache(s) and Denies weakness HEENT Denies change in vision, Denies dizziness, Denies hearing loss, + nasal congestion, + sinus pressure and + sore throat Card Denies chest pain, Denies lightheadedness, Denies dyspnea and Denies other (palpitations) Resp + productive cough, Denies dyspnea and Denies wheezing GI Denies abdominal pain, Denies melena, Denies hematochezia, Denies change in bowel habits, Denies dyspepsia and Denies nausea Other: Reports was having diarrhea since had subsided Denies hematuria and Denies dysuria Musc Denies abnormal gait, Denies myalgias, Denies arthralgias, Denies numbness and Denies tingling Physical exam (Primary Care) Tobacco/Smoking Status: Tobacco use Status Tobacco use date assessed 08/31/24 08/31/24 08:29 Patient Tobacco Use Status Never used Tobacco 08/31/24 08:29 Tobacco use type 08/31/24 07:33 e-Cigarette/Vaping Use Never Used 08/31/24 08:29 PHQ-9: PHQ-9 Score PHQ-9: Total score 0 08/31/24 10:49 Depression Screening Interpretation: Negative Thrive Assessment: Date of Thrive Assessment Date Thrive assessed 08/31/24 08/31/24 08:29 Currently or been in a relationship where the following occur: No concerns reported Const Other: Telemedicine visit with real time audio video Received verbal consent given by patient for today's visit via telemedicine --unable to do physical exam due to the type of visit Telehealth Telehealth Telehealth Platform: Telephone Location of provider rendering services: practice address Location of patient: address on file Patient Identification confirmed using: Name, : Yes Telehealth method: voice only Patient verbally consented to treatment: Yes Patient verbally consented to billing insurance company: Yes Patient informed of any privacy concerns related to visit: Yes Minutes spent on Phone/Video with Pt.: 25 Coding Level of Care Code Tele Est Pt Level 3 (22197) Diagnoses Upper respiratory disease J39.9 Productive cough R05.8 Nasal congestion R09.81 Additional Codes OLIVIA-7 Assessment Billing - OLIVIA-7 Assessment Tool: OLIVIA-7 Assessment 90564 ([id number]) PHQ-9 - 60871 - PHQ-9 Billing: Yes ([id number]) Time Spent (min) 25 Assessment & Plan Assessment & Plan (1) Upper respiratory disease: Code(s): J39.9 - Disease of upper respiratory tract, unspecified Category: Medical Plan: Continue doxycycline until complete, continue saline nose spray q.4 hours as needed Start prednisone taper and Mucinex Respiratory panel ordered (2) Productive cough: Code(s): R05.8 - Other specified cough Category: Medical Plan: Take Mucinex as needed (3) Nasal congestion: Code(s): R09.81 - Nasal congestion Category: Medical Plan: Continue saline nasal spray q.4 hours as needed Plan Follow up with PCP as scheduled in December 2024 Orders: Orders SARS-CoV2/FLU/RSV 08/31/24 J39.9 - Disease of upper respiratory tract, unspecified Medications: New prednisone see taper instructions 4 tabs x 2 days, 3 tabs x 2 days, 2 tabs x2 dsys, 1 tab x 2 days = 20 tabs x 8 days 10 mg PO DIRECTED 20 tabs 0RF guaifenesin ER (Mucinex) 600 mg PO Q12H PRN 30 tabs 0RF congestion
--- OUTSIDE RECORDS SUMMARY | 2024-08-31 08:41 | XMS_ITS | Clinical Summary ---
Author Organization [facility] Address [address] [place] [address] Phone Care Team Providers Care Afloat Cryptologic Manager Name Role Phone Yoana Howe MD Primary Care Provider [phone] Allergies Active Allergy Reactions Criticality Noted Date [...] Insurance COMPREHENSIVE BENEFITS COMPREHENSIVE BENEFITS Care Teams Afloat Cryptologic Manager Relationship Specialty Start Date End Date Yoana Howe MD [address] [place], [place] PCP - General 08/07/20
== END 2024-08-31 09:18 | disposition home or self-care (01) ==
LOC: HO.HMCH 08:25
PROVIDERS: PCP Internal Medicine
DX: J39.9 Disease of upper respiratory tract, unspecified (principal); R05.8 Other specified cough; R09.81 Nasal congestion

== ENCOUNTER → 2024-09-15 14:31 | Outpatient (BNVA) | payer OTHER, SELFPAY | PROVIDERS: PCP Internal Medicine; Visit Provider Physician Assistant Surgical ==

== ENCOUNTER 2024-11-20 07:20 | Outpatient (REF) | payer OTHER, SELFPAY | END 2024-11-20 07:21 | disposition home or self-care (01) | LOC: HO.MAMMO 07:20 | PROVIDERS: PCP Internal Medicine; Visit Provider Internal Medicine | DX: Z12.31 Encounter for screening mammogram for malignant neoplasm of breast (principal) | CPT/HCPCS: 77063; 77067 ==

== ENCOUNTER → 2024-11-20 07:30 | Outpatient (BNV) | payer OTHER, SELFPAY | PROVIDERS: PCP Internal Medicine; Visit Provider Internal Medicine | DX: Z12.31 Encounter for screening mammogram for malignant neoplasm of breast (principal) | CPT/HCPCS: 77063; 77067 ==

== ENCOUNTER 2024-11-22 11:52 | Outpatient (AMB) | payer OTHER, SELFPAY ==
--- NOTE | 2024-11-22 11:55 | MHC.OFFVIS ---
Vital Signs 11/22/24 12:13 Height 4 ft 11 in Weight 194 lb BMI 39.2 BP 142/85 H Blood Pressure Location Lt brachial Position Sitting Pulse 84 Pulse Oximetry (%) 98 Oxygen Delivery Method Room Air Intake Visit Reasons: Bloating in the stomach Intake Note: Patient follow up for abdominal bloating. Patient cc: abdominal bloating, upper abdominal pain with a little cyst that is bather her a lot, acid reflex and denies any other GI issues. Plastering Supervisor Required: No Accompanied by: Self / Same As Patient Allergies pineapple [PINEAPPLE] Allergy (Severe, Verified 11/22/24 11:55) SWELLING shellfish derived [SHELLFISH DERIVED] Allergy (Severe, Verified 11/22/24 11:55) ANAPHYLAXIS animal dander [PET DANDER] Allergy (Intermediate, Verified 11/22/24 11:55) ITCHING morphine [Morphine] Allergy (Intermediate, Verified 11/22/24 11:55) ITCHING NSAIDS (Non-Steroidal Anti-Inflamma [NSAIDS (NON-STEROIDAL ANTI-INFLAMMA] Allergy (Intermediate, Verified 11/22/24 11:55) BLEEDING sulfamethoxazole [From Bactrim] Allergy (Intermediate, Verified 11/22/24 11:55) RASH trimethoprim [From Bactrim] Allergy (Intermediate, Verified 11/22/24 11:55) RASH HPI HPI Bloating in the stomach: Details: A 47 y/o female f/u RECAP: EGD/ colon-for acid reflux, rectal bleeding, constipation and positive Cologuard Famotidine with fairly good response taking p.r.n. Endoscopy Findings: gastritis esophagitis Colonoscopy Findings: internal hemorrhoids non specific mucosal changes cecum Path: duodenitis INTERIM: no nausea or vomiting mild epigastric pain, 5/10 worse with fried, greasy foods denies diarrhea or constipation she is not on zepbound as not covered by insurance stool H pylori neg in past denies taking nsaids EXAM: GENERAL: The patient is well developed and nontoxic. VITAL SIGNS:see workflow HEENT: Nonicteric sclerae, PERRLA, EOMI. Oropharynx clear. Moist mucous membranes. Conjunctivae appear well perfused. No thyroid mass. CHEST: Chest wall is nontender. HEART: Regular rate and rhythm without murmurs. LUNGS: Clear to auscultation bilaterally. ABDOMEN: Soft, positive bowel sounds, tender small lipoma noted, no organomegaly.no flank tenderness SKIN: No rash, no excessive bruising, petechiae, or purpura. NEUROLOGIC: Cranial nerves II-XII intact without motor/sensory deficit. Psych: normal affect A/P: 1/ epigastric pain, duodenitis in the past PLAN: 1/ trial of capsaicin for probable inflammed lipoma--if ongoing then can refer for trigger injection vs surgical assessment 2/ h pylori breath test on friday, stop pepcid for 3 d 3/ change to PPI thereafter PFSH Medical History Migraine Pure hypercholesterolemia Morbid obesity with BMI of 40.0-44.9, adult Mild recurrent major depression Asthma exacerbation Contact with and (suspected) exposure to other viral communicable diseases Hypovitaminosis D Insomnia Depression with anxiety Moderate asthma Essential hypertension Pneumonia Surgical History History of endometrial ablation History of esophagogastroduodenoscopy (EGD) History of hysterectomy Family History Mother Hypertension Father Hypertension Mental health disorder Maternal Grandmother Colon cancer Other Family history of rheumatoid arthritis Social History Housing: House Alcohol intake: never Patient Tobacco Use Status: Never used Tobacco e-Cigarette/Vaping Use: Never Used Second Hand Smoke Exposure: No service: No Current occupational status: employed Current occupation: [employer], rt hand Current occupational exposures/hazards: No Cognitive needs: No Hearing needs: No Vision needs: Yes (Glasses) Physical Exam Vital Signs: Last Vital Signs Pulse 84 11/22/24 12:13 BP 142/85 H 11/22/24 12:13 Pulse Ox 98 11/22/24 12:13 Oxygen Delivery Method Room Air 11/22/24 12:13 BMI result Body Mass Index 39.2 Assessment & Plan Assessment & Plan (1) Hx of gastritis: Comment: Very pleasant Code(s): Z87.19 - Personal history of other diseases of the digestive system Category: Medical Plan: as above Medications: New pantoprazole 20 mg PO DAILY 30 days 60 tabs 2RF capsaicin 0.025% do not wash area for at least 30 min after application 1 appl topical BID 50 grams 0RF Discontinued famotidine Discontinued Reason: Doctor's Order 40 mg PO DAILY 30 caps 0RF Coding Level of Care Code Est Pt Level 3 (99382) Diagnoses Hx of gastritis Z87.19
[2024-11-22 12:13] VITALS: BP 142/85; PULSE 84; O2SAT 98; BMI 39.2
--- OUTSIDE RECORDS SUMMARY | 2024-11-22 14:13 | XMS_ITS | Clinical Summary ---
Author Organization [facility] Address [address] [place] [address] Phone Care Team Providers Care Central Supply Manager Name Role Phone Yoana Howe MD Primary Care Provider [phone] Allergies Active Allergy Reactions Criticality Noted Date [...] Health Maintenance Due Date Last Done Comments Hepatitis B Vaccine (1 of 3 - 19+ 3-dose series) 12/25 Pneumococcal Vaccine: Peds ( 0 to 5 Years) and At-Risk Patients (6 to 49 Years) (1 of 2 - PCV) 1996 Influenza Vaccine (Season Ended) 2025 Insurance Comprehensive Benefits Comprehensive Benefits Care Teams Central Supply Manager Relationship Specialty Start Date End Date Yoana Howe MD [address] [place], [place] PCP - General 08/07/20
== END 2024-11-22 12:38 | disposition home or self-care (01) ==
LOC: HO.HGI 11:53
PROVIDERS: PCP Internal Medicine; Visit Provider Internal Medicine Gastroenterology
DX: Z87.19 Personal history of other diseases of the digestive system (principal)
CPT/HCPCS: 99213

== ENCOUNTER 2024-11-26 11:48 | Outpatient (AMB) | payer OTHER, SELFPAY ==
--- NOTE | 2024-11-26 12:31 | AM.OFFVISNUR ---
Intake Visit Reasons: h pylori breath Allergies pineapple [PINEAPPLE] Allergy (Severe, Verified 11/22/24 11:55) SWELLING shellfish derived [SHELLFISH DERIVED] Allergy (Severe, Verified 11/22/24 11:55) ANAPHYLAXIS animal dander [PET DANDER] Allergy (Intermediate, Verified 11/22/24 11:55) ITCHING morphine [Morphine] Allergy (Intermediate, Verified 11/22/24 11:55) ITCHING NSAIDS (Non-Steroidal Anti-Inflamma [NSAIDS (NON-STEROIDAL ANTI-INFLAMMA] Allergy (Intermediate, Verified 11/22/24 11:55) BLEEDING sulfamethoxazole [From Bactrim] Allergy (Intermediate, Verified 11/22/24 11:55) RASH trimethoprim [From Bactrim] Allergy (Intermediate, Verified 11/22/24 11:55) RASH Nursing Note Patient presents for collection of H Pylori breath test. Patient has been fasting for 1 hour (nothing to eat, drink, no chewing gum or smoking) has not taken any antacid medication for at least 2 weeks and has no allergies to artificial sweeteners.?? Assessment & Plan Assessment & Plan (1) Hx of gastritis: Comment: Very pleasant Code(s): Z87.19 - Personal history of other diseases of the digestive system Category: Medical Plan Patient presents for collection of H Pylori breath test. Patient has been fasting for 1 hour (nothing to eat, drink, no chewing gum or smoking) has not taken any antacid medication for at least 2 weeks and has no allergies to artificial sweeteners.???This test checks for an overgrowth of bacteria in your stomach. We all have bacteria but some may have more than others. It is treatable. if the test comes back negative there is nothing else to do. If the test result is positive we will treat you with 2 antibiotics and a medication to decrease the acid in your stomach (PPI) for 2 weeks. Two weeks after you have completed the treatment we will retest you to make sure the overgrowth has resolved. Orders: Orders H Pylori Breath Test Today Patient Instructions: Process for specimen collection and reason for testing was explained to the patient. Specimen collection. Patient instructed to take a deep breath and then exhale into the blue bag, filling it up as much as possible. Patient instructed to drink a mixture of water and the artificial sweetener with a straw. A 15 minute wait period was observed. Patient instructed to take a deep breath and then exhale into the pink bag, filling it up as much as possible.?? Coding Level of Care Code Established Pt Est Pt Level 1 (86107) Patient Type Established Medical Decision Making Straight Forward Diagnoses Hx of gastritis Z87.19
--- OUTSIDE RECORDS SUMMARY | 2024-11-26 12:39 | XMS_ITS | Clinical Summary ---
Author Organization [facility] Address [address] [place] [address] Phone Care Team Providers Care Um Nurse Name Role Phone Yoana Howe MD Primary Care Provider Allergies Active Allergy Reactions Criticality Noted Date [...] Insurance Comprehensive Benefits Comprehensive Benefits Care Teams Um Nurse Relationship Specialty Start Date End Date Yoana Howe MD [address] [place], [place] PCP - General 08/07/20
== END 2024-11-26 12:31 | disposition home or self-care (01) ==
LOC: HO.HGI 11:49
PROVIDERS: PCP Internal Medicine; Visit Provider Internal Medicine Gastroenterology
DX: Z87.19 Personal history of other diseases of the digestive system (principal)

== ENCOUNTER 2024-11-26 11:48 | Outpatient (REF) | payer OTHER, SELFPAY ==
--- OUTSIDE RECORDS SUMMARY | 2024-11-26 16:10 | XMS_ITS | Clinical Summary ---
Author Organization [facility] Address [address] [place] [address] Phone Care Team Providers Care Sweatband Flanger Name Role Phone Yoana Howe MD Primary Care Provider [phone] Allergies Active Allergy Reactions Criticality Noted Date [...] Insurance Comprehensive Benefits Comprehensive Benefits Care Teams Sweatband Flanger Relationship Specialty Start Date End Date Yoana Howe MD [address] [place], [place] PCP - General 08/07/20
[2024-11-27 07:32] LABS: H Pylori Breath Test Negative (Negative)
== END 2024-11-26 11:49 | disposition home or self-care (01) ==
LOC: HO.LNP 11:48
PROVIDERS: PCP Internal Medicine; Visit Provider Internal Medicine Gastroenterology
DX: Z87.19 Personal history of other diseases of the digestive system (principal)
CPT/HCPCS: 83013; 99211

== ENCOUNTER 2025-01-12 16:05 | Outpatient (AMB) | payer OTHER, SELFPAY ==
--- NOTE | 2025-01-12 16:06 | MHC.PC.OV ---
Vital Signs 01/12/25 16:08 Height 4 ft 11 in Weight 190 lb BMI 38.4 BP 142/98 H Blood Pressure Location Lt brachial Position Sitting Intake Visit Reasons: 6 MONTH DEPRESSION Intake Note: Patient is here to follow up on body aches, dry cough, vomiting and sinus infection. General Operations Agent Required: No Model Photographers': Not Required per policy Accompanied by: Self / Same As Patient Allergies pineapple (PINEAPPLE) Allergy (Severe, Verified 01/12/25 16:19) SWELLING shellfish derived (SHELLFISH DERIVED) Allergy (Severe, Verified 01/12/25 16:19) ANAPHYLAXIS animal dander (PET DANDER) Allergy (Intermediate, Verified 01/12/25 16:19) ITCHING morphine (Morphine) Allergy (Intermediate, Verified 01/12/25 16:19) ITCHING NSAIDS (Non-Steroidal Anti-Inflamma (NSAIDS (NON-STEROIDAL ANTI-INFLAMMA) Allergy (Intermediate, Verified 01/12/25 16:19) BLEEDING sulfamethoxazole (From Bactrim) Allergy (Intermediate, Verified 01/12/25 16:19) RASH trimethoprim (From Bactrim) Allergy (Intermediate, Verified 01/12/25 16:19) RASH Medication List - Last Reconciled 01/12/25 by Yoana Saucedo MD atorvastatin 10 mg PO BEDTIME 90 days bupropion HCl XL 150 mg PO QAM 90 days capsaicin 0.025% 1 appl topical BID cholecalciferol (vitamin D3) 50 mcg PO DAILY 90 days fluticasone propion-salmeterol 250-50 mcg/dose (Advair Diskus) 1 ea PO BID ipratropium bromide 2 sprays intranasal TID-QID PRN losartan 100 mg PO DAILY 90 days pantoprazole 20 mg PO DAILY 30 days sodium chloride 0.65% (Saline Nasal Mist) 2 sprays intranasal Q4H PRN tirzepatide (weight loss) (Zepbound) 2.5 mg (0.5 mL) subcut QWEEK 4 weeks trazodone 100 mg (2 x 50 mg) PO BEDTIME PRN 90 days verapamil ER 240 mg PO DAILY Tobacco use date assessed: 08/31/24 Dental Screening Dental Screen Date: 08/31/24 Did you have a dental visit in the last 12 months?: Yes Did you have a dental problem in the last 6 months where you did not have access to dental care?: No Was dental information given to patient?: Patient has dentist HPI HPI Comments History of Present Illness Details This is a 49 year old female with severe depression, hypertension, obesity and moderate asthma that comes for follow up on her conditions. Depression is severe and she is on bupropion but she does not want to increase or change the medication. She declines counseling or a referral for psych outpatient. Blood pressure elevated but she has not take her medications. She is obese with bmi of 38 and is trying to do diet and exercise. Asthma has markedly improved with allergy injections which she completed. [facility] Medical History (Updated 01/12/25 @ 18:12 by Yoana Saucedo MD) Migraine Pure hypercholesterolemia Morbid obesity with BMI of 40.0-44.9, adult Mild recurrent major depression Asthma exacerbation Contact with and (suspected) exposure to other viral communicable diseases Hypovitaminosis D Insomnia Depression with anxiety Moderate asthma Essential hypertension Pneumonia Surgical History History of endometrial ablation History of esophagogastroduodenoscopy (EGD) History of hysterectomy Family History Mother Hypertension Father Hypertension Mental health disorder Maternal Grandmother Colon cancer Other Family history of rheumatoid arthritis Social History Housing: House Alcohol intake: never Patient Tobacco Use Status: Never used Tobacco e-Cigarette/Vaping Use: Never Used Second Hand Smoke Exposure: No service: No Current occupational status: employed Current occupation: [employer] [place]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 1. Little interest or pleasure in doing things: several days 2. Feeling down, depressed, or hopeless: nearly every day 3. Trouble falling or staying asleep, or sleeping too much: nearly every day 4. Feeling tired or having little energy: more than half the days 5. Poor appetite or overeating: nearly every day 6. Feeling bad about yourself - or that you are a failure or have let yourself or your family down: nearly every day 7. Trouble concentrating on things, such as reading the newspaper or watching television: nearly every day 8. Moving or speaking so slowly that other people could have noticed. Or the opposite - being so fidgety or restless that you have been moving around a lot more than usual: nearly every day 9. Thoughts that you would be better off or of hurting yourself in some way: nearly every day Total score: 24 Depression Screening Interpretation: Positive (no suicidal thoughts) Depression Screening Follow-up: Existing condition, In treatment and Follow-up Visit Requested Depression Screening Done: Yes Source: Developed by Drs. Rohan Gil, Alexandra Cheng, Edd Noonan and colleagues, with an educational michele from [employer]. Thrive Questionnaire Date Thrive assessed: 01/05/25 I am a: Patient What is your living situation today?: I have a steady place to live Within the past 12 months, did the food you bought not last and you didn't have the money to get more?: Never true Within the past 12 months, did you worry whether your food would run out before you got money to buy more?: Never true Do you have trouble paying for medicines?: No Do you have trouble getting transportation to medical appointments?: No Do you have trouble paying your heating and electricity bill?: No Do you have trouble taking care of your child, family member or friend?: No Do you have trouble with day-to-day activities such as bathing, preparing meals, shopping, managing finances, etc.?: No Are you currently unemployed and looking for a job?: No Are you interested in more education?: No Please select the resources that you would like help with: None Currently or been in a relationship where the following occur: No concerns reported THRIVE Score: 0 AUDIT C Alcohol Use Questionnaire (AUDIT-C) 1. How often do you have a drink containing alcohol?: Never 2. How many drinks containing alcohol do you have on a typical day when you are drinking?: 1 or 2 3. How often do you have six or more drinks on one occasion?: Never Total Score: 0 OLIVIA-7 AMB Questionnaire OLIVIA-7 Date OLIVIA - 7 assessed: 01/12/25 Feeling nervous, anxious, or on edge: 2 = More than half the days Not being able to stop or control worryin = Several days Worrying too much about different things: 1 = Several days Trouble relaxin = Several days Being so restless that it is hard to sit still: 0 = Not at all Becoming easily annoyed or irritable: 0 = Not at all Feeling afraid as if something awful might happen: 0 = Not at all Total OLIVIA-7 score (0-4 normal; 5-9 mild; 10-14 moderate; 15-21 severe): 5 Source: Developed by Drs. Rohan Gil, Alexandra Cheng, Edd Noonan and colleagues, with an educational michele from [employer]. OLIVIA-7 Assessment Billing OLIVIA-7 Assessment Tool: OLIVIA-7 Assessment 76790 Review of Systems Const All systems reviewed & are unremarkable except as noted in HPI and below Card Denies chest pain at rest, Denies chest pain with activity, Denies edema, Denies irregular heart rhythm, Denies claudication, Denies dyspnea, Denies dyspnea on exertion, Denies orthopnea, Denies paroxysmal nocturnal dyspnea and Denies slow heart rate Resp Denies cough, Denies dyspnea and Denies dyspnea on exertion GI Denies abdominal pain, Denies change in bowel habits, Denies excessive flatus, Denies nausea and Denies vomiting Psych Reports depression Physical exam (Primary Care) Vital Signs: Last Vital Signs BP 142/98 H 01/12/25 16:08 BMI result Body Mass Index 38.4 BMI Assessment/Plan discussion: High BMI High, discussed plan: lifestyle, weight reduction, dietary and physical activity Tobacco/Smoking Status: Tobacco use Status Tobacco use date assessed 08/31/24 01/12/25 16:08 Patient Tobacco Use Status Never used Tobacco 01/12/25 16:08 Tobacco use type 09/08/24 09:49 e-Cigarette/Vaping Use Never Used 01/12/25 16:08 PHQ-9: PHQ-9 Score PHQ-9: Total score 24 01/12/25 16:21 Depression Screening Interpretation: Positive (no suicidal thoughts) Depression Screening Follow-up: Existing condition, In treatment and Follow-up Visit Requested Thrive Assessment: Date of Thrive Assessment Date Thrive assessed 01/05/25 01/12/25 16:08 Currently or been in a relationship where the following occur: No concerns reported Resp Effort & Inspection: normal respiratory effort Auscultation: clear to auscultation bilaterally Cardio Jugular venous distension: no JVD Rate: regular rate Rhythm: regular rhythm Heart sounds: S1 normal heart sound present and S2 normal heart sound present Extrem General: Yes full ROM Coding Level of Care Code Est Pt Level 4 (25495) Complex EM visit Add On G2211 Diagnoses Severe recurrent major depression without psychotic features F33.2 Essential hypertension I10 Moderate persistent asthma with acute exacerbation J45.41 Asthma persistence: persistent Asthma complication type: with acute exacerbation Class 2 obesity with body mass index (BMI) of 38.0 to 38.9 in adult E66.812; Z68.38 Additional Codes OLIVIA-7 Assessment Billing - OLIVIA-7 Assessment Tool: OLIVIA-7 Assessment 94656 ([id number]) Time Spent (min) 26 Assessment & Plan Assessment & Plan (1) Severe recurrent major depression without psychotic features: Code(s): F33.2 - Major depressive disorder, recurrent severe without psychotic features Category: Medical (2) Essential hypertension: Code(s): I10 - Essential (primary) hypertension Category: Medical (3) Moderate asthma: Code(s): J45.909 - Unspecified asthma, uncomplicated Category: Medical Qualifiers: Asthma persistence: persistent Asthma complication type: with acute exacerbation Qualified Code(s): J45.41 - Moderate persistent asthma with (acute) exacerbation (4) Class 2 obesity with body mass index (BMI) of 38.0 to 38.9 in adult: Code(s): E66.812 - Obesity, class 2; Z68.38 - Body mass index [BMI] 38.0-38.9, adult Category: Medical Plan Continue current meds. Labs ordered. Be compliant with meds. BP goal is equal or less than 130/80. Orders: Orders Lipid Panel 6 Months E78.5 - Hyperlipidemia, unspecified Comprehensive [place]. Panel Fast 6 Months I10 - Essential (primary) hypertension Medications: Discontinued tirzepatide (weight loss) (Zepbound) for 4 weeks Discontinued Reason: Patient Completed Course 2.5 mg (0.5 mL) subcut QWEEK 4 weeks 2 mL 0RF E66.812 - Obesity, class 2, Z68.38 - Body mass index [BMI] 38.0-38.9, adult
[2025-01-12 16:08] VITALS: BP 142/98; BMI 38.4
--- OUTSIDE RECORDS SUMMARY | 2025-01-12 18:03 | XMS_ITS | Clinical Summary ---
Author Organization [facility] Address [address] [place] [address] Phone Care Team Providers Care Process Mechanic Name Role Phone Yoana Howe MD Primary [...] Insurance Comprehensive Benefits Comprehensive Benefits Care Teams Process Mechanic Relationship Specialty Start Date End Date Yoana Howe MD [address] [place], [place] PCP - General 08/07/20
== END 2025-01-12 16:50 | disposition home or self-care (01) ==
LOC: HO.HMCH 16:05
PROVIDERS: PCP Internal Medicine; Visit Provider Internal Medicine
DX: F33.2 Major depressive disorder, recurrent severe without psychotic features (principal); I10 Essential (primary) hypertension; J45.41 Moderate persistent asthma with (acute) exacerbation; E66.812 Obesity, class 2; Z68.38 Body mass index [BMI] 38.0-38.9, adult

== ENCOUNTER → 2025-01-12 16:05 | Outpatient (BNVA) | payer OTHER, SELFPAY | PROVIDERS: PCP Internal Medicine; Visit Provider Internal Medicine | DX: I10 Essential (primary) hypertension (principal); J45.909 Unspecified asthma, uncomplicated; F33.2 Major depressive disorder, recurrent severe without psychotic features; J45.41 Moderate persistent asthma with (acute) exacerbation; E66.812 Obesity, class 2; E78.5 Hyperlipidemia, unspecified; Z68.38 Body mass index [BMI] 38.0-38.9, adult | CPT/HCPCS: 96127 ==

== ENCOUNTER 2025-01-21 11:44 | Outpatient (AMB) | payer OTHER, SELFPAY ==
--- OUTSIDE RECORDS SUMMARY | 2025-01-21 12:53 | XMS_ITS | Clinical Summary ---
Author Organization [facility] Address [address] [place] [address] Phone Care Team Providers Care Compass Operator Name Role Phone Yoana Howe MD Primary Care Provider [phone] Allergies Active Allergy Reactions Criticality Noted Date [...] Insurance Comprehensive Benefits Comprehensive Benefits Care Teams Compass Operator Relationship Specialty Start Date End Date Yoana Howe MD [address] [place], [place] PCP - General 08/07/20
[2025-01-21 13:07] VITALS: BP 132/88; PULSE 93; O2SAT 99; BMI 38.8
--- NOTE | 2025-01-21 13:07 | MHC.OFFVIS ---
Vital Signs 01/21/25 13:07 Height 4 ft 11 in Weight 192 lb BMI 38.8 BP 132/88 Blood Pressure Location Lt brachial Position Sitting Pulse 93 Pulse Source Pulse Oximeter Pulse Oximetry (%) 99 Oxygen Delivery Method Room Air Intake Visit Reasons: Asthma Allergies pineapple (PINEAPPLE) Allergy (Severe, Verified 01/21/25 13:11) SWELLING shellfish derived (SHELLFISH DERIVED) Allergy (Severe, Verified 01/21/25 13:11) ANAPHYLAXIS animal dander (PET DANDER) Allergy (Intermediate, Verified 01/21/25 13:11) ITCHING morphine (Morphine) Allergy (Intermediate, Verified 01/21/25 13:11) ITCHING NSAIDS (Non-Steroidal Anti-Inflamma (NSAIDS (NON-STEROIDAL ANTI-INFLAMMA) Allergy (Intermediate, Verified 01/21/25 13:11) BLEEDING sulfamethoxazole (From Bactrim) Allergy (Intermediate, Verified 01/21/25 13:11) RASH trimethoprim (From Bactrim) Allergy (Intermediate, Verified 01/21/25 13:11) RASH HPI HPI Asthma: Details: 49-year-old lady, nonsmoker, with underlying history of asthma diagnosed when she was a child, now followed for underlying moderate to severe persistent allergic asthma and multiple environmental allergies.? She continues on Advair and albuterol MDI with good baseline control of her symptoms. She denies any recent exacerbations. After the last office visit patient's respiratory symptoms have been reasonably controlled except some allergy related exacerbations, however this time she is not interested in restarting Xolair. [facility] Medical History (Updated 01/12/25 @ 18:12 by Yoana Saucedo MD) Migraine Pure hypercholesterolemia Morbid obesity with BMI of 40.0-44.9, adult Mild recurrent major depression Asthma exacerbation Contact with and (suspected) exposure to other viral communicable diseases Hypovitaminosis D Insomnia Depression with anxiety Moderate asthma Essential hypertension Pneumonia Surgical History History of endometrial ablation History of esophagogastroduodenoscopy (EGD) History of hysterectomy Family History Mother Hypertension Father Hypertension Mental health disorder Maternal Grandmother Colon cancer Other Family history of rheumatoid arthritis Social History Housing: House Alcohol intake: never Patient Tobacco Use Status: Never used Tobacco e-Cigarette/Vaping Use: Never Used Second Hand Smoke Exposure: No service: No Current occupational status: employed Current occupation: [employer] 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[employer], rt hand Current occupational exposures/hazards: No Cognitive needs: No Hearing needs: No Vision needs: Yes (Glasses) Review of Systems Const Denies daytime sleepiness, Denies excessive sweating, Denies fatigue, Denies fever(s), Denies lethargy, Denies malaise, Denies night sweats, Denies snoring and Denies weight loss Eyes Denies blurry vision and Denies itchy eyes ENT Denies nasal congestion, Denies post nasal drip, Denies sinus pain, Denies sinus pressure and Denies other ( Thrush) Card Denies chest pain, Denies pedal edema, Denies dyspnea, Denies orthopnea and Denies paroxysmal nocturnal dyspnea Resp Denies cough, Denies hemoptysis, Denies excessive phlegm production, Denies dyspnea, Denies snoring and Denies wheezing GI Denies abdominal pain and Denies heartburn Musc Denies myalgias, Denies arthralgias and Denies joint swelling Skin/Breast Denies rash Neuro Denies memory loss and Denies seizure-like activity Psych Denies abnormal sleep pattern, Denies anxiety and Denies memory loss Endo Denies excessive sweating, Denies fatigue and Denies heat intolerance Lon/Lymph Denies easy bruising Aller/Immun Denies itchy eyes, Denies seasonal rhinorrhea and Denies wheezing Physical Exam Vital Signs: Last Vital Signs Pulse 93 01/21/25 13:07 BP 132/88 01/21/25 13:07 Pulse Ox 99 01/21/25 13:07 Oxygen Delivery Method Room Air 01/21/25 13:07 BMI result Body Mass Index 38.8 Const General: no acute distress and alert Nutritional Appearance: obese Orientation/consciousness: Other orientation findings ( oriented) HEENT Head: Yes atraumatic Eyes General: appearance normal, both eyes and all related structures Sclerae: sclerae normal EOM: EOMs intact bilaterally Neck Neck: Yes supple Lymphatic: no lymphadenopathy noted Resp Effort & Inspection: normal respiratory effort and no use of accessory muscles Auscultation: clear to auscultation bilaterally Cardio Rate: regular rate Rhythm: regular rhythm Heart sounds: no gallops, no murmurs and no rubs Skin General skin exam: other ( warm) Extrem General: No clubbing, No cyanosis and No edema Assessment & Plan Assessment & Plan (1) Severe persistent allergic asthma: Code(s): J45.50 - Severe persistent asthma, uncomplicated Category: Medical Plan: Suboptimal, but acceptable for patient control off Xolair and on Advair/albuterol MDI. Continue current regimen. (2) Environmental allergies: Code(s): Z91.09 - Other allergy status, other than to drugs and biological substances Category: Medical Plan: Suboptimal control, patient wants to think before reconsidering Xolair injections. Coding Level of Care Code Est Pt Level 4 (94965) Diagnoses Severe persistent allergic asthma J45.50 Environmental allergies Z91.09
== END 2025-01-21 13:28 | disposition home or self-care (01) ==
PROVIDERS: PCP Internal Medicine; Visit Provider Internal Medicine Pulmonary Disease
DX: J45.50 Severe persistent asthma, uncomplicated (principal); Z91.09 Other allergy status, other than to drugs and biological substances
CPT/HCPCS: 99214

== ENCOUNTER 2025-02-14 14:54 | Outpatient (AMB) | payer OTHER, SELFPAY ==
--- OUTSIDE RECORDS SUMMARY | 2025-02-14 15:39 | XMS_ITS | Clinical Summary ---
Author Organization [facility] Address [address] [place] [address] Phone Care Team Providers Care Supervisory Cbp Officer Name Role Phone Yoana Howe MD Primary Care Provider [phone] Allergies Active Allergy Reactions Criticality Noted Date [...] of 2 - PCV) 1996 Influenza Vaccine (#1) 2025 Insurance Comprehensive Benefits Comprehensive Benefits Care Teams Supervisory Cbp Officer Relationship Specialty Start Date End Date Yoana Howe MD [address] [place], [place] PCP - General 08/07/20
--- NOTE | 2025-02-14 16:12 | MHC.OFFWIV ---
Intake Vital Signs 02/14/25 16:13 Height 4 ft 11 in Weight 190 lb BMI 38.4 BP 142/90 H Blood Pressure Location Rt brachial Position Sitting Pulse 84 Pulse Source Pulse Oximeter Temp 98.1 F Temp Source Oral Pulse Oximetry (%) 98 Oxygen Delivery Method Room Air Intake Visit Reasons: EP pain on RT knee Intake Note: Patient present right knee pain times 3 days, felt a shift when walking on Friday and pain started on Friday Patient Tobacco Use Status: Never used Tobacco Radiation Protection Specialist Required: No Allergies pineapple (PINEAPPLE) Allergy (Severe, Verified 02/14/25 16:22) SWELLING shellfish derived (SHELLFISH DERIVED) Allergy (Severe, Verified 02/14/25 16:22) ANAPHYLAXIS animal dander (PET DANDER) Allergy (Intermediate, Verified 02/14/25 16:22) ITCHING morphine (Morphine) Allergy (Intermediate, Verified 02/14/25 16:22) ITCHING NSAIDS (Non-Steroidal Anti-Inflamma (NSAIDS (NON-STEROIDAL ANTI-INFLAMMA) Allergy (Intermediate, Verified 02/14/25 16:22) BLEEDING sulfamethoxazole (From Bactrim) Allergy (Intermediate, Verified 02/14/25 16:22) RASH trimethoprim (From Bactrim) Allergy (Intermediate, Verified 02/14/25 16:22) RASH Do you need a note to return to daycare/school/sports/work: No HPI HPI Comments History of Present Illness Details History of Present Illness - The patient is a 49-year-old female presenting with knee instability and pain. - The knee instability began after a walk on Friday, with the knee feeling unstable and painful. - She was feeling a clicking and felt like the knee was shifting. - The patient attempted to manage the pain with rest, ice, and ibuprofen, but the symptoms persisted. - The patient has a history of bursitis diagnosed by a school fundraising director after a fall, though the affected leg is uncertain. - Family history includes osteoporosis and rheumatoid arthritis. - She has pain when she walks and bears weight. - She has not fallen or had any trauma to the knee or leg. - She denies swelling, redness, warmth, calf pain, numbness, tingling, ankle pain, or foot pain. Physical Exam General: Cooperative, healthy appearing, comfortable, no acute distress and well developed Respiratory: Normal respiratory effort and able to speak in complete sentences. Clear to auscultation bilaterally Cardiovascular: Regular rate and rhythm. Normal S1 and S2 Skin: Bruises noted, no rashes or lesions noted. Musculoskeletal: No swelling noted of the knee. FROM of the knee. Click noted. No TTP of the patella. TTP of the medial and lateral condyle. No TTP of the medial or lateral meniscus, or posterior fossa. Negative anterior drawer test. Negative Estee noted. DTR are 1+ on the LE. Negative Homans noted. FROM of the ankle. Ambulates with a limping gait. Strength is 5/5 on the LE bilaterally. Neuro: Sensation is intact on the LE bilaterally. [facility] Medical History (Updated 01/12/25 @ 18:12 by Yoana Saucedo MD) Migraine Pure hypercholesterolemia Morbid obesity with BMI of 40.0-44.9, adult Mild recurrent major depression Asthma exacerbation Contact with and (suspected) exposure to other viral communicable diseases Hypovitaminosis D Insomnia Depression with anxiety Moderate asthma Essential hypertension Pneumonia Surgical History History of endometrial ablation History of esophagogastroduodenoscopy (EGD) History of hysterectomy Family History Mother Hypertension Father Hypertension Mental health disorder Maternal Grandmother Colon cancer Other Family history of rheumatoid arthritis Social History Housing: House Alcohol intake: never Patient Tobacco Use Status: Never used Tobacco e-Cigarette/Vaping Use: Never Used Second Hand Smoke Exposure: No service: No Current occupational status: employed Current occupation: [employer]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[employer], rt hand Current occupational exposures/hazards: No Cognitive needs: No Hearing needs: No Vision needs: Yes (Glasses) Review of Systems Const All systems reviewed & are unremarkable except as noted in HPI and below Physical Exam Vital Signs: Last Vital Signs Temp 98.1 F 02/14/25 16:13 Pulse 84 02/14/25 16:13 BP 142/90 H 02/14/25 16:13 Pulse Ox 98 02/14/25 16:13 Oxygen Delivery Method Room Air 02/14/25 16:13 BMI result Body Mass Index 38.4 Assessment & Plan Assessment & Plan (1) Right knee pain: Code(s): M25.561 - Pain in right knee Qualifiers: Chronicity: acute Qualified Code(s): M25.561 - Pain in right knee Plan Most likely strain vs arthritis vs bursitis Plan - will order an x-ray of the knee - rest, ice and elevation - tylenol or motrin as needed fpr pain - wear the knee brace - will refer her to ortho - follow up with her PCP Orders: Orders XR knee RT 3V Today M25.561 - Pain in right knee Referrals Orthopedics Referral M25.561 - Pain in right knee Coding Level of Care Code Est Pt Level 4 (36071) Diagnoses Acute pain of right knee M25.561 Chronicity: acute
[2025-02-14 16:13] VITALS: BP 142/90; PULSE 84; TEMP 36.7; O2SAT 98; BMI 38.4
== END 2025-02-14 17:00 | disposition home or self-care (01) ==
PROVIDERS: PCP Internal Medicine; Visit Provider Physician Assistant Medical
DX: M25.561 Pain in right knee (principal)

== ENCOUNTER 2025-02-15 07:20 | Outpatient (REF) | payer OTHER, SELFPAY ==
--- NOTE | ~2025-02-15 | XR_ITS ---
EXAMINATION: XR KNEE 3 VIEWS RIGHT HISTORY: M25.561 - Pain in right knee COMPARISON: There are no prior studies available for comparison. FINDINGS: Three views of the right knee are submitted. Osseous mineralization is normal. There is no fracture or dislocation. The joint spaces are preserved. There is chondrocalcinosis. There is no joint effusion. XR/XR knee RT 3V IMPRESSION: Chondrocalcinosis. Otherwise unremarkable examination of the right knee. Electronically signed by: Rohan Small MD 02/15/2025 08:01 AM EDT
== END 2025-02-15 07:21 | disposition home or self-care (01) ==
LOC: HO.XRAY 07:20
PROVIDERS: Visit Provider Physician Assistant Medical
DX: M25.561 Pain in right knee (principal)
CPT/HCPCS: 73562

== ENCOUNTER → 2025-02-15 07:26 | Outpatient (BNV) | payer OTHER, SELFPAY | PROVIDERS: Visit Provider Radiology Diagnostic Radiology | DX: M11.261 Other chondrocalcinosis, right knee (principal) | CPT/HCPCS: 73562 ==

== ENCOUNTER 2025-04-19 14:22 | Outpatient (REF) | payer OTHER, SELFPAY ==
--- NOTE | ~2025-04-19 | XR_ITS ---
CLINICAL HISTORY: M25.569 - Pain in unspecified knee Standing AP view of both knees with 2 additional views of the right knee. Comparison: CR/TN/SR - XR KNEE RT 3V - 02/15/25 07:54 EDT Findings: Bones intact. No dislocations. There is bilateral chondrocalcinosis compatible with calcium pyrophosphate deposition disease. There is no joint space narrowing or other acute abnormalities. No joint effusion. No radiopaque foreign body. IMPRESSION: There is bilateral chondrocalcinosis compatible with calcium pyrophosphate deposition disease. No interval changes. This document has been electronically signed by: Nelson Hopper MD on 04/20/2025 12:46:52
== END 2025-04-19 14:23 | disposition home or self-care (01) ==
LOC: HO.HOSX 14:22
PROVIDERS: PCP Internal Medicine; Visit Provider Physician Assistant
DX: M11.261 Other chondrocalcinosis, right knee (principal)
CPT/HCPCS: 20610; 73562; J0665; J1100; J2003

== ENCOUNTER 2025-04-19 14:22 | Outpatient (AMB) | payer OTHER, SELFPAY ==
--- NOTE | 2025-04-19 14:50 | MHC.OFFVIS ---
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 Patient reports ongoing pain for about . She states that her pain is worse one the medial and lateral aspect of the knee. Patient mentions that 02/15/25 she went to urgent care due to having severe pain. Patient has notices that her pain is worse when she is walking, bending, sitting and going up and down the stair. She has tried bracing and tylenol and ibuprofen with no relief. Allergies pineapple (PINEAPPLE) Allergy (Severe, Verified 04/19/25 14:53) SWELLING shellfish derived (SHELLFISH DERIVED) Allergy (Severe, Verified 04/19/25 14:53) ANAPHYLAXIS animal dander (PET DANDER) Allergy (Intermediate, Verified 04/19/25 14:53) ITCHING morphine (Morphine) Allergy (Intermediate, Verified 04/19/25 14:53) ITCHING NSAIDS (Non-Steroidal Anti-Inflamma (NSAIDS (NON-STEROIDAL ANTI-INFLAMMA) Allergy (Intermediate, Verified 04/19/25 14:53) BLEEDING sulfamethoxazole (From Bactrim) Allergy (Intermediate, Verified 04/19/25 14:53) RASH trimethoprim (From Bactrim) Allergy (Intermediate, Verified 04/19/25 14:53) RASH HPI 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 Patel is a 49 year old female who presents to the office today for evaluation of right knee pain. Patient reports that she has pain along the medial and lateral aspect of the knee. She presented to the urgent care on 02/15/2025 after she was experiencing severe pain when she woke up in the morning and was unable to bear weight. She was then referred to Orthopedics after obtaining x-rays which were negative for any acute fracture or dislocation. Patient reports increased pain with ambulation, bending, sitting, squatting and stair climbing. She has tried Tylenol and ibuprofen with no relief. [facility] Medical History (Updated 04/20/25 @ 11:13 by Cristin Clifford PA-C) Migraine Pure hypercholesterolemia Morbid obesity with BMI of 40.0-44.9, adult Mild recurrent major depression Asthma exacerbation Contact with and (suspected) exposure to other viral communicable diseases Hypovitaminosis D Insomnia Depression with anxiety Moderate asthma Essential hypertension Pneumonia Surgical History History of endometrial ablation History of esophagogastroduodenoscopy (EGD) History of hysterectomy Family History Mother Hypertension Father Hypertension Mental health disorder Maternal Grandmother Colon cancer Other Family history of rheumatoid arthritis Social History Housing: House Alcohol intake: never Patient Tobacco Use Status: Never used Tobacco e-Cigarette/Vaping Use: Never Used Second Hand Smoke Exposure: No service: No Current occupational status: employed 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 No ecchymosis, erythema, or joint effusion. Tenderness to palpation both medial and lateral joint lines. Full knee extension and flexion. NVI. Psych Appearance: grossly normal Mental Status: mental status grossly normal Attitude: cooperative Office Procedures AMB Joint Injection/Aspiration Joint Injection/Aspiration Primary Site: right knee Prep: site was prepped using aseptic technique, ethochloride spray was applied and injection warnings given Injected: 40 mg of, with 3 mL of, 1% plain lidocaine, 0.25% bupivacaine, in the joint and decadron Approach Used: anterolateral Procedure: The patient tolerated the procedure well, but had some pain with the injection and there was some relief with the local anesthesia Coding 01605 - Large joint Procedure code (CPT) selection complete Assessment & Plan Assessment & Plan (1) Chondrocalcinosis of right knee: Code(s): M11.261 - Other chondrocalcinosis, right knee Category: Medical Plan Ms. Patel is a 49 year old female who presents to the office today for evaluation of right knee pain. Patient reports that she has pain along the medial and lateral aspect of the knee. She presented to the urgent care on 02/15/2025 after she was experiencing severe pain when she woke up in the morning and was unable to bear weight. She was then referred to Orthopedics after obtaining x-rays which were negative for any acute fracture or dislocation. Patient reports increased pain with ambulation, bending, sitting, squatting and stair climbing. She has tried Tylenol and ibuprofen with no relief. The patient was offered a cortisone injection in the right knee. The patient was explained the risks, benefits, and alternatives to receiving this injection. After receiving consent for the injection, the patient had the procedure done while in the office today. The patient tolerated the procedure well with no complications. Additionally, I provided the patient with a Genumed knee brace in which she was fit off the shelf. She will wear this during activities and during work. Follow-up will be PRN, or sooner if needed X-rays of the right knee which were obtained while in the office today and were reviewed by me, Cristin Clifford PA-C, revealed right meniscal chondrocalcinosis. No acute fracture or dislocation. Orders: Orders XR knee RT 3V 04/19/25 M25.569 - Pain in unspecified knee Coding Level of Care Code Est Pt Level 3 (89910) Diagnoses Chondrocalcinosis of right knee M11.261 CPT Codes Coding - 60956 Large joint: 09713 - Large joint ([id number])
--- OUTSIDE RECORDS SUMMARY | 2025-04-19 17:38 | XMS_ITS | Clinical Summary ---
Author Organization [facility] Address [address] [place] [address] Phone Care Team Providers Care Park Manager Name Role Phone Yoana Howe MD Primary Care Provider [phone] Allergies Active Allergy Reactions Criticality Noted Date [...] Insurance Comprehensive Benefits Comprehensive Benefits Care Teams Park Manager Relationship Specialty Start Date End Date Yoana Howe MD [address] [place], [place] PCP - General 08/07/20
== END 2025-04-19 16:33 | disposition home or self-care (01) ==
LOC: HO.HOS 14:22
PROVIDERS: PCP Internal Medicine; Visit Provider Physician Assistant
DX: M11.261 Other chondrocalcinosis, right knee (principal)
CPT/HCPCS: 20610; 99213

== ENCOUNTER → 2025-04-19 14:38 | Outpatient (BNV) | payer OTHER, SELFPAY | PROVIDERS: PCP Internal Medicine; Visit Provider Radiology Diagnostic Radiology | DX: M11.261 Other chondrocalcinosis, right knee (principal); M11.262 Other chondrocalcinosis, left knee | CPT/HCPCS: 73562 ==

== ENCOUNTER 2025-04-29 08:28 | Outpatient (REF) | payer OTHER, SELFPAY ==
--- OUTSIDE RECORDS SUMMARY | 2025-05-02 09:01 | XMS_ITS | Clinical Summary ---
Author Organization [facility] Address [address] [place] [address] Phone Care Team Providers Care Administrator Of Home Health Name Role Phone Yoana Howe MD Primary [...] Insurance Comprehensive Benefits Comprehensive Benefits Care Teams Administrator Of Home Health Relationship Specialty Start Date End Date Yoana Howe MD [address] [place], [place] PCP - General 08/07/20
== END 2025-04-29 08:29 | disposition home or self-care (01) ==
LOC: HO.HOSX 08:28
PROVIDERS: Visit Provider Physician Assistant
DX: Z13.89 Encounter for screening for other disorder (principal)

== ENCOUNTER 2025-05-23 14:33 | Outpatient (AMB) | payer OTHER, SELFPAY ==
--- NOTE | 2025-05-23 14:37 | A.OFFVIS_ITS ---
Vital Signs 05/23/25 14:41 Height 4 ft 11 in Weight 190 lb BMI 38.4 BP 123/62 Blood Pressure Location Lt brachial Position Sitting Pulse 96 Intake Visit Reasons: 6m Intake Note: Tiesha presents in the office as a 6 month follow up. CC: constipation, pains in the ball in her stomach. Feels like the ball got bigger and some day it is sensitive. Customs Port Director Required: No Allergies pineapple (PINEAPPLE) Allergy (Severe, Verified 05/23/25 14:43) SWELLING shellfish derived (SHELLFISH DERIVED) Allergy (Severe, Verified 05/23/25 14:43) ANAPHYLAXIS animal dander (PET DANDER) Allergy (Intermediate, Verified 05/23/25 14:43) ITCHING morphine (Morphine) Allergy (Intermediate, Verified 05/23/25 14:43) ITCHING NSAIDS (Non-Steroidal Anti-Inflamma (NSAIDS (NON-STEROIDAL ANTI-INFLAMMA) Allergy (Intermediate, Verified 05/23/25 14:43) BLEEDING sulfamethoxazole (From Bactrim) Allergy (Intermediate, Verified 05/23/25 14:43) RASH trimethoprim (From Bactrim) Allergy (Intermediate, Verified 05/23/25 14:43) RASH HPI HPI 6m: Details: A 49 y/o female f/u RECAP: EGD/ colon 2023-for acid reflux, rectal bleeding, constipation and positive Cologuard Famotidine with fairly good response taking p.r.n. Endoscopy Findings: gastritis esophagitis Colonoscopy Findings: internal hemorrhoids non specific mucosal changes cecum Path: duodenitis H pylor breath - neg INTERIM: she has constipation she has blaoting she has same pain, worse with touch can be worse with fat foods, greasy no n/v eats a lot of rice EXAM: GENERAL: The patient is well developed and nontoxic. VITAL SIGNS:see workflow HEENT: Nonicteric sclerae, PERRLA, EOMI. Oropharynx clear. Moist mucous membranes. Conjunctivae appear well perfused. No thyroid mass. CHEST: Chest wall is nontender. HEART: Regular rate and rhythm without murmurs. LUNGS: Clear to auscultation bilaterally. ABDOMEN: Soft, positive bowel sounds, tender epigastrium and RUQ, no organomegaly.no flank tenderness SKIN: No rash, no excessive bruising, petechiae, or purpura. NEUROLOGIC: Cranial nerves II-XII intact without motor/sensory deficit. Psych: normal affect A/P: 1/ epigastric pain, duodenitis in the past 2/ diet low in fiber and constipation, also on verapamil, ?SIBO or CHO intolerance PLAN: 1/ US r/o gallstones 2/ trial of fiber and add miralax 3. trial of rifaximin PFS Medical History (Updated 05/23/25 @ 15:05 by Shelton Waller MD) Migraine Pure hypercholesterolemia Morbid obesity with BMI of 40.0-44.9, adult Mild recurrent major depression Asthma exacerbation Contact with and (suspected) exposure to other viral communicable diseases Hypovitaminosis D Insomnia Depression with anxiety Moderate asthma Essential hypertension Pneumonia Surgical History History of endometrial ablation History of esophagogastroduodenoscopy (EGD) History of hysterectomy Family History Mother Hypertension Father Hypertension Mental health disorder Maternal Grandmother Colon cancer Other Family history of rheumatoid arthritis Social History Housing: House Alcohol intake: never Patient Tobacco Use Status: Never used Tobacco e-Cigarette/Vaping Use: Never Used Second Hand Smoke Exposure: No service: No Current occupational status: employed 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, rt hand Current occupational exposures/hazards: No Cognitive needs: No Hearing needs: No Vision needs: Yes (Glasses) Physical Exam Vital Signs: Last Vital Signs Pulse 96 05/23/25 14:41 BP 123/62 05/23/25 14:41 BMI result Body Mass Index 38.4 Assessment & Plan Assessment & Plan (1) Epigastric abdominal pain: Code(s): R10.13 - Epigastric pain Category: Medical Plan: as above Orders: Orders US abdomen comp w elastography Today R10.13 - Epigastric pain Medications: New polyethylene glycol 3350 (Miralax) 17 grams PO DAILY 510 grams 0RF rifaximin 550 mg PO TID 42 tabs 0RF 2 weeks Coding Level of Care Code Est Pt Level 3 (53039) Diagnoses Epigastric abdominal pain R10.13
[2025-05-23 14:41] VITALS: BP 123/62; PULSE 96; BMI 38.4
--- OUTSIDE RECORDS SUMMARY | 2025-05-23 18:07 | XMS_ITS | Clinical Summary ---
Author Organization [facility] Address [address] [place] [address] Phone Care Team Providers Care Muff Winder Name Role Phone Yoana Howe MD Primary Care Provider [phone] Allergies Active Allergy Reactions Criticality Noted Date [...] Insurance Comprehensive Benefits Comprehensive Benefits Care Teams Muff Winder Relationship Specialty Start Date End Date Yoana Howe MD [address] [place], [place] PCP - General 08/07/20
== END 2025-05-23 15:15 | disposition home or self-care (01) ==
LOC: HO.HGI 14:34
PROVIDERS: PCP Internal Medicine; Visit Provider Internal Medicine Gastroenterology
DX: R10.13 Epigastric pain (principal)
CPT/HCPCS: 99213

== ENCOUNTER 2025-06-28 13:23 | Outpatient (AMB) | payer OTHER, SELFPAY ==
--- NOTE | 2025-06-28 13:44 | MHC.OFFVIS ---
Intake Visit Reasons: Follow up Allergies pineapple (PINEAPPLE) Allergy (Severe, Verified 05/23/25 14:43) SWELLING shellfish derived (SHELLFISH DERIVED) Allergy (Severe, Verified 05/23/25 14:43) ANAPHYLAXIS animal dander (PET DANDER) Allergy (Intermediate, Verified 05/23/25 14:43) ITCHING morphine (Morphine) Allergy (Intermediate, Verified 05/23/25 14:43) ITCHING NSAIDS (Non-Steroidal Anti-Inflamma (NSAIDS (NON-STEROIDAL ANTI-INFLAMMA) Allergy (Intermediate, Verified 05/23/25 14:43) BLEEDING sulfamethoxazole (From Bactrim) Allergy (Intermediate, Verified 05/23/25 14:43) RASH trimethoprim (From Bactrim) Allergy (Intermediate, Verified 05/23/25 14:43) RASH HPI Comments Details: 49 y/o woman with HTN, anxiety, PUD and migraine. She is presenting for a follow-up on headache management. The patient reports taking verapamil daily before bed, which has been effective in controlling the headaches. The patient has not been experiencing headaches recently and also has sumatriptan available for acute treatment, although it has not been needed. [facility] Medical History (Updated 06/28/25 @ 13:47 by Ellen Santiago MD) Migraine Pure hypercholesterolemia Morbid obesity with BMI of 40.0-44.9, adult Mild recurrent major depression Asthma exacerbation Contact with and (suspected) exposure to other viral communicable diseases Hypovitaminosis D Insomnia Depression with anxiety Moderate asthma Essential hypertension Pneumonia Surgical History History of endometrial ablation History of esophagogastroduodenoscopy (EGD) History of hysterectomy Family History Mother Hypertension Father Hypertension Mental health disorder Maternal Grandmother Colon cancer Other Family history of rheumatoid arthritis Social History Housing: House Alcohol intake: never Patient Tobacco Use Status: Never used Tobacco e-Cigarette/Vaping Use: Never Used Second Hand Smoke Exposure: No service: No Current occupational status: employed 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 Physical Exam Neuro Other: Mental Status: Alert and oriented to person, place, and time. Normal attention. Normal spontaneous speech, fluency, and comprehension. No obvious issues with mood and memory. Affect is appropriate. Cranial Nerves: CN II: Visual daniel full to confrontation, visual acuity intact. CN III, IV, : Pupils equal, round, reactive to light and accommodation. Extraocular movements are normal. CN V: Facial sensation is normal. CN VII: Facial movements symmetrical. CN VIII: Hearing intact to bedside conversation is normal. CN IX, X: Palate elevates symmetrically. CN XI: Shoulder shrug and head turn symmetrical. CN XII: Tongue midline without atrophy or fasciculations. Extrapyramidal: Full facial expressions and blinking. No rigidity. Movements are appropriate with no tremor or abnormality. Speech: Normal; no dysarthria or tremor. Assessment & Plan Assessment & Plan (1) Migraine: Comment: [facility] at off in January 2024: WNL MRI brain WWO at [facility] [place] in January 2024: WNL CT brain WO at [facility] [place] in Aug 2018: WNL CT brain WO at [facility] [place] in 2006: WNL. Code(s): G43.909 - Migraine, unspecified, not intractable, without status migrainosus Category: Medical Qualifiers: Migraine type: migraine (< 15 days per month) without aura Status migrainosus presence: without status migrainosus Intractability: not intractable Qualified Code(s): G43.009 - Migraine without aura, not intractable, without status migrainosus Plan Impression: Migraine without aura Recommendations: 1. Verapamil extended release 240 mg 1 a day 2. Sumatriptan 50 mg 1 a day as needed Medications: Refilled verapamil ER 240 mg PO DAILY 90 caps 1RF Coding Level of Care Code Est Pt Level 3 (73236) Diagnoses Migraine without aura and without status migrainosus, not intractable G43.009 Migraine type: migraine (< 15 days per month) without aura Status migrainosus presence: without status migrainosus Intractability: not intractable
== END 2025-06-28 15:34 | disposition home or self-care (01) ==
LOC: HO.HSM 13:24
PROVIDERS: Visit Provider Psychiatry & Neurology Neurology
DX: G43.009 Migraine without aura, not intractable, without status migrainosus (principal)
CPT/HCPCS: 99213

== ENCOUNTER 2025-07-01 06:57 | Outpatient (REF) | payer OTHER, SELFPAY ==
--- OUTSIDE RECORDS SUMMARY | 2025-07-01 06:59 | XMS_ITS | Clinical Summary ---
Author Organization [facility] Address [address] [place] [address] Phone Care Team Providers Care Farm Machinery Mechanic Name Role Phone Yoana Howe MD Primary Care Provider [phone] Allergies Active Allergy Reactions Criticality Noted Date [...] Insurance Comprehensive Benefits Comprehensive Benefits Care Teams Farm Machinery Mechanic Relationship Specialty Start Date End Date Yoana Howe MD [address] [place], [place] PCP - General 08/07/20
[2025-07-01 10:55] LABS: Alanine Aminotransferase 25 U/L (0-31); Albumin Level 4.4 g/dL (3.5-5.0); Alkaline Phosphatase 82 U/L (39-117); Anion Gap 9 (12-20); Aspartate Amino Transferase 20 U/L (5-31); Blood Urea Nitrogen 14 mg/dL (9-16); Calcium 9.1 mg/dL (8.4-10.2); Carbon Dioxide 24 mmol/L (22-29); Chloride 110 mmol/L (96-108); Cholesterol 161 mg/dL (<200); Estimated Glomerular Filt Rate > 60; HDL Cholesterol 42 mg/dL (>40); Potassium 4.2 mmol/L (3.3-5.1); Sodium 139 mmol/L (135-145); Total Protein 6.9 g/dL (6.5-8.0); Triglycerides 85 mg/dL (<150)
== END 2025-07-01 06:58 | disposition home or self-care (01) ==
LOC: HO.10HDL 06:57
PROVIDERS: Visit Provider Internal Medicine
DX: I10 Essential (primary) hypertension (principal); E78.5 Hyperlipidemia, unspecified
CPT/HCPCS: 36415; 80053; 80061

== ENCOUNTER 2025-07-07 15:35 | Outpatient (AMB) | payer OTHER, SELFPAY ==
[2025-07-07 15:39] VITALS: BP 140/87; PULSE 99; O2SAT 99; BMI 39.6
--- NOTE | 2025-07-07 15:39 | A.OFFVIS_ITS ---
Vital Signs 07/07/25 15:39 Height 4 ft 11 in Weight 196 lb BMI 39.6 BP 140/87 H Blood Pressure Location Lt brachial Position Sitting Pulse 99 Pulse Source Pulse Oximeter Pulse Oximetry (%) 99 Oxygen Delivery Method Room Air Intake Visit Reasons: Asthma Allergies pineapple (PINEAPPLE) Allergy (Severe, Verified 07/07/25 15:42) SWELLING shellfish derived (SHELLFISH DERIVED) Allergy (Severe, Verified 07/07/25 15:42) ANAPHYLAXIS animal dander (PET DANDER) Allergy (Intermediate, Verified 07/07/25 15:42) ITCHING morphine (Morphine) Allergy (Intermediate, Verified 07/07/25 15:42) ITCHING NSAIDS (Non-Steroidal Anti-Inflamma (NSAIDS (NON-STEROIDAL ANTI-INFLAMMA) Allergy (Intermediate, Verified 07/07/25 15:42) BLEEDING sulfamethoxazole (From Bactrim) Allergy (Intermediate, Verified 07/07/25 15:42) RASH trimethoprim (From Bactrim) Allergy (Intermediate, Verified 07/07/25 15:42) RASH HPI HPI Asthma: Details: 49-year-old lady, nonsmoker, with underlying history of asthma diagnosed when she was a child, now followed for underlying moderate to severe persistent allergic asthma and multiple environmental allergies.? Patient has been rarely using her Advair or albuterol MDI. She denies any recent exacerbations. [facility] Medical History (Updated 06/28/25 @ 13:47 by Ellen Santiago MD) Migraine Pure hypercholesterolemia Morbid obesity with BMI of 40.0-44.9, adult Mild recurrent major depression Asthma exacerbation Contact with and (suspected) exposure to other viral communicable diseases Hypovitaminosis D Insomnia Depression with anxiety Moderate asthma Essential hypertension Pneumonia Surgical History History of endometrial ablation History of esophagogastroduodenoscopy (EGD) History of hysterectomy Family History Mother Hypertension Father Hypertension Mental health disorder Maternal Grandmother Colon cancer Other Family history of rheumatoid arthritis Social History Housing: House Alcohol intake: never Patient Tobacco Use Status: Never used Tobacco e-Cigarette/Vaping Use: Never Used Second Hand Smoke Exposure: No service: No Current occupational status: employed 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, rt hand Current occupational exposures/hazards: No Cognitive needs: No Hearing needs: No Vision needs: Yes (Glasses) Review of Systems Const Denies daytime sleepiness, Denies excessive sweating, Denies fatigue, Denies fever(s), Denies lethargy, Denies malaise, Denies night sweats, Denies snoring and Denies weight loss Eyes Denies blurry vision and Denies itchy eyes ENT Denies nasal congestion, Denies post nasal drip, Denies sinus pain, Denies sinus pressure and Denies other ( Thrush) Card Denies chest pain, Denies pedal edema, Denies dyspnea, Denies orthopnea and Denies paroxysmal nocturnal dyspnea Resp Denies cough, Denies hemoptysis, Denies excessive phlegm production, Denies dyspnea, Denies snoring and Denies wheezing GI Denies abdominal pain and Denies heartburn Musc Denies myalgias, Denies arthralgias and Denies joint swelling Skin/Breast Denies rash Neuro Denies memory loss and Denies seizure-like activity Psych Denies abnormal sleep pattern, Denies anxiety and Denies memory loss Endo Denies excessive sweating, Denies fatigue and Denies heat intolerance Lon/Lymph Denies easy bruising Aller/Immun Denies itchy eyes, Denies seasonal rhinorrhea and Denies wheezing Physical Exam Vital Signs: Last Vital Signs Pulse 99 07/07/25 15:39 BP 140/87 H 07/07/25 15:39 Pulse Ox 99 07/07/25 15:39 Oxygen Delivery Method Room Air 07/07/25 15:39 BMI result Body Mass Index 39.6 Const General: no acute distress and alert Orientation/consciousness: Other orientation findings ( oriented) HEENT Head: Yes atraumatic Eyes General: appearance normal, both eyes and all related structures Sclerae: sclerae normal EOM: EOMs intact bilaterally Neck Neck: Yes supple Lymphatic: no lymphadenopathy noted Resp Effort & Inspection: normal respiratory effort and no use of accessory muscles Auscultation: clear to auscultation bilaterally Cardio Rate: regular rate Rhythm: regular rhythm Heart sounds: no gallops, no murmurs and no rubs Skin General skin exam: other ( warm) Extrem General: No clubbing, No cyanosis and No edema Assessment & Plan Assessment & Plan (1) Moderate asthma: Code(s): J45.909 - Unspecified asthma, uncomplicated Category: Medical Qualifiers: Asthma persistence: persistent Asthma complication type: with acute exacerbation Qualified Code(s): J45.41 - Moderate persistent asthma with (acute) exacerbation Plan: Well controlled on Advair and albuterol MDI. Continue current regimen. Coding Level of Care Code Est Pt Level 3 (77708) Diagnoses Moderate persistent asthma with acute exacerbation J45.41 Asthma persistence: persistent Asthma complication type: with acute exacerbation
== END 2025-07-07 15:50 | disposition home or self-care (01) ==
LOC: HO.HPS 15:36
PROVIDERS: PCP Internal Medicine; Visit Provider Internal Medicine Pulmonary Disease
DX: J45.41 Moderate persistent asthma with (acute) exacerbation (principal)
CPT/HCPCS: 99213

== ENCOUNTER 2025-07-13 15:32 | Outpatient (AMB) | payer OTHER, SELFPAY ==
[2025-07-13 15:54] VITALS: BP 132/70; PULSE 96; RESP 16; TEMP 36.3; O2SAT 96; BMI 39.4
--- NOTE | 2025-07-13 15:54 | A.OFFPC_ITS ---
Vital Signs 07/13/25 15:54 Height 4 ft 11 in Weight 195 lb BMI 39.4 BP 132/70 Blood Pressure Location Lt brachial Position Sitting Respiration 16 Pulse 96 Pulse Source Pulse Oximeter Temp 97.3 F Temp Source Temporal Artery Scan Pulse Oximetry (%) 96 Oxygen Delivery Method Room Air Intake Visit Reasons: pHYSICAL Intake Note: Patient is here to follow up on body aches, dry cough, vomiting and sinus infection. Insurance Processing Clerk Required: No Physical Security Engineer: Not Required per policy Accompanied by: Self / Same As Patient Allergies pineapple (PINEAPPLE) Allergy (Severe, Verified 07/13/25 16:34) SWELLING shellfish derived (SHELLFISH DERIVED) Allergy (Severe, Verified 07/13/25 16:34) ANAPHYLAXIS animal dander (PET DANDER) Allergy (Intermediate, Verified 07/13/25 16:34) ITCHING morphine (Morphine) Allergy (Intermediate, Verified 07/13/25 16:34) ITCHING NSAIDS (Non-Steroidal Anti-Inflamma (NSAIDS (NON-STEROIDAL ANTI-INFLAMMA) Allergy (Intermediate, Verified 07/13/25 16:34) BLEEDING sulfamethoxazole (From Bactrim) Allergy (Intermediate, Verified 07/13/25 16:34) RASH trimethoprim (From Bactrim) Allergy (Intermediate, Verified 07/13/25 16:34) RASH Medication List - Last Reconciled 07/13/25 by Yoana Saucedo MD atorvastatin 10 mg PO BEDTIME 90 days bupropion HCl XL 150 mg PO QAM 90 days cephalexin 500 mg PO Q8H 14 days fluticasone propion-salmeterol 250-50 mcg/dose (Advair Diskus) 1 ea PO BID ipratropium bromide 2 sprays intranasal TID-QID PRN losartan 100 mg PO DAILY 90 days pantoprazole 20 mg PO DAILY 90 days sumatriptan succinate 50 mg PO trazodone 100 mg (2 x 50 mg) PO BEDTIME PRN 90 days verapamil ER 240 mg PO DAILY Tobacco use date assessed: 07/13/25 Dental Screening Dental Screen Date: 07/13/25 Did you have a dental visit in the last 12 months?: Yes Did you have a dental problem in the last 6 months where you did not have access to dental care?: No Was dental information given to patient?: Patient has dentist HPI HPI Comments History of Present Illness Details The patient is a 49 year old female presenting for a follow-up visit for management of multiple chronic conditions. She has a history of hypertension managed with losartan 100 mg and verapamil 240 mg, with good blood pressure control and resolution of her prior headaches, for which she has sumatriptan as needed. Her hyperlipidemia is treated with atorvastatin 10 mg, and her acidity is managed with pantoprazole. The patient reports significant improvement in her mental health after experiencing a severe depression, and she is now returning to work. She has been taking bupropion 150 mg and discontinued trazodone about a month ago due to constipation, an issue identified by her glost kiln placer. Since stopping trazodone, she reports feeling more alert and her bowel movements have returned to her normal pattern of daily or every other day. Recent laboratory results showed a blood glucose level of 112 mg/dL, indicating prediabetes. A new complaint is a palpable, sometimes painful, intermittent lump, for which she has an ultrasound scheduled. Her surgical history includes a hysterectomy, endoscopy, and endometrial ablation. She has a history of a positive stool-based colorectal cancer screening test, with the last follow-up colonoscopy performed last year. Her family history is positive for hypertension in both parents. Her allergies include pineapple, shellfish, animal dander, morphine, and sulfa drugs. [facility] Medical History (Updated 07/13/25 @ 16:50 by Yoana Saucedo MD) Migraine Pure hypercholesterolemia Morbid obesity with BMI of 40.0-44.9, adult Mild recurrent major depression Asthma exacerbation Contact with and (suspected) exposure to other viral communicable diseases Hypovitaminosis D Insomnia Depression with anxiety Moderate asthma Essential hypertension Pneumonia Surgical History History of endometrial ablation History of esophagogastroduodenoscopy (EGD) History of hysterectomy Family History Mother Hypertension Father Hypertension Mental health disorder Maternal Grandmother Colon cancer Other Family history of rheumatoid arthritis Social History Housing: House Alcohol intake: never Patient Tobacco Use Status: Never used Tobacco e-Cigarette/Vaping Use: Never Used Second Hand Smoke Exposure: No service: No Current occupational status: employed Current occupation: [employer],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 1. Little interest or pleasure in doing things: several days 2. Feeling down, depressed, or hopeless: nearly every day 3. Trouble falling or staying asleep, or sleeping too much: nearly every day 4. Feeling tired or having little energy: more than half the days 5. Poor appetite or overeating: nearly every day 6. Feeling bad about yourself - or that you are a failure or have let yourself or your family down: nearly every day 7. Trouble concentrating on things, such as reading the newspaper or watching television: nearly every day 8. Moving or speaking so slowly that other people could have noticed. Or the opposite - being so fidgety or restless that you have been moving around a lot more than usual: nearly every day 9. Thoughts that you would be better off or of hurting yourself in some way: nearly every day Total score: 24 Depression Screening Interpretation: Positive (no suicidal thoughts) Depression Screening Follow-up: Existing condition, In treatment and Follow-up Visit Requested Depression Screening Done: Yes 68118 - PHQ-9 Billing: Yes Source: Developed by Drs. Rohan Gil, Alexandra Cheng, Edd Noonan and colleagues, with an educational michele from [employer]. Thrive Questionnaire Date Thrive assessed: 07/13/25 I am a: Patient What is your living situation today?: I have a steady place to live Within the past 12 months, did the food you bought not last and you didn't have the money to get more?: Never true Within the past 12 months, did you worry whether your food would run out before you got money to buy more?: Never true Do you have trouble paying for medicines?: No Do you have trouble getting transportation to medical appointments?: No Do you have trouble paying your heating and electricity bill?: No Do you have trouble taking care of your child, family member or friend?: No Do you have trouble with day-to-day activities such as bathing, preparing meals, shopping, managing finances, etc.?: No Are you currently unemployed and looking for a job?: No Are you interested in more education?: No Please select the resources that you would like help with: None Currently or been in a relationship where the following occur: No concerns reported THRIVE Score: 0 AUDIT C Alcohol Use Questionnaire (AUDIT-C) 1. How often do you have a drink containing alcohol?: Never 2. How many drinks containing alcohol do you have on a typical day when you are drinking?: 1 or 2 3. How often do you have six or more drinks on one occasion?: Never Total Score: 0 Score Reviewed/Action Taken: No OLIVIA-7 AMB Questionnaire OLIVIA-7 Date OLIVIA - 7 assessed: 07/13/25 Feeling nervous, anxious, or on edge: 2 = More than half the days Not being able to stop or control worryin = Several days Worrying too much about different things: 1 = Several days Trouble relaxin = Several days Being so restless that it is hard to sit still: 0 = Not at all Becoming easily annoyed or irritable: 0 = Not at all Feeling afraid as if something awful might happen: 0 = Not at all Total OLIVIA-7 score (0-4 normal; 5-9 mild; 10-14 moderate; 15-21 severe): 5 Source: Developed by Drs. Rohan Gil, Alexandra Cheng, Edd Noonan and colleagues, with an educational michele from [employer]. OLIVIA-7 Assessment Billing OLIVIA-7 Assessment Tool: OLIVIA-7 Assessment 78819 Review of Systems Const All systems reviewed & are unremarkable except as noted in HPI and below Card Denies chest pain at rest, Denies chest pain with activity, Denies edema, Denies irregular heart rhythm, Denies claudication, Denies dyspnea, Denies dyspnea on exertion, Denies orthopnea, Denies paroxysmal nocturnal dyspnea and Denies slow heart rate Resp Denies cough, Denies dyspnea and Denies dyspnea on exertion GI Denies abdominal pain, Denies change in bowel habits, Denies excessive flatus, Denies nausea and Denies vomiting Denies urinary incontinence, Denies urinary hesitancy and Denies urinary urgency Musc Denies atrophy, Denies deformity and Denies limited range of motion Skin/Breast Denies bleeding lesions, Denies changing lesions and Denies rash Physical exam (Primary Care) Vital Signs: Last Vital Signs Temp 97.3 F 07/13/25 15:54 Pulse 96 07/13/25 15:54 Resp 16 07/13/25 15:54 BP 132/70 07/13/25 15:54 Pulse Ox 96 07/13/25 15:54 Oxygen Delivery Method Room Air 07/13/25 15:54 BMI result Body Mass Index 39.4 Tobacco/Smoking Status: Tobacco use Status Tobacco use date assessed 07/13/25 07/13/25 16:00 Patient Tobacco Use Status Never used Tobacco 07/13/25 16:00 Tobacco use type 02/15/25 15:42 e-Cigarette/Vaping Use Never Used 07/13/25 16:00 PHQ-9: PHQ-9 Score PHQ-9: Total score 24 07/13/25 16:06 Depression Screening Interpretation: Positive (no suicidal thoughts) Depression Screening Follow-up: Existing condition, In treatment and Follow-up Visit Requested Thrive Assessment: Date of Thrive Assessment Date Thrive assessed 07/13/25 07/13/25 16:00 Currently or been in a relationship where the following occur: No concerns reported HENMT Head: Yes normal to inspection, Yes normocephalic and Yes atraumatic Ears: external ears normal Eyes General: appearance normal, both eyes and all related structures Eyelids: Yes eyelids normal Conjunctivae: conjunctivae normal Neck Neck: Yes normal visual inspection and Yes supple Resp Effort & Inspection: normal respiratory effort Auscultation: clear to auscultation bilaterally Cardio Jugular venous distension: no JVD Rate: regular rate Rhythm: regular rhythm Heart sounds: S1 normal heart sound present and S2 normal heart sound present GI Inspection: Yes normal to inspection Palpation (GI): Soft to palpation and nontender Auscultation: normal bowel sounds Skin General skin exam: no rashes or lesions noted Neuro General: no focal motor deficits Extrem General: Yes full ROM Psych Appearance: grossly normal Coding Level of Care Code Est Pt Prev Care 40-64y(56809) Diagnoses Physical exam Z00.00 Severe recurrent major depression without psychotic features F33.2 Obesity, Class II, BMI 35-39.9, isolated E66.812 Additional Codes OLIVIA-7 Assessment Billing - OLIVIA-7 Assessment Tool: OLIVIA-7 Assessment 12341 ([id number]) PHQ-9 - 65823 - PHQ-9 Billing: Yes ([id number]) Time Spent (min) 30 Assessment & Plan Assessment & Plan (1) Physical exam: Code(s): Z00.00 - Encounter for general adult medical examination without abnormal findings Category: Medical (2) Severe recurrent major depression without psychotic features: Code(s): F33.2 - Major depressive disorder, recurrent severe without psychotic features Category: Medical (3) Obesity, Class II, BMI 35-39.9, isolated: Code(s): E66.812 - Obesity, class 2 Category: Medical Plan Plan 1. Physical exam Repeat in a year. 2. Hypertension The patient's blood pressure is well-controlled on her current medications. She will continue taking losartan 100 mg and verapamil 240 mg. 3. Prediabetes Recent labs revealed a blood glucose of 112 mg/dL, which is in the prediabetic range. A repeat blood sugar test will be performed at the next visit. 4. Hyperlipidemia The patient's cholesterol is well-controlled. She will continue taking atorvastatin 10 mg. 5. Depression And Insomnia The patient reports significant improvement in her depression and alertness, coinciding with her return to work. She has discontinued trazodone due to constipation, which has since resolved. She will continue bupropion 150 mg and has trazodone available if needed, though she is encouraged to use [id number] melatonin. Orders: Orders Comprehensive [place]. Panel Fast 4 Months R73.02 - Impaired glucose tolerance (oral) Medications: New phentermine must administer 30 minutes before or 1-2 hours after breakfast 37.5 mg PO DAILY 30 tabs 0RF 30 days E66.812 - Obesity, class 2
== END 2025-07-13 16:50 | disposition home or self-care (01) ==
LOC: HO.HMCH 15:33
PROVIDERS: PCP Internal Medicine; Visit Provider Internal Medicine
DX: Z00.00 Encounter for general adult medical examination without abnormal findings (principal); F33.2 Major depressive disorder, recurrent severe without psychotic features; E66.812 Obesity, class 2; Z68.39 Body mass index [BMI] 39.0-39.9, adult

== ENCOUNTER → 2025-07-13 15:32 | Outpatient (BNVA) | payer OTHER, SELFPAY | PROVIDERS: PCP Internal Medicine; Visit Provider Internal Medicine | DX: Z00.00 Encounter for general adult medical examination without abnormal findings (principal); F33.2 Major depressive disorder, recurrent severe without psychotic features; E66.812 Obesity, class 2 | CPT/HCPCS: 96127 ==